=== PATIENT | female | born 1985 | race Hispanic/Latino ===

== ENCOUNTER 2019-08-01 06:14 | Emergency (ER) | payer OTHER ==
[2019-08-01] MEDS ORDERED: MORPHINE 4 MG/ML SYR ONE (07:14)
[2019-08-01] MEDS ORDERED: ONDANSETRON 4 MG/2 ML VIAL ONE (07:15)
[2019-08-01 07:17] LABS: Absolute Lymphocytes (CBC) 1.4 K/uL (0.7-4.9); Basophils % 0.2 % (0-1.3); Hematocrit 33.9 % (36.0-45.0); Lymphocytes % 10.1 % (15.3-44.8); MPV 9.1 fL (7.6-11.3); RBC Red Blood Cell Count 3.97 M/uL (3.86-4.86)
[2019-08-01 08:06] LABS: BUN Blood Urea Nitrogen 6 mg/dL (7-18); Bicarbonate 25 mmol/L (21-32); Glucose Level 94 mg/dL (74-106); HCG, Quantitative 934 mIU/mL (1-3); Potassium 3.7 mmol/L (3.5-5.1); Sodium Level 140 mmol/L (136-145)
--- NOTE | 2019-08-01 09:38 | RAD REPORT ---
EXAM DESCRIPTION: US - Transvaginal Study Probe - 08/01/2019 8:06 am CLINICAL HISTORY: retained POC. Given Cytotec 07/26. Worsening of pain bleed Pelvic pain. COMPARISON: No comparisons FINDINGS: The uterus appears enlarged measuring 9.3 x 4.8 x 7.0 cm. Dilatation of the endometrium is seen with echogenic material present measuring 4.5 x 2.8 cm. The ech ogenic material somewhat heterogenous and mild fluid is seen the adjacent within the endometrium. Both ovaries were obscured by bowel gas. No adnexal masses. No significant pelvic ascites. IMPRESSION: Large area of echogenic material (4.5 x 2.8 cm) within a dilated endometrium raises susp icion for retained products.
[2019-08-01] MEDS ORDERED: FENTANYL CITR 100 MCG/2 ML ONE (09:41)
--- NOTE | 2019-08-01 10:06 | ER ---
Nurse's Notes [facility] Name: Lubna Joe Age: 33 yrs Sex: Female : 1985 Arrival Date: 08/01/2019 Time: 06:18 Bed 6 Private MD: Diagnosis: Abnormal product of conception, unspecified-Retained product Presentation: 08/01 06:33 Presenting complaint: Patient states: miscarriage on 07/12/20. Misoprostol vaginally dm5 inserted on 07/26. passed a large clot on 07/30 and has had pain. woke up on 08/01/19 at 0400 with a lot of pain and a full pad. Pt has not had a full pad since but has been passing clots every time she uses the restroom. Pain rated at 10/10. Transition of care: patient was not received from another setting of care. Onset of symptoms was July 30, 2019. Risk Assessment: Do you want to hurt yourself or someone else? Patient reports no desire to harm self or others. Initial Sepsis Screen: Does the patient meet any 2 criteria? No. Patient's initial sepsis screen is negative. Does the patient have a suspected source of infection? No. Patient's initial sepsis screen is negative. Care prior to arrival: None. 06:33 Method Of Arrival: Ambulatory dm5 06:33 Acuity: LEONEL 3 dm5 Triage Assessment: 06:38 General: Appears in no apparent distress. uncomfortable. 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 - Social history:: Smoking status: Patient/guardian denies using tobacco. - Ebola Screening: : Patient negative for fever greater than or equal to 101.5 degrees Fahrenheit, and additional compatible Ebola Virus Disease symptoms Patient denies exposure to infectious person. Screenin:35 Abuse screen: Denies threats or abuse. Denies injuries from another. Nutritional wh screening: No deficits noted. Tuberculosis screening: No symptoms or risk factors identified. Fall Risk None identified. Assessment: 06:35 General: Appears in no apparent distress. Behavior is calm, cooperative, appropriate wh for age. Pain: Complains of pain in suprapubic area Pain radiates to back Pain currently is 9 out of 10 on a pain scale. Pain began 2-3 days ago. Neuro: Level of Consciousness is awake, alert, obeys commands, Oriented to person, place, time, situation, Appropriate for age. Cardiovascular: Heart tones S1 S2 Capillary refill < 3 seconds. Respiratory: Airway is patent Respiratory effort is even, unlabored, Respiratory pattern is regular, symmetrical, Breath sounds are clear bilaterally. GI: Abdomen is flat, non-distended, Abd is soft X 4 quads Abdomen is tender to palpation in suprapubic area. : Urine is Reports vaginal bleeding that is. EENT: No signs and/or symptoms were reported regarding the EENT system. Derm: Skin is intact, is healthy with good turgor, Skin is pink, warm \T\ dry. normal. Musculoskeletal: Circulation, motion, and sensation intact. 07:34 Reassessment: Patient appears in no apparent distress at this time. Patient and/or tw2 family updated on plan of care and expected duration. Pain level reassessed. Patient is alert, oriented x 3, equal unlabored respirations, skin warm/dry/pink. Patient states feeling better. 08:30 Reassessment: Patient appears in no apparent distress at this time. Patient and/or ph family updated on plan of care and expected duration. Pain level reassessed. Patient is alert, oriented x 3, equal unlabored respirations, skin warm/dry/pink. 09:22 Reassessment: Patient appears in no apparent distress at this time. Patient and/or ph family updated on plan of care and expected duration. Pain level reassessed. Patient is alert, oriented x 3, equal unlabored respirations, skin warm/dry/pink. Pt resting quietly, awaiting US results, family at bedside. 09:50 Reassessment: Patient appears in no apparent distress at this time. Patient and/or ph family updated on plan of care and expected duration. Pain level reassessed. Patient is alert, oriented x 3, equal unlabored respirations, skin warm/dry/pink. At bedside w/ ERP for pelvic exam, pt tolerated well. 10:19 Reassessment: Patient is alert, oriented x 3, equal unlabored respirations, skin ph warm/dry/pink. 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 Vital Signs: 06:38 BP 125 / 85; Pulse 93; Resp 18; Temp 98.8; Pulse Ox 99% on R/A; dm5 06:39 BP 122 / 85; Pulse 89; Resp 18; Temp 98.8; Pulse Ox 100% ; Weight 66.68 kg; Height 5 wh ft. 2 in. (157.48 cm); Pain 9/10; 07:34 BP 104 / 74; Pulse 86; Resp 17; Pulse Ox 97% on R/A; tw2 08:30 BP 108 / 70; Pulse 76; Resp 16; Pulse Ox 99% on R/A; ph 09:21 BP 102 / 69; Pulse 72; Resp 18; Pulse Ox 98% on R/A; ph 06:39 Body Mass Index 26.89 (66.68 kg, 157.48 cm) ED Course: 06:18 Patient arrived in ED. ds1 06:24 Kartik Carrillo PA is PHCP. jr8 06:24 Grayson Mercedes MD is Attending Physician. jr8 06:35 Joshua Walls is Primary Nurse. wh 06:36 Triage completed. dm5 06:38 Patient has correct armband on for positive identification. Bed in low position. Call light in reach. Side rails up X 1. Pulse ox on. NIBP on. 06:38 Arm band placed on right wrist. wh 06:55 Inserted saline lock: 20 gauge in right forearm, using aseptic technique. Blood oe collected. 08:06 Ultrasound completed. Patient tolerated well. sg3 08:07 US Transvaginal Study (Probe) In Process Unspecified. EDMS 09:50 Assist provider with pelvic exam: Set up pelvic tray. Performed by Kartik JAIN ph Patient tolerated well. 10:22 IV discontinued, intact, bleeding controlled, No redness/swelling at site. Pressure ph dressing applied. Administered Medications: 07:07 Drug: Zofran 4 mg Route: IVP; Site: right antecubital; ph 07:30 Follow up: Response: No adverse reaction ph 07:15 Drug: morphine 4 mg Route: IVP; Site: right antecubital; ph 07:30 Follow up: Response: No adverse reaction; Pain is decreased ph Outcome: 10:05 Discharge ordered by MD. calhoun 10:22 Discharged to home ambulatory, with family. ph 10:22 Condition: stable 10:22 Discharge instructions given to patient, Instructed on discharge instructions, follow up and referral plans. medication usage, Demonstrated understanding of instructions, follow-up care, medications, Prescriptions given X 2. 10:23 Patient left the ED. ph Signatures: Dispatcher [employer] EDVT Nhung Tee, RN RN dm5 Sangita Page ds1 Kartik Carrillo PA PA jr8 Nanci Bruno RN RN Krysta Rutledge RN RN tw2 Michael Wiley Winsy wh Godinez, Sarah 3
--- NOTE | 2019-08-01 10:07 | EDPHYS ---
Physician Documentation [facility] Name: Lubna Joe Age: 33 yrs Sex: Female : 1985 Arrival Date: 08/01/2019 Time: 06:18 Bed 6 Private MD: ED Physician Grayson Mercedes HPI: 08/01 07:36 This 33 yrs old Female presents to ER via Ambulatory with complaints of jr8 Vaginal Bleeding, Lower Abd Pain. 07:36 Onset: The symptoms/episode began/occurred gradually, 1 week(s) ago. Modifying factors: jr8 The symptoms are alleviated by nothing, the symptoms are aggravated by nothing. Associated signs and symptoms: Pertinent positives: cramping. Severity of symptoms: At their worst the symptoms were moderate, in the emergency department the symptoms are unchanged. The patient has not experienced similar symptoms in the past. The patient has been recently seen by a physician:. Patient stated that she had miscarriage at 13 weeks gestation. History of uterine fibroids as well. Undetermined cause of miscarry. Date of miscarry was June. Stated that she had retained POC. Was given Cytotec and then given another round of Cytotec after that. Having cramping and clots but noted that one large clot dislodged a lot of the Cytotec pills. Today having worsening of pain with large clots. 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 - Social history:: Smoking status: Patient/guardian denies using tobacco. - Ebola Screening: : Patient negative for fever greater than or equal to 101.5 degrees Fahrenheit, and additional compatible Ebola Virus Disease symptoms Patient denies exposure to infectious person. ROS: 07:36 Eyes: Negative for injury, pain, redness, and discharge, ENT: Negative for injury, jr8 pain, and discharge, Neck: Negative for injury, pain, and swelling, Cardiovascular: Negative for chest pain, palpitations, and edema, Respiratory: Negative for shortness of breath, cough, wheezing, and pleuritic chest pain, Back: Negative for injury and pain, MS/Extremity: Negative for injury and deformity, Skin: Negative for injury, rash, and discoloration, Neuro: Negative for headache, weakness, numbness, tingling, and seizure. 07:36 Abdomen/GI: Positive for abdominal cramps, Negative for nausea, vomiting, and diarrhea. 07:36 : Positive for vaginal bleeding. Exam: 07:36 Eyes: Pupils equal round and reactive to light, extra-ocular motions intact. Lids and jr8 lashes normal. Conjunctiva and sclera are non-icteric and not injected. Cornea within normal limits. Periorbital areas with no swelling, redness, or edema. ENT: Nares patent. No nasal discharge, no septal abnormalities noted. Tympanic membranes are normal and external auditory canals are clear. Oropharynx with no redness, swelling, or masses, exudates, or evidence of obstruction, uvula midline. Mucous membranes moist. Neck: Trachea midline, no thyromegaly or masses palpated, and no cervical lymphadenopathy. Supple, full range of motion without nuchal rigidity, or vertebral point tenderness. No Meningismus. Cardiovascular: Regular rate and rhythm with a normal S1 and S2. No gallops, murmurs, or rubs. Normal PMI, no JVD. No pulse deficits. Respiratory: Lungs have equal breath sounds bilaterally, clear to auscultation and percussion. No rales, rhonchi or wheezes noted. No increased work of breathing, no retractions or nasal flaring. Back: No spinal tenderness. No costovertebral tenderness. Full range of motion. Skin: Warm, dry with normal turgor. Normal color with no rashes, no lesions, and no evidence of cellulitis. MS/ Extremity: Pulses equal, no cyanosis. Neurovascular intact. Full, normal range of motion. Neuro: Awake and alert, GCS 15, oriented to person, place, time, and situation. Cranial nerves II-XII grossly intact. Motor strength 5/5 in all extremities. Sensory grossly intact. Cerebellar exam normal. Normal gait. 07:36 Abdomen/GI: Inspection: gravid appearance, is noted, Bowel sounds: active, all quadrants, Palpation: soft, in all quadrants, moderate abdominal tenderness, in the right lower quadrant and left lower quadrant, Indicators: McBurney's point is not tender, Fernandez's sign is negative, Rovsing's sign is negative, Obturator sign is negative, Liver: tenderness, is not appreciated. Vital Signs: 06:38 BP 125 / 85; Pulse 93; Resp 18; Temp 98.8; Pulse Ox 99% on R/A; dm5 06:39 BP 122 / 85; Pulse 89; Resp 18; Temp 98.8; Pulse Ox 100% ; Weight 66.68 kg; Height 5 wh ft. 2 in. (157.48 cm); Pain 9/10; 07:34 BP 104 / 74; Pulse 86; Resp 17; Pulse Ox 97% on R/A; tw2 08:30 BP 108 / 70; Pulse 76; Resp 16; Pulse Ox 99% on R/A; ph 09:21 BP 102 / 69; Pulse 72; Resp 18; Pulse Ox 98% on R/A; ph 06:39 Body Mass Index 26.89 (66.68 kg, 157.48 cm) wh MDM: 06:31 Patient medically screened. [facility] 10:01 Data reviewed: vital signs, nurses notes, lab test result(s), radiologic studies, jr8 ultrasound. Data interpreted: Pulse oximetry: on room air is 98 %. Interpretation: normal. Counseling: I had a detailed discussion with the patient and/or guardian regarding: the historical points, exam findings, and any diagnostic results supporting the discharge/admit diagnosis, lab results, radiology results, the need for outpatient follow up, an OB/Gyne specialist, to return to the emergency department if symptoms worsen or persist or if there are any questions or concerns that arise at home. ED course: Patient hemodynamically stable. Pelvic exam revealed small amount of maroon blood. No discharge present. Os still open. Patient without fever. Pain controlled. No s/s of endometritis and no mass hemorrhage present. Patient has f/u appointment with [facility] tomorrow. Explained to her that she still appears to have some retained POC but that she is very stable at this moment and without signs of infection. Recommended f/u tomorrow with OB. If at anytime she were to worsen, have hemorrhage, or to run fevers to immediately come back for emergent DNC. Otherwise acceptable to go home today since she has immediate f/u tomorrow with OB. Patient good with this plan . 08/01 06:36 Order name: CBC with Diff; Complete Time: 07:54 08/01 06:36 Order name: Basic Metabolic Panel; Complete Time: 08:07 08/01 06:36 Order name: Quantitative Hcg; Complete Time: 08:07 08/01 06:36 Order name: T\T\S; Complete Time: 08:07 08/01 06:36 Order name: US Transvaginal Study (Probe); Complete Time: 09:41 08/01 06:36 Order name: IV; Complete Time: 06:41 Administered Medications: 07:07 Drug: Zofran 4 mg Route: IVP; Site: right antecubital; ph 07:30 Follow up: Response: No adverse reaction ph 07:15 Drug: morphine 4 mg Route: IVP; Site: right antecubital; ph 07:30 Follow up: Response: No adverse reaction; Pain is decreased ph Disposition: 08/01/19 10:05 Discharged to Home. Impression: Abnormal product of conception, unspecified - Retained product. - Condition is Stable. - Discharge Instructions: Incomplete Miscarriage. - Prescriptions for Tylenol- Codeine #3 300-30 mg Oral Tablet - take 2 tablets by ORAL route every 6 hours As needed; 20 tablet. Doxycycline Monohydrate 100 mg Oral Tablet - take 1 tablet by ORAL route every 12 hours for 10 days; 20 tablet. - Medication Reconciliation Form, Thank You Letter, Antibiotic Education, Prescription Opioid Use form. - Follow up: Private Physician; When: Tomorrow; Reason: Recheck today's complaints, Continuance of care, Re-evaluation by your physician. - Problem is new. - Symptoms have improved. Signatures: Dispatcher [employer] EDMS Nhung Tee RN RN dm5 Kartik Carrillo PA PA jr8 Nanci Bruno RN RN ph Joshua Walls Corrections: (The following items were deleted from the chart) 10:14 10:01 ED course: Patient hemodynamically stable. Pelvic exam revieled small amount of lj mack blood. No discharge present. Os still open. Patient without fever or systemic WBC count. Pain controlled. No s/s of endometritis and no mass hemorrhage present. Patient has f/u appointment with [facility] tomorrow. Explained to her that she still appears to have some retained POC but that she is very stable at this moment and without signs of infection. Recommended f/u tomorrow with OB. If at anytime she were to worsen, have hemorrhage, or to run fevers to immediately come back for emergent DNC. Otherwise acceptable to go home today since she has immediate f/u tomorrow with OB. Patient good with this plan . jr8 10:23 10:05 08/01/2019 10:05 Discharged to Home. Impression: Abnormal product of conception, ph unspecified - Retained product. Condition is Stable. Forms are Medication Reconciliation Form, Thank You Letter, Antibiotic Education, Prescription Opioid Use. Follow up: Private Physician; When: Tomorrow; Reason: Recheck today's complaints, Continuance of care, Re-evaluation by your physician. Problem is new. Symptoms have improved. jr8
[2019-08-01 10:37] VITALS: TEMP 98.8
[2019-08-01 10:43] VITALS: BP 102/69; O2SAT 98
== END 2019-08-01 10:23 | disposition home or self-care (01) ==
LOC: ER 06:14
DX: O02.9 Abnormal product of conception, unspecified (principal)
CPT/HCPCS: 85025; 80048; 36415; 86900; 86850; 86901; 84702; 76830; 96375; 96374; 99284; J3010; J2405

== ENCOUNTER 2019-09-23 19:13 | Emergency (ER) | payer OTHER ==
--- OUTSIDE RECORDS SUMMARY | 2019-09-23 19:16 | XMS REPORT | Summary of Care ---
:1985 Author Organization [facility] - [facility] Address [address] [place] [address] Care Team Providers Name Role Phone Josh Smith MD Primary Care Provider Reason for Visit Reason Comments Follow-up Encounter Details Date Type Department Care Team Description 09/06/2019 Office Visit [facility], Nohelia Amato MD Retained products of conception after miscarriage (Primary Dx); Healthcare- [address] Encounter for BCP ( control pills) initial prescription; [address] [place], [place] [address]DR. Dysmenorrhea [address] [facility] [address] [place] [address] [phone] Allergies No Known Allergiesdocumented as of this encounter (statuses as of 09/06/2019) Medications Medication Sig Dispensed Refills Start End Date Status Date ibuprofen 600 mg Take 1 30 tablet 1 Active tabletIndications: tablet by 0 Retained products of mouth every conception after 6 (six) miscarriage, S/P D&C hours as (status post dilation needed for and curettage) Pain (scale 1-3) or Pain (scale 4-6). ferrous sulfate 325 Take 1 60 capsule 3 Active mg (65 mg iron) SR capsule by 0 capsuleIndications: mouth 2 Retained products of (two) times conception after daily. miscarriage, S/P D&C (status post dilation and curettage) Ascorbic Acid Take 1 30 tablet 3 Active (VITAMIN C) 500 mg TAB-CAP/M2 0 ChewIndications: by mouth Retained products of daily. conception after miscarriage, S/P D&C (status post dilation and curettage) foLIC acid 1 mg Take 1 30 tablet 3 Active tabletIndications: tablet by 0 Retained products of mouth daily. conception after miscarriage, S/P D&C (status post dilation and curettage) norgestimate-ethinyl Take 1 4 Package 3 Active estradiol 0.25-35 tablet by 0 mg-mcg per mouth daily. tabletIndications: Encounter for BCP ( control pills) initial prescription ibuprofen 600 mg Take 1 30 tablet 1 Active tabletIndications: tablet by 0 Dysmenorrhea mouth every 6 (six) hours as needed for Pain (scale 1-3) or Pain (scale 4-6). methylergonovine 0.2 Take 1 4 tablet 0 09/06/19 Discontinued mg tabletIndications: tablet by 0 20 (Therapy Retained products of mouth every completed) conception after 6 (six) miscarriage, S/P D&C hours. (status post dilation and curettage) HYDROcodone-acetamino Take 1 20 tablet 0 09/06/19 Discontinued phen 5-325 mg tablet by 0 20 (Therapy tabletIndications: mouth every completed) S/P D&C (status post 6 (six) dilation and hours as curettage) needed for Pain (scale 4-6) or Pain (scale 7-10). documented as of this encounter (statuses as of 09/06/2019) Active Problems Problem Noted Date Encounter for BCP ( control pills) initial prescription 09/06/2019 Dysmenorrhea 09/06/2019 Postoperative anemia due to acute blood loss 08/07/2019 Intramural leiomyoma of uterus 08/07/2019 Retained products of conception after miscarriage 07/26/2019 Chronic pain of multiple joints 04/20/2018 Seasonal allergies documented as of this encounter (statuses as of 09/06/2019) Resolved Problems Problem Noted Date Resolved Date Anemia 08/06/2019 08/07/2019 13 weeks gestation of 07/07/2019 07/26/2019 Abdominal cramping affecting 07/07/2019 07/07/2019 Threatened , antepartum 07/07/2019 07/26/2019 Abnormal maternal glucose tolerance, antepartum 07/07/2019 08/23/2019 Iron deficiency anemia 04/20/2018 07/07/2019 documented as of this encounter (statuses as of 09/06/2019) Immunizations Name Administration Dates Next Due Influenza Virus Vaccine Quad .5 mL IM 6+ MO 06/09/2019 documented as of this encounter Social History Tobacco Use Types Packs/Day Years Used Date Never Smoker Smokeless Tobacco: Never Used Alcohol Use Drinks/Week oz/Week Comments No Financial Resource Strain Answer Date Recorded How hard is it for you to pay for the very basics like Not hard at all 2019 food, housing, medical care, and heating? Food Insecurity Answer Date Recorded Within the past 12 months, you worried that your food would Never true 2019 run out before you got money to buy more. Within the past 12 months, the food you bought just didn't Never true 2019 last and you didn't have money to get more. Transportation Needs Answer Date Recorded In the past 12 months, has lack of transportation kept you from No 08/06/2019 medical appointments or from getting medications? In the past 12 months, has lack of transportation kept you from No 08/06/2019 meetings, work, or getting things needed for daily living? Sex Assigned at Date Recorded Not on file Job Start Date Occupation Industry Not on file Not on file Not on file Travel History Travel Start Travel End No recent travel history available. documented as of this encounter Last Filed Vital Signs Vital Sign Reading Time Taken Comments Blood Pressure 105/75 09/06/2019 10:05 AM GLASS GRINDER Pulse 87 09/06/2019 10:05 AM GLASS GRINDER Temperature 36.8 C (98.2 F) 09/06/2019 10:05 AM GLASS GRINDER Respiratory Rate 18 09/06/2019 10:05 AM GLASS GRINDER Oxygen Saturation - - Inhaled Oxygen Concentration - - Weight 64.9 kg (143 lb) 09/06/2019 10:05 AM GLASS GRINDER Height 157.5 cm (5' 2") 09/06/2019 10:05 AM GLASS GRINDER Body Mass Index 26.16 09/06/2019 10:05 AM GLASS GRINDER documented in this encounter Progress Notes Nohelia Guerra MD - 09/06/2019 9:45 AM CST Chief complaint: Chief Complaint Patient presents with Follow-up HPI Lubna Joe is a 33 year old female s/p D&C for retained POCs on 08/06/2019 presented for follow-up. States that she had spotting since last seen and then on 09/01/2019 had heavy vaginal bleeding with cramping. Cramping relieved with taking Ibuprofen 2x/day. Feels like her period but a little heavier. Denies chest pain, SOB, dizziness, palpitations, or fatigue. Histories OB History Para Term AB Living 1 0 0 0 1 0 SAB TAB Ectopic Multiple Live Births 1 0 0 0 0 # Outcome Date GA Lbr Rowdy/2nd Weight Sex Delivery Anes PTL Lv 1 SAB 07/12/19 13w5d Past Medical History: Diagnosis Date Abnormal maternal glucose tolerance, antepartum 07/07/2019 Abnormal uterine bleeding Chronic pain of multiple joints 04/20/2018 Intramural leiomyoma of uterus 08/07/2019 Iron deficiency anemia 04/20/2018 Seasonal allergies Family History Problem Relation Age of Onset Hypertension Mother Diabetes Mother Kidney disease Mother Hypertension Father Hypercholesterolemia Father Kidney disease Father Stomach Cancer Maternal Grandmother Arthritis NoFHx Asthma NoFHx defects NoFHx Breast Cancer NoFHx Colon Cancer NoFHx Ovarian Cancer NoFHx Uterine Cancer NoFHx Cancer NoFHx Depression NoFHx Genetic NoFHx Heart NoFHx High cholesterol NoFHx Mental retardation NoFHx Neurological NoFHx Osteoporosis NoFHx Psychiatry NoFHx Other - see comments NoFHx Family Status Relation Name Status Mo Alive Fa Alive MGMo (Not Specified) NoFHx (Not Specified) Past Surgical History: Procedure Laterality Date DILATION AND CURETTAGE (SHX) 08/06/2019 DILATION AND CURETTAGE (SHX) N/A 08/06/2019 Surgeon: Nohelia Guerra MD; [place] [facility] [place] History Socioeconomic History Marital status: Spouse name: Not on file Number of children: Not on file Years of education: 12 Highest education level: Not on file Occupational History Not on file Social Needs Financial resource strain: Not hard at all Food insecurity: Worry: Never true Inability: Never true Transportation needs: Medical: No Non-medical: No Tobacco Use Smoking status: Never Smoker Smokeless tobacco: Never Used Substance and Sexual Activity Alcohol use: No Drug use: No Sexual activity: Yes Partners: Male control/protection: None Lifestyle Physical activity: Days per week: Not on file Minutes per session: Not on file Stress: Not on file Relationships Social connections: Talks on phone: Not on file Gets together: Not on file Attends mu-ism service: Not on file Active member of club or organization: Not on file Attends meetings of clubs or organizations: Not on file Relationship status: Not on file Intimate partner violence: Fear of current or ex partner: Not on file Emotionally abused: Not on file Physically abused: Not on file Forced sexual activity: Not on file Other Topics Concern Not on file Social History Narrative Denies domestic or physical violence within the home. Evangelical Preference: Roman [employer] Social History Substance and Sexual Activity Sexual Activity Yes Partners: Male control/protection: None Labs Beta-HCG drawn this morning, pending Radiology No new radiology. Allergies Lubna has No Known Allergies. Medications Lubna has a current medication list which includes the following prescription (s): folic acid, ascorbic acid, ferrous sulfate, and ibuprofen. Review of Systems Genitourinary: Positive for vaginal bleeding. BP 105/75 (BP Location: Left arm, Patient Position: Sitting, BP CUFF SIZE: Adult Small) | Pulse 87| Temp 36.8 C (98.2 F) (Oral) | Resp 18 | Ht 5' 2 " (1.575 m) | Wt 143 lb (64.9 kg) | BMI 26.16 kg/m Pregravid BMI: Could not be calculated Physical Exam Vitals reviewed. Constitutional: She is oriented to person, place, and time. She appears well- developed and well-nourished. Cardiovascular: Regular rate and rhythm. Pulmonary/Chest: Normal inspiratory effort. Abdominal: Abdomen is soft. No tenderness present. No hernia palpated or inspected. Neuro/Psychiatric: She has a normal mood and affect. She is oriented to person, place, and time. Skin: Skin normal. No rash present. External genitalia: Normal external genitalia appropriate for age. Vagina: Minimal amount dark blood in the vaginal vault Assessment/Plan Retained products of conception after miscarriage (primary encounter diagnosis) Comment: Downtrending Beta-HCG; Beta-HCG result pending this am. Plan: POCT TEST; Repeat Beta-HCG weekly until negative. Continue pelvic rest until negative Encounter for BCP ( control pills) initial prescription Comment: Patient denies self or family history of thromboembolic disease or thrombophilia, migraine headache. I counseled patient regarding use of oral contraceptives. There are combined oral contraceptive, which has both estrogen and progestin, and there is progestin only oral contraceptive. With typical use , 9 out 100 women get in the first year and with perfect use 0.3 out of 100 womenget in the first year according to ACOG Practice Bulletin. Risks include but not limited to increase risk of thromboembolic disease, headache, weight gain, mood lability, and breast cancer. Decrease risks of ovarian cancer, colon cancer, and endometrial cancer. Oral contraceptive may decrease milk supply. Alternatives reviewed include patch, ring, Depo-Provera, Nexplanon, and IUD. Advise using condoms for STDs prevention. Plan: norgestimate-ethinyl estradiol 0.25-35 mg-mcg per tablet extended regimen (period every 3 months) Dysmenorrhea Plan: ibuprofen 600 mg tablet Return to clinic in 04/2020 for WWE or PRN when she is ready to proceed with myomectomy Discussed treatment options. Medications as ordered. Reviewed patient instructions and provided printed copy. This visit did not involve counseling and coordination that comprised more than 50% of the visit time. Nohelia Guerra MD 09/06/2019 11:55 AM documented in this encounter Plan of Treatment Date Type Specialty Care Team Description 05/08/2020 Office Visit Obstetrics & Gynecology Nohelia Guerra MD [address] [place] [address] [place] [address] [phone] Health Maintenance Due Date Last Done Comments VARICELLA VACCINES (1 of 2 - 1985 2-dose childhood series) DTaP,Tdap,and Td Vaccines ( - 11/28/1995 Tdap) PAP SMEAR 05/19/2022 05/19/2019 INFLUENZA VACCINE Completed 06/09/2019 PNEUMOCOCCAL 0-64 YEARS COMBINED Aged Out No longer eligible based on SERIES patient's age to complete this topic documented as of this encounter Procedures Procedure Name Priority Date/Time Associated Diagnosis Comments POCT TEST Routine 09/06/2019 Retained products of Results for this conception after procedure are in the miscarriage results section. documented in this encounter Results POCT TEST (09/06/2019) POCT PREG Positive On board controls acceptable Yes with C Line POCT PREG LOT # POCT PREG TEST DATE Specimen Urine - URINE, CLEAN CATCH documented in this encounter Visit Diagnoses Diagnosis Retained products of conception after miscarriage - Primary Encounter for BCP ( control pills) initial prescription General counseling for prescription of oral contraceptives Dysmenorrhea documented in this encounter documented as of this encounter
--- OUTSIDE RECORDS SUMMARY | 2019-09-23 19:16 | XMS REPORT ---
:1984 Author Organization [facility] Address [address] [place] [address] Dr. Harris [address] [place] [address] Care Team Providers Name Role Phone Unavailable Unavailable Unavailable Problems This patient has no known problems. Allergies, Adverse Reactions, Alerts This patient has no known allergies or adverse reactions. Medications This patient has no known medications.
--- OUTSIDE RECORDS SUMMARY | 2019-09-23 19:16 | XMS REPORT | Summary of Care ---
:1985 Author Organization [facility] - [facility] Address [address] [place] [address] Care Team Providers Name Role Phone Josh Smith MD Primary Care Provider Reason for Visit Reason Comments Follow-up Encounter Details Date Type Department Care Team Description 09/06/2019 Office Visit [facility] Guerra, Nohelia Amato MD Retained products of conception after miscarriage (Primary Dx); Healthcare- [address] Encounter for BCP ( control pills) initial prescription; [address] [place], [place] [address]DR. Dysmenorrhea [address] [facility] [address] [place] [address] [phone] Allergies No Known Allergiesdocumented as of this [...] Comments Blood Pressure 105/75 09/06/2019 10:05 AM HARDWARE SUPPLIES SALES REPRESENTATIVE Pulse 87 09/06/2019 10:05 AM HARDWARE SUPPLIES SALES REPRESENTATIVE Temperature 36.8 C (98.2 F) 09/06/2019 10:05 AM HARDWARE SUPPLIES SALES REPRESENTATIVE Respiratory Rate 18 09/06/2019 10:05 AM HARDWARE SUPPLIES SALES REPRESENTATIVE Oxygen Saturation - - Inhaled Oxygen Concentration - - Weight 64.9 kg (143 lb) 09/06/2019 10:05 AM HARDWARE SUPPLIES SALES REPRESENTATIVE Height 157.5 cm (5' 2") 09/06/2019 10:05 AM HARDWARE SUPPLIES SALES REPRESENTATIVE Body Mass Index 26.16 09/06/2019 10:05 AM HARDWARE SUPPLIES SALES REPRESENTATIVE documented in this encounter Progress Notes Nohelia [...] N/A 08/06/2019 Surgeon: Nohelia Guerra MD; Location: [facility] Social History Socioeconomic History Marital status: Spouse [...] file Gets together: Not on file Attends buddhist service: Not on file Active member of [...] physical violence within the home. Evangelical Preference: [employer] Social History Substance and Sexual Activity Sexual [...] Visit Obstetrics & Gynecology Nohelia Guerra MD [address] [place] [address] [place] [address] [phone] Health Maintenance Due Date Last Done Comments [...]
--- OUTSIDE RECORDS SUMMARY | 2019-09-23 19:17 | XMS REPORT | Summary of Care ---
:1985 Author Organization [facility] - Health Address [address] [place] [address] Care Team Providers Name Role Phone Josh Smith MD Primary Care Provider Encounter Details Date Type Department Care Team Description 08/18/2019 Orders Only [facility] Doctor Unassigned, No [address] [facility] [place] [address] [address] [place] [address] Allergies No Known Allergiesdocumented as of this encounter (statuses as of 08/18/2019) Medications Medication Sig Dispensed Refills Start Date End Date Status ibuprofen 600 mg Take 1 tablet 30 tablet 1 08/06/2019 Active tabletIndications: by mouth every Retained products of 6 (six) hours conception after as needed for miscarriage, S/P D&C Pain (scale (status post dilation 1-3) or Pain and curettage) (scale 4-6). methylergonovine 0.2 mg Take 1 tablet 4 tablet 0 08/06/2019 Active tabletIndications: by mouth every Retained products of 6 (six) hours. conception after miscarriage, S/P D&C (status post dilation and curettage) ferrous sulfate 325 mg Take 1 capsule 60 capsule 3 08/06/2019 Active (65 mg iron) SR by mouth 2 capsuleIndications: (two) times Retained products of daily. conception after miscarriage, S/P D&C (status post dilation and curettage) Ascorbic Acid (VITAMIN Take 1 30 tablet 3 08/06/2019 Active C) 500 mg TAB-CAP/M2 by ChewIndications: mouth daily. Retained products of conception after miscarriage, S/P D&C (status post dilation and curettage) foLIC acid 1 mg Take 1 tablet 30 tablet 3 08/06/2019 Active tabletIndications: by mouth daily. Retained products of conception after miscarriage, S/P D&C (status post dilation and curettage) doxycycline 100 mg EC Take 100 mg by 0 Active tablet mouth 2 (two) times daily. HYDROcodone-acetaminophe Take 1 tablet 20 tablet 0 08/07/2019 Active n 5-325 mg by mouth every tabletIndications: S/P 6 (six) hours D&C (status post as needed for dilation and curettage) Pain (scale 4-6) or Pain (scale 7-10). documented as of this encounter (statuses as of 08/18/2019) Active Problems Problem Noted Date Postoperative anemia due to acute blood loss 08/07/2019 Intramural leiomyoma of uterus 08/07/2019 Retained products of conception after miscarriage 07/26/2019 Abnormal maternal glucose tolerance, antepartum 07/07/2019 Chronic pain of multiple joints 04/20/2018 Seasonal allergies documented as of this encounter (statuses as of 08/18/2019) Resolved Problems Problem Noted Date Resolved Date Anemia 08/06/2019 08/07/2019 13 weeks gestation of 07/07/2019 07/26/2019 Abdominal cramping affecting 07/07/2019 07/07/2019 Threatened , antepartum 07/07/2019 07/26/2019 Iron deficiency anemia 04/20/2018 07/07/2019 documented as of this encounter (statuses as of 08/18/2019) Immunizations Name Administration Dates Next Due Influenza [...] of this encounter Last Filed Vital Signs Not on filedocumented in this encounter Plan of Treatment Date Type Specialty Care Team Description 08/23/2019 Office Visit Obstetrics & Gynecology Nohelia Guerra MD [address] [place] [address] [place] [address] Health Maintenance Due Date Last Done Comments VARICELLA VACCINES (1 of 2 - 1985 2-dose childhood series) DTaP,Tdap,and Td Vaccines (1 - 11/28/1995 Tdap) PAP SMEAR 05/19/2022 05/19/2019 INFLUENZA VACCINE Completed 06/09/2019 PNEUMOCOCCAL 0-64 YEARS COMBINED Aged Out No longer eligible based on SERIES patient's age to complete this topic documented as of this encounter Procedures Procedure Name Priority Date/Time Associated Diagnosis Comments EXTERNAL PROVIDER Routine 08/18/2019 12:01 AM REAL TIME OPERATOR RECORDS documented in this encounter Results Not on filedocumented in this encounter Insurance Payer Benefit Plan / Group Subscriber ID Effective Dates Phone Address Type CORINE POOL II [id number] 2019-Present HMO/PPO/POS documented as of this encounter
--- OUTSIDE RECORDS SUMMARY | 2019-09-23 19:17 | XMS REPORT | Summary of Care ---
:1985 Author Organization [facility] Address [address] [place] [address] Care Team Providers Name Role Phone Josh Smith MD Primary Care Provider Reason for Visit Reason Comments LAB Encounter Details Date Type Department Care Team Description 08/23/2019 Enrichment Director Visit [facility] Nohelia Guerra MD [address] [place] [address] [address] [place] [address] Post-operative Professional Office Pob, Ad[facility] Phlebotomy Lab Professional Office [address] , [address] [place] [address] Allergies No Known Allergiesdocumented as of this encounter (statuses as of 08/23/2019) Medications Medication Sig Dispensed Refills Start Date [...] S/P D&C (status post dilation and curettage) HYDROcodone-acetaminophe Take 1 tablet 20 tablet 0 08/07/2019 Active n 5-325 mg by mouth every tabletIndications: S/P 6 (six) hours D&C (status post as needed for dilation and curettage) Pain (scale 4-6) or Pain (scale 7-10). documented as of this encounter (statuses as of 08/23/2019) Active Problems Problem Noted Date Postoperative anemia due to acute blood loss 08/07/2019 Intramural leiomyoma of uterus 08/07/2019 Retained products of conception after miscarriage 07/26/2019 Chronic pain of multiple joints 04/20/2018 Seasonal allergies documented as of this encounter (statuses as of 08/23/2019) Resolved Problems Problem Noted Date Resolved Date Anemia 08/06/2019 08/07/2019 13 weeks gestation of 07/07/2019 07/26/2019 Abdominal cramping affecting 07/07/2019 07/07/2019 Threatened , antepartum 07/07/2019 07/26/2019 Abnormal maternal glucose tolerance, antepartum 07/07/2019 08/23/2019 Iron deficiency anemia 04/20/2018 07/07/2019 documented as of this encounter (statuses as of 08/23/2019) Immunizations Name Administration Dates Next Due Influenza [...] Treatment Date Type Specialty Care Team Description 09/06/2019 Routine Obstetrics & Guerra, Nohelia Amato MD Visit Gynecology [address] [place] [address] [place] [address] [phone] Name Type Priority Associated Diagnoses Order Schedule CBC WITH DIFFERENTIAL LAB Routine Post-operative state Ordered: 08/23/2019 Health Maintenance Due Date Last Done Comments VARICELLA VACCINES (1 of 2 - 1985 2-dose childhood series) DTaP,Tdap,and Td Vaccines ( - 11/28/1995 Tdap) PAP SMEAR 05/19/2022 05/19/2019 INFLUENZA VACCINE Completed 06/09/2019 PNEUMOCOCCAL 0-64 YEARS COMBINED Aged Out No longer eligible based on SERIES patient's age to complete this topic documented as of this encounter Results Not on filedocumented in this encounter Visit Diagnoses Diagnosis Post-operative state Other postprocedural status documented in this encounter documented as of this encounter
--- OUTSIDE RECORDS SUMMARY | 2019-09-23 19:17 | XMS REPORT | Summary of Care ---
:1985 Author Organization [facility] Address [address] [place] [address] Care Team Providers Name Role Phone Josh Smith MD Primary Care Provider Reason for Visit Reason Comments POST-OP Follow-up Encounter Details Date Type Department Care Team Description 08/23/2019 Office Visit [facility] Women's GuerraNohelia MD Post-operative [address] (Primary Dx) [address] [place] [address] [address] [phone] Allergies No Known Allergiesdocumented as of this encounter (statuses as of 08/23/2019) Medications Medication Sig Dispensed Refills Start End Date Status Date ibuprofen 600 mg Take 1 30 tablet 1 Active tabletIndications: tablet by 0 Retained products of mouth every conception after 6 (six) miscarriage, S/P D&C hours as (status post dilation needed for and curettage) Pain (scale 1-3) or Pain (scale 4-6). methylergonovine 0.2 Take 1 4 tablet 0 Active mg tabletIndications: tablet by 0 Retained products of mouth every conception after 6 (six) miscarriage, S/P D&C hours. (status post dilation and curettage) ferrous sulfate 325 Take 1 60 capsule [...] S/P D&C (status post dilation and curettage) HYDROcodone-acetamino Take 1 20 tablet 0 Active phen 5-325 mg tablet by 0 tabletIndications: mouth every S/P D&C (status post 6 (six) dilation and hours as curettage) needed for Pain (scale 4-6) or Pain (scale 7-10). doxycycline 100 mg EC Take 100 mg 0 08/23/19 Discontinued tablet by mouth 2 20 (Therapy (two) times completed) daily. documented as of this encounter (statuses as [...] Sign Reading Time Taken Comments Blood Pressure 101/68 08/23/2019 10:11 AM LEAD DIE MOLDER Pulse 85 08/23/2019 10:11 AM LEAD DIE MOLDER Temperature 36.6 C (97.8 F) 08/23/2019 10:11 AM LEAD DIE MOLDER Respiratory Rate 18 08/23/2019 10:11 AM LEAD DIE MOLDER Oxygen Saturation - - Inhaled Oxygen Concentration - - Weight 65.8 kg (145 lb) 08/23/2019 10:11 AM LEAD DIE MOLDER Height 157.5 cm (5' 2") 08/23/2019 10:11 AM LEAD DIE MOLDER Body Mass Index 26.52 08/23/2019 10:11 AM LEAD DIE MOLDER documented in this encounter Progress Notes Nohelia Guerra MD - 08/23/2019 9:45 AM CST Chief Complaint Patient presents with POST-OP Follow-up Lub[place] Joe is a 33 year old female s/p D&C for retained POCs on 08/06/2019 presented for post-op check. Surgery was complicated with bleeding and patient had symptomatic anemia post op and received blood transfusion. + cramping abdominal pain (3/10 in severity), - fever, - chills, - nausea, - vomiting, - chest pain, - SOB, - constipation, or - diarrhea. States that she had light vaginal bleeding post surgery and about 2-3 days ago, bleeding became heavier with passage of small clots. She changed pad q 3 hours with 50% of the pad soaked. Denies palpitations, dizziness, fatigue. Past Medical History: Diagnosis Date Abnormal maternal glucose tolerance, antepartum 07/07/2019 Abnormal uterine bleeding Chronic pain of multiple joints 04/20/2018 Intramural leiomyoma of uterus 08/07/2019 Iron deficiency anemia 04/20/2018 Seasonal allergies Past Surgical History: Procedure Laterality Date DILATION AND CURETTAGE (SHX) 08/06/2019 DILATION AND CURETTAGE (SHX) N/A 08/06/2019 Surgeon: Nohelia Guerra MD; [place] [facility] [place] Allergies Current Outpatient Medications on File Prior to Visit Medication Sig Dispense Refill ferrous sulfate 325 mg (65 mg iron) SR capsule Take 1 capsule by mouth 2 ( two) times daily. 60 capsule 3 ibuprofen 600 mg tablet Take 1 tablet by mouth every 6 (six) hours as needed for Pain (scale 1-3) or Pain (scale 4-6). 30 tablet 1 methylergonovine 0.2 mg tablet Take 1 tablet by mouth every 6 (six) hours. 4 tablet 0 HYDROcodone-acetaminophen 5-325 mg tablet Take 1 tablet by mouth every 6 ( six) hours as needed for Pain (scale 4-6) or Pain (scale 7-10). 20 tablet 0 Ascorbic Acid (VITAMIN C) 500 mg Chew Take 1 TAB-CAP/M2 by mouth daily. 30 tablet 3 foLIC acid 1 mg tablet Take 1 tablet by mouth daily. 30 tablet 3 No current facility-administered medications on file prior to visit. Family History Problem Relation Age of Onset [...] Psychiatry NoFHx Other - see comments NoFHx Social History Socioeconomic History Marital status: Spouse [...] file Gets together: Not on file Attends christianity service: Not on file Active member of [...] domestic or physical violence within the home. Bahai Preference: Church BP: (101)/(68) Temp: [36.6 C (97.8 F)] Temp source: Oral (08/23 1011) Pulse: [85] Resp: [18] SpO2: -- Height: [5' 2" (157.5 cm)] Weight: [145 lb (65.8 kg)] BMI (calculated): [26.52] Physical Exam Vitals reviewed. Constitutional: She is oriented to person, place, and time. She appears well- developed, well-nourished and well-groomed. Cardiovascular: Regular rate and rhythm. Pulmonary/Chest: Normal inspiratory effort. Abdominal: Abdomen is soft. No tenderness present. No hernia palpated or inspected. Neuro/Psychiatric: She has a normal mood and affect. : No active bleeding noted. Cervix closed. Small amount of pink tinge mucousy discharge noted.No fundal tenderness appreciated. Uterus palpated at the umbilicus (known large fibroid) UTERINE CONTENTS, EVACUATION: - CHORIONIC VILLI AND DECIDUA CONSISTENT WITH PRODUCTS OF CONCEPTION A/P: Post-operative state (primary encounter diagnosis) Comment: UPT slightly positive today. Exam non-significant Plan: POCT TEST, HCG, QUANTITATIVE, , CBC WITH DIFF Pathology reviewed RTC in 2 wks for follow-up Recommend myomectomy prior to trying for Nohelia Guerra MD #[id number] 08/23/2019 10:33 AM documented in this encounter Plan of Treatment Date Type Specialty Care Team Description 08/23/2019 Photographic Process Worker Visit Phlebotomy Nohelia Guerra MD [address] [facility] [address] [place], [place] [address] Post-operative Pob, Adc Lab Main state 09/06/2019 Routine Obstetrics & Nohelia Guerra MD Visit Gynecology [address] [facility] [address] [place], [place] [address] Name Type Priority Associated Diagnoses Order Schedule HCG, QUANTITATIVE, LAB Routine Post-operative state 3 Occurrences starting 08/23/2019 until 09/23/2019 CBC WITH DIFF LAB Routine Post-operative state Expected: 08/23/2019, Expires: 08/23/2020 Health Maintenance Due Date Last Done Comments VARICELLA VACCINES ( of 2 - 1985 2-dose childhood series) DTaP,Tdap,and Td Vaccines ( - 11/28/1995 Tdap) PAP SMEAR 05/19/2022 05/19/2019 INFLUENZA VACCINE Completed 06/09/2019 PNEUMOCOCCAL 0-64 YEARS COMBINED Aged Out No longer eligible based on SERIES patient's age to complete this topic documented as of this encounter Procedures Procedure Name Priority Date/Time Associated Diagnosis Comments POCT TEST Routine 08/23/2019 Post-operative state documented in this encounter Results POCT TEST (08/23/2019) POCT PREG Positive On board controls acceptable Yes with C Line POCT PREG LOT # POCT PREG TEST DATE Specimen Urine - URINE, CLEAN CATCH documented in this encounter Visit Diagnoses Diagnosis Post-operative state - Primary Other postprocedural status documented in this encounter documented as of this encounter
--- OUTSIDE RECORDS SUMMARY | 2019-09-23 19:17 | XMS REPORT | Summary of Care ---
:1985 Author Organization [facility] Address [address] [place] [address] Care Team Providers Name Role Phone Josh Smith MD Primary Care Provider Reason for Visit Reason Comments Abnormal Lab Encounter Details Date Type Department Care Team Description 09/06/[address] [facility] Women's Misty Mcnulty PA-C Abnormal Lab Healthcare- [address] [facility], [facility] [address] [place] [address] [phone] Allergies No Known Allergiesdocumented as of this encounter (statuses as of 09/06/2019) Medications Medication Sig Dispensed Refills Start Date End Date Status ibuprofen 600 mg Take 1 tablet by 30 tablet 1 08/06/2019 Active tabletIndications: mouth every 6 Retained products of (six) hours as conception after needed for Pain miscarriage, S/P D&C (scale 1-3) or (status post dilation Pain (scale 4-6). and curettage) ferrous sulfate 325 mg Take 1 capsule by 60 capsule 3 08/06/2019 Active (65 mg iron) SR mouth 2 (two) capsuleIndications: times daily. Retained products of conception after miscarriage, S/P D&C (status post dilation and curettage) Ascorbic Acid (VITAMIN Take 1 TAB-CAP/M2 30 tablet 3 08/06/2019 Active C) 500 mg by mouth daily. ChewIndications: Retained products of conception after miscarriage, S/P D&C (status post dilation and curettage) foLIC acid 1 mg Take 1 tablet by 30 tablet 3 08/06/2019 Active tabletIndications: mouth daily. Retained products of conception after miscarriage, S/P D&C (status post dilation and curettage) norgestimate-ethinyl Take 1 tablet by 4 Package 3 09/06/2019 Active estradiol 0.25-35 mouth daily. mg-mcg per tabletIndications: Encounter for BCP ( control pills) initial prescription ibuprofen 600 mg Take 1 tablet by 30 tablet 1 09/06/2019 Active tabletIndications: mouth every 6 Dysmenorrhea (six) hours as needed for Pain (scale 1-3) or Pain (scale 4-6). documented as of this encounter (statuses as [...] Visit Obstetrics & Gynecology Nohelia Guerra MD [address] [place] [address] [place] [address] [phone] Name Type Priority Associated Diagnoses Order Schedule TOTAL BETA HCG ASSAY LAB Routine Retained products of Expected: 09/13/2019, conception after Expires: 09/06/2020 miscarriage Health Maintenance Due Date Last Done Comments [...] filedocumented in this encounter Visit Diagnoses Diagnosis Retained products of conception after miscarriage - Primary documented in this encounter Insurance Payer Benefit Plan / Group Subscriber ID Effective Dates Phone Address Type CORINE POOL II [id number] 2019-Present HMO/PPO/POS documented as of this encounter
--- OUTSIDE RECORDS SUMMARY | 2019-09-23 19:17 | XMS REPORT | Summary of Care ---
:1985 Author Organization [facility] Address [address] [place] [address] Care Team Providers Name Role Phone Josh Smith MD Primary Care Provider Encounter Details Date Type Department Care Team Description 09/06/2019 Orders Only [facility] Doctor Unassigned, No [address] [facility] [place] [address] [address] [place] [address] Allergies No Known Allergiesdocumented as of this encounter (statuses as of 09/09/2019) Medications Medication Sig Dispensed Refills Start Date [...] as of this encounter (statuses as of 09/09/2019) Active Problems Problem Noted Date Encounter for BCP ( control pills) initial prescription 09/06/2019 Dysmenorrhea 09/06/2019 Postoperative anemia due to acute blood loss 08/07/2019 Intramural leiomyoma of uterus 08/07/2019 Retained products of conception after miscarriage 07/26/2019 Chronic pain of multiple joints 04/20/2018 Seasonal allergies documented as of this encounter (statuses as of 09/09/2019) Resolved Problems Problem Noted Date Resolved Date Anemia 08/06/2019 08/07/2019 13 weeks gestation of 07/07/2019 07/26/2019 Abdominal cramping affecting 07/07/2019 07/07/2019 Threatened , antepartum 07/07/2019 07/26/2019 Abnormal maternal glucose tolerance, antepartum 07/07/2019 08/23/2019 Iron deficiency anemia 04/20/2018 07/07/2019 documented as of this encounter (statuses as of 09/09/2019) Immunizations Name Administration Dates Next Due Influenza [...] Visit Obstetrics & Gynecology Nohelia Guerra MD [address] [place] [address] [address] [place], [place] [id number] Health Maintenance Due Date Last Done Comments VARICELLA VACCINES ( of - 1985 2-dose childhood series) DTaP,Tdap,and Td Vaccines ( - 11/28/1995 Tdap) PAP SMEAR 05/19/2022 05/19/2019 INFLUENZA VACCINE Completed 06/09/2019 PNEUMOCOCCAL 0-64 YEARS COMBINED Aged Out No longer eligible based on SERIES patient's age to complete this topic documented as of this encounter Procedures Procedure Name Priority Date/Time Associated Diagnosis Comments AGREEMENTS AUTHORIZATIONS Routine 09/06/2019 12:01 AM AND IRREVOCABLE ABA TUTOR ASSIGNMENTS (FORM 2000) documented in this encounter Results Not on filedocumented in this encounter Insurance Payer Benefit Plan / Group Subscriber ID Effective Dates Phone Address Type CORINE POOL II [id number] 2019-Present HMO/PPO/POS documented as of this encounter
--- OUTSIDE RECORDS SUMMARY | 2019-09-23 19:17 | XMS REPORT | Summary of Care ---
:1984 Author Organization [facility] Address [address] [place] [address] Care Team Providers Name Role Phone Josh Smith MD Primary Care Provider Reason for Visit Reason Comments POST-OP Follow-up Encounter Details Date Type Department Care Team Description 08/23/2019 Office Visit [facility] Women's GuerraNohelia MD Post-operative [address] (Primary Dx) [address] [place] [address] [address] [phone] Allergies No Known Allergiesdocumented as of this [...] Comments Blood Pressure 101/68 08/23/2019 10:11 AM KNOTTER HAND Pulse 85 08/23/2019 10:11 AM KNOTTER HAND Temperature 36.6 C (97.8 F) 08/23/2019 10:11 AM KNOTTER HAND Respiratory Rate 18 08/23/2019 10:11 AM KNOTTER HAND Oxygen Saturation - - Inhaled Oxygen Concentration - - Weight 65.8 kg (145 lb) 08/23/2019 10:11 AM KNOTTER HAND Height 157.5 cm (5' 2") 08/23/2019 10:11 AM KNOTTER HAND Body Mass Index 26.52 08/23/2019 10:11 AM KNOTTER HAND documented in this encounter Progress Notes Nohelia [...] N/A 08/06/2019 Surgeon: Nohelia Guerra MD; [place] [facility] [place] No Known Allergies Current Outpatient Medications on [...] file Gets together: Not on file Attends jainism service: Not on file Active member of [...] domestic or physical violence within the home. Confucianism Preference: Bahai BP: (101)/(68) Temp: [36.6 C (97.8 F)] [...] prior to trying for Nohelia Guerra MD #[id number] 08/23/2019 10:33 AM documented in this encounter Plan of Treatment Date Type Specialty Care Team Description 08/23/2019 Cold Storage Worker Visit Phlebotomy Nohelia Guerra MD [address] [facility] [address] [place], [place] [address] Post-operative Pob, Adc Lab Main state 09/06/2019 Routine Obstetrics & Nohelia Guerra MD Visit Gynecology [address] [facility] [address] [place], [place] [address] Name Type Priority Associated Diagnoses Order Schedule [...]
--- OUTSIDE RECORDS SUMMARY | 2019-09-23 19:18 | XMS REPORT | Summary of Care ---
:1985 Author Organization [facility] Address [address] [place] [address] Care Team Providers Name Role Phone Josh Smith MD Primary Care Provider Reason for Visit Reason Comments LAB WORK Auth/Cert Status Reason Specialty Diagnoses / Procedures Referred By Contact Referred To Contact Phlebotomy Diagnoses Retained products of conception after miscarriage Adc Pob Lab Draw Procedures hcg Professional Office Building [address] [place] [address] , [address] [place] [address] Encounter Details Date Type Department Care Team Description 08/30/2019 Medical Office Technology Instructor Visit [facility] Nohelia Guerra MD [address] [place] [address] [address] [place] [address] Retained products Professional Office Pob, Adc Lab Main of conception after Building Phlebotomy miscarriage Lab [facility] Building [address] [place] [address] , [address] [place] [address] Allergies No Known Allergiesdocumented as of this encounter (statuses as of 08/30/2019) Medications Medication Sig Dispensed Refills Start Date [...] as of this encounter (statuses as of 08/30/2019) Active Problems Problem Noted Date Postoperative anemia due to acute blood loss 08/07/2019 Intramural leiomyoma of uterus 08/07/2019 Retained products of conception after miscarriage 07/26/2019 Chronic pain of multiple joints 04/20/2018 Seasonal allergies documented as of this encounter (statuses as of 08/30/2019) Resolved Problems Problem Noted Date Resolved Date Anemia 08/06/2019 08/07/2019 13 weeks gestation of 07/07/2019 07/26/2019 Abdominal cramping affecting 07/07/2019 07/07/2019 Threatened , antepartum 07/07/2019 07/26/2019 Abnormal maternal glucose tolerance, antepartum 07/07/2019 08/23/2019 Iron deficiency anemia 04/20/2018 07/07/2019 documented as of this encounter (statuses as of 08/30/2019) Immunizations Name Administration Dates Next Due Influenza [...] & Guerra, Nohelia Amato MD Visit Gynecology [address] [place] [address] 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
--- OUTSIDE RECORDS SUMMARY | 2019-09-23 19:18 | XMS REPORT | Summary of Care ---
:1984 Author Organization [facility] Address [address] [place] [address] Care Team Providers Name Role Phone Josh Smith MD Primary Care Provider Reason for Visit Reason Comments Abnormal Lab Encounter Details Date Type Department Care Team Description 08/30/2019 Case Management [facility] Women's Misty Mcnulty PA-C Abnormal Lab Healthcare- [address] 146 [facility], [facility] [address] [place] [address] [phone] Allergies No Known Allergiesdocumented as of this [...] & Guerra, Nohelia Amato MD Visit Gynecology [address] [place] [address] [place] [address] [phone] Name Type Priority Associated Diagnoses Order Schedule TOTAL BETA HCG ASSAY LAB Routine Retained products of Expected: 08/30/2019, conception after Expires: 08/30/2020 miscarriage Health Maintenance Due Date Last Done [...] Dates Phone Address Type CORINE POOL II [id number] 2019-Present HMO/PPO/POS documented as of this encounter
--- OUTSIDE RECORDS SUMMARY | 2019-09-23 19:18 | XMS REPORT | Summary of Care ---
:[address] [facility] Address [address] [place] [address] Care Team Providers Name Role Phone Josh Smith MD Primary Care Provider Reason for Visit Reason Comments LAB Encounter Details Date Type Department Care Team Description 09/14/2019 Sack Sorter Visit [facility] Nohelia Guerra MD [address] [facility] [address] [place] [address] Retained products Professional Office 2, Adc Lab of conception after Building Phlebotomy miscarriage Lab Professional [facility] Building [address] [place] [address] , [address] [place] [address] Allergies No Known Allergiesdocumented as of this encounter (statuses as of 09/14/2019) Medications Medication Sig Dispensed Refills Start Date [...] as of this encounter (statuses as of 09/14/2019) Active Problems Problem Noted Date Encounter for BCP ( control pills) initial prescription 09/06/2019 Dysmenorrhea 09/06/2019 Postoperative anemia due to acute blood loss 08/07/2019 Intramural leiomyoma of uterus 08/07/2019 Retained products of conception after miscarriage 07/26/2019 Chronic pain of multiple joints 04/20/2018 Seasonal allergies documented as of this encounter (statuses as of 09/14/2019) Resolved Problems Problem Noted Date Resolved Date Anemia 08/06/2019 08/07/2019 13 weeks gestation of 07/07/2019 07/26/2019 Abdominal cramping affecting 07/07/2019 07/07/2019 Threatened , antepartum 07/07/2019 07/26/2019 Abnormal maternal glucose tolerance, antepartum 07/07/2019 08/23/2019 Iron deficiency anemia 04/20/2018 07/07/2019 documented as of this encounter (statuses as of 09/14/2019) Immunizations Name Administration Dates Next Due Influenza [...] Description 05/08/2020 Office Visit Obstetrics & Gynecology GuerraNohelia MD [address] [place] [address] [address] [place], [place] [phone] Health Maintenance Due Date Last Done Comments [...]
--- OUTSIDE RECORDS SUMMARY | 2019-09-23 19:18 | XMS REPORT | Summary of Care ---
:1984 Author Organization [facility] Address [address] [place] [address] Care Team Providers Name Role Phone Josh Smith MD Primary Care Provider Reason for Visit Reason Comments LAB Encounter Details Date Type Department Care Team Description 09/06/2019 Power Plant Superintendent Visit [facility] Nohelia Guerra MD 146 [facility] [address] [place] [address] Retained products Professional Office 2, Adc Lab of conception after Building Phlebotomy miscarriage Lab Professional [facility] Building [address] [place] [address] , [address] [place] [address] Allergies No Known Allergiesdocumented as [...] of 09/06/2019) Active Problems Problem Noted Date Postoperative anemia [...] filedocumented in this encounter Plan of Treatment Health Maintenance Due Date Last Done Comments [...]
--- OUTSIDE RECORDS SUMMARY | 2019-09-23 19:18 | XMS REPORT | Summary of Care ---
:1985 Author Organization [facility] Address [address] [place] [address] Care Team Providers Name Role Phone Josh Smith MD Primary Care Provider Reason for Visit Reason Comments LAB Encounter Details Date Type Department Care Team Description 08/23/2019 Case Management [facility] Women's Misty Mcnulty PA-C [facility] Healthcare- [address] 146 [facility], [facility] [address] [place] [address] [phone] Allergies No Known Allergiesdocumented as of this [...] & Guerra, Nohelia Amato MD Visit Gynecology [address] [place] [address] [place] [address] [phone] Name Type Priority Associated Diagnoses Order Schedule TOTAL BETA HCG ASSAY LAB Routine Retained products of Expected: 08/30/2019, conception after Expires: 08/23/2020 miscarriage Health Maintenance Due Date Last Done [...] Dates Phone Address Type CORINE POOL II [id number] 2019-Present HMO/PPO/POS documented as of this encounter
--- OUTSIDE RECORDS SUMMARY | 2019-09-23 19:19 | XMS REPORT | Summary of Care ---
:1985 Author Organization [facility] Address [address] [place] [address] Care Team Providers Name Role Phone Josh Smith MD Primary Care Provider Reason for Visit Reason Comments LAB Encounter Details Date Type Department Care Team Description 09/21/2019 Field Hockey Coach Visit [facility] Nohelia Guerra MD [address] [facility] [address] [place] [address] Post-operative Professional Office 2, [facility] Lab state [facility] Phlebotomy Lab Professional Office Building [address] [facility] , [address] [place] [address] Allergies No Known Allergiesdocumented as of this encounter (statuses as of 09/21/2019) Medications Medication Sig Dispensed Refills Start Date [...] as of this encounter (statuses as of 09/21/2019) Active Problems Problem Noted Date Encounter for BCP ( control pills) initial prescription 09/06/2019 Dysmenorrhea 09/06/2019 Postoperative anemia due to acute blood loss 08/07/2019 Intramural leiomyoma of uterus 08/07/2019 Retained products of conception after miscarriage 07/26/2019 Chronic pain of multiple joints 04/20/2018 Seasonal allergies documented as of this encounter (statuses as of 09/21/2019) Resolved Problems Problem Noted Date Resolved Date Anemia 08/06/2019 08/07/2019 13 weeks gestation of 07/07/2019 07/26/2019 Abdominal cramping affecting 07/07/2019 07/07/2019 Threatened , antepartum 07/07/2019 07/26/2019 Abnormal maternal glucose tolerance, antepartum 07/07/2019 08/23/2019 Iron deficiency anemia 04/20/2018 07/07/2019 documented as of this encounter (statuses as of 09/21/2019) Immunizations Name Administration Dates Next Due Influenza [...] Office Visit Obstetrics & Gynecology GuerraNohelia MD [address] [place] [address] [place] [address] [phone] Health Maintenance Due Date Last Done Comments [...]
--- OUTSIDE RECORDS SUMMARY | 2019-09-23 19:19 | XMS REPORT | Summary of Care ---
:1985 Author Organization [facility] - Health Address [address] [place] [address] Care Team Providers Name Role Phone Josh Smith MD Primary Care Provider Encounter Details Date Type Department Care Team Description 09/14/2019 Orders Only [facility] Doctor Unassigned, No [address] [facility] [place] [address] [address] [place] [address] Allergies No Known Allergiesdocumented as of this encounter (statuses as of 09/16/2019) Medications Medication Sig Dispensed Refills Start Date [...] as of this encounter (statuses as of 09/16/2019) Active Problems Problem Noted Date Encounter for BCP ( control pills) initial prescription 09/06/2019 Dysmenorrhea 09/06/2019 Postoperative anemia due to acute blood loss 08/07/2019 Intramural leiomyoma of uterus 08/07/2019 Retained products of conception after miscarriage 07/26/2019 Chronic pain of multiple joints 04/20/2018 Seasonal allergies documented as of this encounter (statuses as of 09/16/2019) Resolved Problems Problem Noted Date Resolved Date Anemia 08/06/2019 08/07/2019 13 weeks gestation of 07/07/2019 07/26/2019 Abdominal cramping affecting 07/07/2019 07/07/2019 Threatened , antepartum 07/07/2019 07/26/2019 Abnormal maternal glucose tolerance, antepartum 07/07/2019 08/23/2019 Iron deficiency anemia 04/20/2018 07/07/2019 documented as of this encounter (statuses as of 09/16/2019) Immunizations Name Administration Dates Next Due Influenza [...] Visit Obstetrics & Gynecology Nohelia Guerra MD [address] [place] [address] [address] [place], [place] [id number] Health Maintenance Due Date Last Done Comments [...] Date/Time Associated Diagnosis Comments AGREEMENTS AUTHORIZATIONS Routine 09/14/2019 12:01 AM AND IRREVOCABLE FICTION AND NONFICTION AUTHOR ASSIGNMENTS (FORM 2000) documented in this encounter Results Not on filedocumented in this encounter Insurance Payer Benefit Plan / Group Subscriber ID Effective Dates Phone Address Type CORINE POOL II [id number] 2019-Present HMO/PPO/POS documented as of this encounter
--- OUTSIDE RECORDS SUMMARY | 2019-09-23 19:19 | XMS REPORT | Summary of Care ---
:1985 Author Organization [facility] - [facility] Address [address] [place] [address] Care Team Providers Name Role Phone Josh Smith MD Primary Care Provider Reason for Visit Reason Comments LAB Encounter Details Date Type Department Care Team Description 09/21/2019 Case Management [facility] Women's Misty Mcnulty PA-C [facility] Healthcare- [address] [facility], [facility] [address] [place] [id number] [phone] Allergies No Known Allergiesdocumented as of this [...] Visit Obstetrics & Gynecology Nohelia Guerra MD [address] [place] [address] [place] [address] [phone] Name Type Priority Associated Diagnoses Order Schedule HCG, QUANTITATIVE, LAB Routine Retained products of Expected: 09/28/2019, conception after Expires: 09/21/2020 miscarriage Health Maintenance Due Date Last Done [...] Dates Phone Address Type CORINE POOL II [id number] 2019-Present HMO/PPO/POS documented as of this encounter
--- OUTSIDE RECORDS SUMMARY | 2019-09-23 19:19 | XMS REPORT | Summary of Care ---
:1985 Author Organization [facility] - [facility] Address [address] [place] [address] Care Team Providers Name Role Phone Josh Smith MD Primary Care Provider Reason for Visit Reason Comments LAB Encounter Details Date Type Department Care Team Description 09/14/2019 Case Management [facility] Women's Misty Mcnulty PA-C [facility] Healthcare- [address] [facility], [facility] [address] [place] [address] [phone] Allergies No Known Allergiesdocumented as of this [...] Visit Obstetrics & Gynecology Nohelia Guerra MD [address] [place] [address] [place] [address] [phone] Name Type Priority Associated Diagnoses Order Schedule HCG, QUANTITATIVE, LAB Routine Retained products of Expected: 09/21/2019, conception after Expires: 09/14/2020 miscarriage Health Maintenance Due Date Last Done [...] Subscriber ID Effective Dates Phone Address Type CORIEN POOL II [id number] 2019-Present HMO/PPO/POS documented as of this encounter
[2019-09-23 20:10] LABS: Absolute Lymphocytes (CBC) 1.6 K/uL (0.7-4.9); Basophils % 0.5 % (0-1.3); Hematocrit 19.6 % (36.0-45.0); Lymphocytes % 18.8 % (15.3-44.8); MPV 8.1 fL (7.6-11.3); RBC Red Blood Cell Count 2.54 M/uL (3.86-4.86)
[2019-09-23 20:24] LABS: Potassium 3.6 mmol/L (3.5-5.1)
[2019-09-23] MEDS ORDERED: DIPHENHYDRAMINE 50 MG/ML VIAL ONE (21:26)
[2019-09-23] MEDS ORDERED: ACETAMINOPHEN 325 MG TABLET ONE (21:26)
--- NOTE | 2019-09-23 21:52 | ER ---
Nurse's Notes [facility] Name: Lubna Joe Age: 33 yrs Sex: Female : 1985 Arrival Date: 09/23/2019 Time: 19:16 Bed 13 Private MD: Diagnosis: Iron deficiency anemia secondary to blood loss (chronic) Presentation: 09/23 19:21 Chief complaint: Patient states: I had a DNC for a miscarriage, havent been feeling sg great just very short of breath and fatigued. pt states she had labs drawn and a low hgb of 6.something was resulted my doctor told me to come to the ER for a possible transfusion, reports having had a transfusion in the past for a similar event. Coronavirus screen: The patient has NOT traveled to [place] in the past 14 days. The patient has NOT had contact with known and/or suspected case of Coronavirus. Ebola Screen: Patient negative for fever greater than or equal to 101.5 degrees Fahrenheit, and additional compatible Ebola Virus Disease symptoms Patient denies exposure to infectious person. Patient denies travel to an Ebola-affected area in the 21 days before illness onset. No symptoms or risks identified at this time. Risk Assessment: Do you want to hurt yourself or someone else? Patient reports no desire to harm self or others. 19:21 Method Of Arrival: Ambulatory sg 19:21 Acuity: LEONEL 3 sg 20:20 Initial Sepsis Screen: Does the patient meet any 2 criteria? RR > 20 per min. Does the ao patient have a suspected source of infection? No. Patient's initial sepsis screen is negative. 20:23 Onset of symptoms is unknown. ao Triage Assessment: 20:21 Headache History: Denies prior headaches. General: Appears in no apparent distress. ao comfortable. Pain: Pain currently is 0 out of 10 on a pain scale. Pain began 2-3 days ago. Also complains of no other associated symptoms. 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 - Social history:: Smoking status: Patient denies any tobacco usage or history of. Screenin:19 Abuse screen: Denies threats or abuse. Denies injuries from another. Nutritional ao screening: No deficits noted. Tuberculosis screening: No symptoms or risk factors identified. Fall Risk None identified. Assessment: 19:51 General: Appears in no apparent distress. comfortable, Behavior is calm, cooperative, ao appropriate for age. Pain: Denies pain. Neuro: Level of Consciousness is awake, alert, obeys commands, Oriented to person, place, time, situation, Appropriate for age Moves all extremities. Full function. Cardiovascular: No deficits noted. Respiratory: No deficits noted. Airway is patent. GI: No signs and/or symptoms were reported involving the gastrointestinal system. : No signs and/or symptoms were reported regarding the genitourinary system. EENT: No signs and/or symptoms were reported regarding the EENT system. Derm: Skin is intact, Skin is pink, warm \T\ dry. Musculoskeletal: Circulation, motion, and sensation intact. Range of motion: intact in all extremities, Weakness. 20:18 Reassessment: Critical lab given to Kartik H\T\H 6.1 -19.6. ao 20:58 Reassessment: Patient appears in no apparent distress at this time. Patient and/or ao family updated on plan of care and expected duration. Pain level reassessed. 22:20 Reassessment: Patient appears in no apparent distress at this time. Holding discharge ao until patient get two units. Currently started the first. CRISTOBAL Verdugo aware and okay to hold discharge. 23:45 Reassessment: Unit complete. Patient to get another unit. Hold DC until blood is ao complete. 09/24 00:00 Reassessment: Started the second unit. ao 01:43 Reassessment: Transfusion completed. Patient to be discharge as ordered by Kartik Carrillo. ao By Kartik Carrillo patient don't need a H\T\H recheck. Patient is to follow up with PCP. 01:52 Reassessment: Dc instructions given to patient. Patient agree with POC and to follow up ao with PCP. Vital Signs: 09/23 20:20 BP 101 / 65; Pulse 100; Resp 16; Temp 98.6(O); Pulse Ox 100% on R/A; Weight 61.23 kg ao (R); Height 5 ft. 4 in. (162.56 cm); Pain 0/10; 20:59 BP 120 / 73; Pulse 92; Resp 18; Pulse Ox 100% ; ao 22:00 BP 97 / 60; Pulse 89; Resp 18; Temp 99.4; Pulse Ox 100% ; Pain 0/10; ao 23:00 BP 97 / 72; Pulse 86; Resp 18; Temp 98.9(TE); Pulse Ox 100% ; Pain 0/10; ao 09/24 00:00 BP 106 / 70; Pulse 82; Resp 18; Temp 98.0(TE); Pulse Ox 100% ; Pain 0/10; ao 01:00 BP 96 / 64; Pulse 80; Resp 18; Temp 99.0; Pulse Ox 100% ; Pain 0/10; ao 01:37 BP 99 / 70; Pulse 73; Resp 18; Temp 98.9; Pulse Ox 100% ; Pain 0/10; ao 09/23 20:20 Body Mass Index 23.17 (61.23 kg, 162.56 cm) ao ED Course: 09/23 19:16 Patient arrived in ED. ds1 19:22 Triage completed. sg 19:22 Arm band placed on. sg 19:34 Kartik Carrillo PA is PHCP. jr8 19:34 Nuno Guerra MD is Attending Physician. jr8 19:36 Manuel Yeboah, JAZMINE is Primary Nurse. ao 19:51 Inserted saline lock: 20 gauge in right antecubital area, using aseptic technique. ao Blood collected. 20:22 Patient has correct armband on for positive identification. Pulse ox on. NIBP on. ao 09/24 01:50 No provider procedures requiring assistance completed. IV discontinued, intact, ao bleeding controlled, No redness/swelling at site. Pressure dressing applied. Administered Medications: 09/23 21:43 Drug: Benadryl 12.5 mg Route: IVP; Site: right antecubital; ao 09/24 01:52 Follow up: Response: No adverse reaction ao 09/23 21:44 Drug: Tylenol 650 mg Route: PO; ao 09/24 01:52 Follow up: Response: No adverse reaction ao Outcome: 09/23 21:51 Discharge ordered by . jr8 09/24 01:51 Discharged to home ambulatory. ao Condition: stable Discharge instructions given to patient, Instructed on discharge instructions, follow up and referral plans. Demonstrated understanding of instructions, follow-up care, medications, Prescriptions given X 1. 01:53 Patient left the ED. ao Signatures: Emery Graham, RN RN Sangita Segundo ds1 Kartik Carrillo PA PA jr8 Manuel Yeboah RN RN ao Corrections: (The following items were deleted from the chart) 02:03 00:00 BP 96 / 64; Pulse 80bpm; Resp 18bpm; Pulse Ox 100%; Temp 99.0F; Pain 0/10; ao ao
--- NOTE | 2019-09-23 21:52 | EDPHYS ---
Physician Documentation [facility] Name: Lubna Joe Age: 33 yrs Sex: Female : 1985 Arrival Date: 09/23/2019 Time: 19:16 Bed 13 Private MD: ED Physician Nuno Guerra HPI: 09/23 20:00 This 33 yrs old Female presents to ER via Ambulatory with complaints of jr8 irregular labs, Headache, Ear Pain. 20:00 Patient stated that she has had ringing in one ear along with headaches, dizziness, jr8 fatigue, and shortness of breath for past few days. History of recent D\T\C about a month ago and has uterine fibroid that causes her to have heavy menstrual cycles. Stated that she saw PCP for this and had labs completed. Was called today with results showing Hemoglobin of 6.0. Told to go to ED for recheck and if needed a transfusion . Severity of symptoms: At their worst the symptoms were moderate in the emergency department the symptoms are unchanged. The patient has experienced a previous episode. The patient has been recently seen by a physician: the patient's primary care provider. SVP OPERATIONS: 09/24 01:51 LMP N/A - ao Historical: - Allergies: 09/23 19:23 No Known Allergies; sg - PMHx: 19:23 Miscarriage on 07/12; uterine fibroids; sg - PSHx: 19:23 None; sg - Immunization history:: Adult Immunizations up to date. - Social history:: Smoking status: Patient denies any tobacco usage or history of. ROS: 20:00 Eyes: Negative for injury, pain, redness, and discharge, Neck: Negative for injury, jr8 pain, and swelling, Cardiovascular: Negative for chest pain, palpitations, and edema, Abdomen/GI: Negative for abdominal pain, nausea, vomiting, diarrhea, and constipation, Back: Negative for injury and pain, MS/Extremity: Negative for injury and deformity, Skin: Negative for injury, rash, and discoloration, Neuro: Negative for headache, weakness, numbness, tingling, and seizure. 20:00 ENT: Negative for injury, pain, and discharge. 20:00 Constitutional: Positive for fatigue, malaise. 20:00 Respiratory: Positive for dyspnea on exertion, shortness of breath. Exam: 20:00 Eyes: Pupils equal round and reactive to light, extra-ocular motions intact. Lids and jr8 lashes normal. Conjunctiva and sclera are non-icteric and not injected. Cornea within normal limits. Periorbital areas with no swelling, redness, or edema. ENT: Nares patent. No nasal discharge, no septal abnormalities noted. Tympanic membranes are normal and external auditory canals are clear. Oropharynx with no redness, swelling, or masses, exudates, or evidence of obstruction, uvula midline. Mucous membranes moist. Neck: Trachea midline, no thyromegaly or masses palpated, and no cervical lymphadenopathy. Supple, full range of motion without nuchal rigidity, or vertebral point tenderness. No Meningismus. Cardiovascular: Regular rate and rhythm with a normal S1 and S2. No gallops, murmurs, or rubs. Normal PMI, no JVD. No pulse deficits. Respiratory: Lungs have equal breath sounds bilaterally, clear to auscultation and percussion. No rales, rhonchi or wheezes noted. No increased work of breathing, no retractions or nasal flaring. Abdomen/GI: Soft, non-tender, with normal bowel sounds. No guarding or rebound. No evidence of tenderness throughout. Mild gravid abdomen with enlarged palpated uterus present Back: No spinal tenderness. No costovertebral tenderness. Full range of motion. Skin: Warm, dry with normal turgor. Mild pallor present with no rashes, no lesions, and no evidence of cellulitis. MS/ Extremity: Pulses equal, no cyanosis. Neurovascular intact. Full, normal range of motion. Neuro: Awake and alert, GCS 15, oriented to person, place, time, and situation. Cranial nerves II-XII grossly intact. Motor strength 5/5 in all extremities. Sensory grossly intact. Cerebellar exam normal. Normal gait. Vital Signs: 20:20 BP 101 / 65; Pulse 100; Resp 16; Temp 98.6(O); Pulse Ox 100% on R/A; Weight 61.23 kg ao (R); Height 5 ft. 4 in. (162.56 cm); Pain 0/10; 20:59 BP 120 / 73; Pulse 92; Resp 18; Pulse Ox 100% ; ao 22:00 BP 97 / 60; Pulse 89; Resp 18; Temp 99.4; Pulse Ox 100% ; Pain 0/10; ao 23:00 BP 97 / 72; Pulse 86; Resp 18; Temp 98.9(TE); Pulse Ox 100% ; Pain 0/10; ao 09/24 00:00 BP 106 / 70; Pulse 82; Resp 18; Temp 98.0(TE); Pulse Ox 100% ; Pain 0/10; ao 01:00 BP 96 / 64; Pulse 80; Resp 18; Temp 99.0; Pulse Ox 100% ; Pain 0/10; ao 01:37 BP 99 / 70; Pulse 73; Resp 18; Temp 98.9; Pulse Ox 100% ; Pain 0/10; ao 09/23 20:20 Body Mass Index 23.17 (61.23 kg, 162.56 cm) ao MDM: 09/23 19:34 Patient medically screened. jr8 20:51 Data reviewed: vital signs, nurses notes, lab test result(s). Data interpreted: Pulse jr8 oximetry: on room air is 100 %. Interpretation: normal. Counseling: I had a detailed discussion with the patient and/or guardian regarding: the historical points, exam findings, and any diagnostic results supporting the discharge/admit diagnosis, lab results, the need for outpatient follow up, an OB/Gyne specialist, to return to the emergency department if symptoms worsen or persist or if there are any questions or concerns that arise at home. ED course: Patients H/H continue to be low. Will transfuse two units and then can go home to f/u with OB. 09/23 19:34 Order name: CBC with Diff; Complete Time: 20:20 jr8 09/23 19:34 Order name: Basic Metabolic Panel; Complete Time: 20:35 jr8 09/23 19:34 Order name: T\T\S jr8 09/23 20:34 Order name: Packed RBC Leukored EDMS 09/23 19:34 Order name: IV; Complete Time: 19:51 jr8 Administered Medications: 21:43 Drug: Benadryl 12.5 mg Route: IVP; Site: right antecubital; ao 09/24 01:52 Follow up: Response: No adverse reaction ao 09/23 21:44 Drug: Tylenol 650 mg Route: PO; ao 09/24 01:52 Follow up: Response: No adverse reaction ao Disposition: 01:56 Co-signature as Attending Physician, Nuno Guerra MD. pkl Disposition: 09/23/19 21:51 Discharged to Home. Impression: Iron deficiency anemia secondary to blood loss (chronic). - Condition is Stable. - Discharge Instructions: Iron Deficiency Anemia, Adult. - Prescriptions for Ferrous Sulfate 325 mg (65 mg Iron) Oral Tablet - take 1 tablet by ORAL route every 8 hours; 90 tablet. - Medication Reconciliation Form, Thank You Letter, Antibiotic Education, Prescription Opioid Use form. - Follow up: Private Physician; When: 2 - 3 days; Reason: Recheck today's complaints, Continuance of care, Re-evaluation by your physician. - Problem is new. - Symptoms have improved. Signatures: Dispatcher [employer] EDMS Emery Graham RN RN Nuno Toro MD MD pkKartik Villeda PA PA jr8 Manuel Yeboah RN RN ao Corrections: (The following items were deleted from the chart) 09/23 20:02 20:00 The patient has not recently seen a physician, lj jr8 09/24 01:53 09/23 21:51 09/23/2019 21:51 Discharged to Home. Impression: Iron deficiency anemia ao secondary to blood loss (chronic). Condition is Stable. Discharge Instructions: Iron Deficiency Anemia, Adult. Prescriptions for Ferrous Sulfate 325 mg (65 mg Iron) Oral Tablet - take 1 tablet by ORAL route every 8 hours; 90 tablet. and Forms are Medication Reconciliation Form, Thank You Letter, Antibiotic Education, Prescription Opioid Use. Follow up: Private Physician; When: 2 - 3 days; Reason: Recheck today's complaints, Continuance of care, Re-evaluation by your physician. Problem is new. Symptoms have improved. jr8
[2019-09-24] MEDS ORDERED: NA CHLORIDE 0.9% 0 ML IV ONE
[2019-09-24 02:30] VITALS: TEMP 98.6; O2SAT 100
[2019-09-24 02:31] VITALS: BP 120/73
== END 2019-09-24 01:53 | disposition home or self-care (01) ==
LOC: ER 19:13
PROC: 30233N1 Transfusion of Nonautologous Red Blood Cells into Peripheral Vein, Percutaneous Approach (ICD-10-PCS; principal; 2019-09-23)
DX: D50.0 Iron deficiency anemia secondary to blood loss (chronic) (principal)
CPT/HCPCS: 85025; 80048; 36415; 86900; 86850; 86901; 96374; 99284; 36430; J1200; P9016 ×2; P9021

== ENCOUNTER 2019-11-30 09:02 | Emergency (ER) | payer OTHER ==
--- OUTSIDE RECORDS SUMMARY | 2019-11-30 09:04 | XMS REPORT ---
:1985 Author Organization [facility] t Address [address] [place] [address] Dr. Harris [address] [place] [address] Care Team Providers Name Role Phone Unavailable Unavailable Unavailable Problems This patient has no known problems. Allergies, Adverse Reactions, Alerts This patient has no known allergies or adverse reactions. Medications This patient has no known medications.
--- OUTSIDE RECORDS SUMMARY | 2019-11-30 09:10 | XMS REPORT | Summary of Care ---
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 0.3 % [facility] LABOR[facility] GRAN MAT 7.12 (H) 1.88 - 7.09 [facility] x10^3(ANC) 10*3/uL [facility] LABORATORY IMM GRAN x10^3 0.05 0.00 - 0.06 [facility] 10*3/uL [facility] LABORATORY LYMPH x10^3 2.08 1.32 - 3.29 [facility] 10*3/uL [facility] LABORATORY MONO x10^3 0.80 0.33 - 0.92 [facility] 10*3/uL [facility] LAB[facility] EOS x10^3 0.04 0.03 - 0.39 [facility] 10*3/uL [facility] LAB[facility] BASO x10^3 0.03 0.01 - 0.07 [facility] 10*3/uL [facility] PLT ESTIMATE Increased (A) Normal [facility] LABOR[facility]ORY Specimen Blood - ARM, LEFT Performing Organization Address [facility] Phone Number [facility] CLIA: [id number], [address] [place] [address] FREE T4 (09/23/2019 2:55 PM AUTOMATIC BUFFER) Pathologist Sig nature FREE T4 1.21 0.78 - 2.20 ng/dL [facility] LABORATORY Specimen Blood - ARM, LEFT Performing Organization Address [facility] Centercode Phone Number [facility] CLIA: [id number], [address] THYROID STIMULATING HORMONE (09/23/2019 2:55 PM AUTOMATIC BUFFER) Pathologist Sig nature TSH 1.78 0.45 - 4.70 mIU/L [facility] LABORATORY Specimen Blood - ARM, LEFT Performing Organization Address City/[facility]/Zipcode Phone Number [facility] CLIA: [id number], [address] [place], [place] [address] ANTI-NUCLEAR ANTIBODY SCREEN (09/23/2019 2:55 PM AUTOMATIC BUFFER) Pathologist Sig nature ASIM Negative Negative [facility] Specimen Blood - ARM, LEFT Narrative Performed At Negative - No Anti-Nuclear Antibodies de tected by IFA. [facility] Positive - ASIM IFA screen performed with a 1:80 diluti on in adults and a 1:40 dilution in pediatrics. Any ASIM "Pos itive" will have titer performed and reported s eparately. Negative - No Anti-Nuclear Antibodies de tected by IFA. Positive - ASIM IFA screen performed with a 1:80 diluti on in adults and a 1:40 dilution in pediatrics. Any ASIM "Pos itive" will have titer performed and reported separately. Performing Organization Address City/[facility] Centercode Phone Number [facility] CLIA: [id number], [address] [place], [place] [address] [facility] RETICULOCYTES AUTOMATED (09/23/2019 2:55 PM AUTOMATIC BUFFER) Pathologist Sig formerly [facility] RETIC Count 2.56 (H) 0.51 - 1.90 % [facility] LABORATORY RETIC Absolute Count 0.0666 0.0230 - 0.0950 [facility] 10*6/L HOSPITAL LABORATORY IRF % 10.40 2.10 - 12.60 % [facility] LAB[facility] RETIC-HE 16.1 (L) 28.1 - 35.8 pg [facility] LAB[facility] Specimen Blood - ARM, LEFT Performing Organization Address City/[facility]/Zipcode Phone Number [facility] CLIA: [id number], [address] [place], [place] [address] FERRITIN SERUM (09/23/2019 2:55 PM AUTOMATIC BUFFER) Pathologist Sig [facility] FERRITIN 5.6 (L) 6.0 - 137.0 ng/mL [facility] LABORATORY Specimen Blood - ARM, LEFT Narrative Performed At Biotin has been reported to cause a negative [facility] LAB[facility] bias, interpret results relative to patient's use of biotin. Performing Organization Address City/[facility] Cent[facility]ode Phone Number [facility] CLIA: [id number], [address] [place], [place] [address] IRON PANEL (09/23/2019 2:55 PM AUTOMATIC BUFFER) Pathologist Sig nature IRON 16 (L) 50 - 160 ug/dL [facility] TIBC 379 250 - 410 ug/dL [facility] % FE SAT 4 (L) 20 - 50 % [facility] Specimen Blood - ARM, LEFT Performing Organization Address [facility] Centercony Phone Number [facility] CLIA: [id number], [address] [place], [place] [address] FOLATE (09/23/2019 2:55 PM AUTOMATIC BUFFER) Pathologist [facility] [place] [place] [facility] [employer] FOLATE SER >20.0 (H) 3.0 - 20.0 ng/mL [facility] Specimen Blood - ARM, LEFT Performing Organization Address [facility] Phone Number [facility] CLIA: [id number], [address] [place] [address] [address] [facility] VITAMIN B12, LEVEL (09/23/2019 2:55 PM AUTOMATIC BUFFER) Pathologist [facility] [place] [place] [facility] [employer] VIT B12 841 240 - 930 pg/mL [facility] Specimen Blood - ARM, LEFT Narrative Performed At Biotin has been reported to cause a positive bias, int erpret [facility] results relative to patient's use of biotin. Performing Organization Address [facility] Phone Number [facility] CLIA: [id number], [address] [place] [address] [address] [facility] COMP. METABOLIC PANEL ([id number]) (09/23/2019 2:55 PM AUTOMATIC BUFFER) Pathologist Sig [facility] [employer] NA 139 135 - 145 [facility] mmol/L [facility] K 4.3 3.5 - 5.0 [facility] mmol/L [facility] CL 101 98 - 108 mmol/L [facility] CO2 TOTAL 27 23 - 31 mmol/L [facility] AGAP 11 2 - 16 [facility] BUN 8 7 - 23 mg/dL [facility] GLUCOSE 102 70 - 110 mg/dL [facility] CREATININE 0.54 0.50 - 1.04 [facility] mg/dL [facility] TOTAL BILI 0.2 0.1 - 1.1 mg/dL [facility] CALCIUM 9.2 8.6 - 10.6 [facility] mg/dL [facility] T PROTEIN 7.4 6.3 - 8.2 g/dL [facility] ALBUMIN 4.4 3.5 - 5.0 g/dL [facility] ALK PHOS 108 34 - 122 U/L [facility] ALTv 47 (H) 5 - 35 U/L [facility] AST(SGOT) 27 13 - 40 U/L [facility] eGFR Calculation 129.2 mL/min/1.73m2 [facility] (Non-) [facility] LABORATOR Y eGFR Calculation 156.6 mL/min/1.73m2 [facility] () [facility] Specimen Blood - ARM, LEFT Narrative Performed At [facility] of Glomerular Filtration Rate (GFR) [facility] LAB[facility] and Staging of Kidney Disease* + + +- + | GFR (mL/min/1.73 m2) | With Kidney Damage | Without Kidney Damage + + +- + | >90 | Stage one | Normal + + +- + | 60-89 | Stage two | Decreased GFR + + +- + | 30-59 | Stage three | Stage three + + +- + | 15-29 | Stage four | Stage four + + +- + | <15 (or dialysis) | Stage five | Stage five + + +- + *Each stage assumes the associated GFR level has been in effect for at least three months. Stages 1 to 5, with or without kidney disease, indicate chronic kidney disease. Notes: Determination of stages one and two (with eGFR >59mL/min/1.73 m2) requires estimation of kidney damage for at least three months as defined by structural or functional abnormalities of the kidney, manifested by either: Pathological abnormalities or Markers of kidney damage (including abnormalities in the composition of the blood or urine or abnormalities in imaging tests). Performing Organization Address City/State/Zipcode Phone Number [facility] CLIA: [id number], [address] documented in this encounter Visit Diagnoses Diagnosis New onset of headaches - Primary Headache Other fatigue Right-sided tinnitus Unspecified tinnitus Pressure in head Headache Miscarriage Unspecified spontaneous without mention of complication Uterine leiomyoma, unspecified location documented in this encounter documented as of this encounter
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
--- OUTSIDE RECORDS SUMMARY | 2019-11-30 09:12 | XMS REPORT | Summary of Care ---
:1985 Author Organization [facility] Address [address] [place] [address] Care Team Providers Name Role Phone Josh Smith MD Primary Care Provider Reason for Visit Reason Comments LAB Encounter Details Date Type Department Care Team Description 09/28/2019 Case Management [facility] Hannah Mcnulty PA-C [facility]- [address] [facility], [facility] [address] [place] [address] [phone] Allergies No Known Allergiesdocumented as of this encounter (statuses as of 09/28/2019) Medications Medication Sig Dispensed Refills Start Date End Date Status ferrous sulfate 325 mg Take 1 capsule 60 capsule 3 08/06/2019 Active (65 mg iron) SR by mouth 2 (two) capsuleIndications: times daily. Retained [...] Active tablet montelukast 10 mg TAKE 1 TABLET BY 0 07/30/2019 Active tablet MOUTH ONCE DAILY IN THE EVENING documented as of this encounter (statuses as of 09/28/2019) Active Problems Problem Noted Date New onset of headaches 09/26/2019 Encounter for BCP ( control pills) initial prescr iption 09/06/2019 Dysmenorrhea 09/06/2019 Postoperative anemia due to acute blood loss 0 Intramural leiomyoma of uterus 08/07/2019 Retained products of conception after miscarriage 06/29 Chronic pain of multiple joints 04/20/2018 Seasonal allergies History of blood transfusion Overview: 09/23/2019 documented as of this encounter (statuses as of 09/28/2019) Resolved Problems Problem Noted Date Resolved Date Anemia 08/06/2019 08/07/2019 13 weeks gestation of 07/07/2019 07/26/20 19 Abdominal cramping affecting 07/07/2019 1 09/07/2018 Threatened , antepartum 07/07/2019 07/26/20 19 Abnormal maternal glucose tolerance, antepartum 07/07/2019 08/23/2019 Iron deficiency anemia 04/20/2018 07/07/2019 documented as of this encounter (statuses as of 09/28/2019) Immunizations Name Administration Dates Next Due Influenza [...] Treatment Date Type Specialty Care Team Description 09/28/2019 Office Visit Family Medicine Estela Smith MD [address] [phone] 05/08/2020 Office Visit Obstetrics & Gynecology Caren Guerra MD [address] [place] [address] [place] [phone] Name Type Priority Associated Diagnoses Order S chedule HCG, QUANTITATIVE, LAB Routine Retained products of E xpected: 10/05/2019, conception after Expires: miscarriage Health Maintenance Due Date Last Done [...] Diagnoses Diagnosis Retained products of conception after mi scarriage - Primary documented in this encounter Insurance Payer Benefit Plan / Group Subscriber ID Effective Dates Phone Address Type CORINE POOL II [id number] 2019-Present H [place]/PPO/POS documented as of this encounter
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
--- OUTSIDE RECORDS SUMMARY | 2019-11-30 09:12 | XMS REPORT | Summary of Care ---
:1985 Author Organization [facility] Address [address] [place] [address] Care Team Providers Name Role Phone Josh Smith MD Primary Care Provider Reason for Visit Reason Comments LAB Encounter Details Date Type Department Care Team Description 09/28/2019 Railroad Dining Car Stewardess Visit [facility] Nohelia Guerra MD [address] [place] [address] [address] [place] [address] Retained products Professional Office 2, Adc Lab of conception after Building Phlebotomy miscarri age Lab Professional Office Building [address] [facility] , [address] [place] [address] Allergies No Known Allergiesdocumented as [...] Office Visit Family Medicine Estela Smith MD [address] [place] [phone] 05/08/2020 Office Visit Obstetrics & Gynecology Caren Guerra MD [address] [place] [address] [address] Health Maintenance Due Date Last Done Comments [...] Retained products of conception after mi scarriage documented in this encounter documented as of this encounter
--- OUTSIDE RECORDS SUMMARY | 2019-11-30 09:13 | XMS REPORT | Summary of Care ---
:1985 Author Organization [facility] - [facility] Address [address] [place] [address] Care Team Providers Name Role Phone Josh Smith MD Primary Care Provider Encounter Details Date Type Department Care Team Description 09/28/2019 Orders Only [facility] Doctor Unassigned, No [facility] [place] [phone] [place] [address] Allergies No Known Allergiesdocumented as of this encounter (statuses as of 10/05/2019) Medications Medication Sig Dispensed Refills Start Date End Date Status Ascorbic Acid (VITAMIN Take 1 30 tablet [...] tablet MOUTH ONCE DAILY IN THE EVENING ferrous sulfate 325 mg Take 1 capsule 60 capsule 3 09/28/2019 Active (65 mg iron) SR capsule by mouth 3 (three) times daily. documented as of this encounter (statuses as of 10/05/2019) Active Problems Problem Noted Date New onset [...] as of this encounter (statuses as of 10/05/2019) Resolved Problems Problem Noted Date Resolved Date Anemia 08/06/2019 08/07/2019 13 weeks gestation of 07/07/2019 07/26/20 19 Abdominal cramping affecting 07/07/2019 1 09/07/2018 Threatened , antepartum 07/07/2019 07/26/20 19 Abnormal maternal glucose tolerance, antepartum 07/07/2019 08/23/2019 Iron deficiency anemia 04/20/2018 07/07/2019 documented as of this encounter (statuses as of 10/05/2019) Immunizations Name Administration Dates Next Due Influenza [...] Visit Obstetrics & Gynecology Caren Guerra MD [address] [place] [address] [place] [id number] 15 [phone] Health Maintenance Due Date Last Done Comments VARICELLA VACCINES ( of - 1986 2-dose childhood series) DTaP,Tdap,and Td Vaccines ( - 11/28/1995 Tdap) PAP SMEAR 05/19/2022 05/19/2019 INFLUENZA VACCINE Completed 06/09/2019 PNEUMOCOCCAL 0-64 YEARS COMBINED Aged Out No longer eligible based on SERIES patient's age to complete this topic documented as of this encounter Procedures Procedure Name Priority Date/Time Associated Diagnosis Comme nts AGREEMENTS AUTHORIZATIONS Routine 09/28/2019 12:01 AM AND IRREVOCABLE HAM STRIPPER ASSIGNMENTS (FORM 2001) documented in this encounter Results Not on filedocumented in this encounter Insurance Payer Benefit Plan / Group Subscriber ID Effective Dates Phone Address Type CORINE POOL II [id number] 2019-Present H MO/PPO/POS documented as of this encounter
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
--- OUTSIDE RECORDS SUMMARY | 2019-11-30 09:13 | XMS REPORT | Summary of Care ---
:1984 Author Organization [facility] Address [address] [place] [address] Care Team Providers Name Role Phone Josh Smith MD Primary Care Provider Reason for Visit Reason Comments LAB Encounter Details Date Type Department Care Team Description 10/05/2019 Vulcan Crewmember Visit [facility] Nohelia Guerra MD [address] [place] [address] [address] [place] [address] Retained products Professional Office 2, Adc Lab of conception after Building Phlebotomy miscarri age Lab Professional Office Building [address] [facility] , [address] [place] [address] Allergies No Known Allergiesdocumented as [...] Visit Obstetrics & Gynecology Caren Guerra MD [address] [place] [address] DR. Baum [address] [place] [place] [address] Health Maintenance Due Date Last [...]
--- OUTSIDE RECORDS SUMMARY | 2019-11-30 09:14 | XMS REPORT | Summary of Care ---
:1985 Author Organization [facility] Address [address] [place] [address] Care Team Providers Name Role Phone Josh Smith MD Primary Care Provider Reason for Visit Reason Comments LAB Encounter Details Date Type Department Care Team Description 10/12/2019 Cupola Repairer Visit [facility] Nohelia Guerra MD [address] [place] [address] [address] [place] [address] Retained products Professional Office 2, Adc Lab of conception after Building Phlebotomy miscarri age Lab Professional Office Building [address] [facility] , [address] [place] [address] Allergies No Known Allergiesdocumented as of this encounter (statuses as of 10/12/2019) Medications Medication Sig Dispensed Refills Start Date [...] as of this encounter (statuses as of 10/12/2019) Active Problems Problem Noted Date New onset [...] as of this encounter (statuses as of 10/12/2019) Resolved Problems Problem Noted Date Resolved Date Anemia 08/06/2019 08/07/2019 13 weeks gestation of 07/07/2019 07/26/20 19 Abdominal cramping affecting 07/07/2019 1 09/07/2018 Threatened , antepartum 07/07/2019 07/26/20 19 Abnormal maternal glucose tolerance, antepartum 07/07/2019 08/23/2019 Iron deficiency anemia 04/20/2018 07/07/2019 documented as of this encounter (statuses as of 10/12/2019) Immunizations Name Administration Dates Next Due Influenza [...] Visit Obstetrics & Gynecology Caren Guerra MD [address] [place] [address] DR. Baum [address] [place] [address] Health Maintenance Due Date Last [...]
--- OUTSIDE RECORDS SUMMARY | 2019-11-30 09:14 | XMS REPORT | Summary of Care ---
:1984 Author Organization [facility] Address [address] [place] [address] Care Team Providers Name Role Phone Josh Smith MD Primary Care Provider Reason for Visit Reason Comments LAB Encounter Details Date Type Department Care Team Description 10/05/2019 Case Management [facility] Women's Hannah Mcnulty PA-C [facility] Healthcare- [address] [facility], [facility] [address] [place] [address] [phone] Allergies No Known Allergiesdocumented as of this [...] Visit Obstetrics & Gynecology Caren Guerra MD [address] [place] [address] DR. Baum [address] [place] [address] [phone] Name Type Priority Associated Diagnoses Order S chedule TOTAL BETA HCG ASSAY LAB Routine Retained products of Expected: 10/12/2019, conception after Expires: miscarriage Health Maintenance Due [...] Dates Phone Address Type CORINE POOL II [id number] 2019-Present H MO/PPO/POS documented as of this encounter
--- OUTSIDE RECORDS SUMMARY | 2019-11-30 09:15 | XMS REPORT | Summary of Care ---
:1984 Author Organization [facility] Address [address] [place] [address] Care Team Providers Name Role Phone Josh Smith MD Primary Care Provider Reason for Visit Reason Comments Refill Request Encounter Details Date Type Department Care Team Description 10/28/2019 Refill [facility] Women's GuerraNohelia MD Refill Request Healthcare- [address], Suite [facility] 20 8 208 [place] [address] [place] [address] [phone] Allergies No Known Allergiesdocumented as of this encounter (statuses as of 10/28/2019) Medications Medication Sig Dispensed Refills Start Date [...] as of this encounter (statuses as of 10/28/2019) Active Problems Problem Noted Date New onset [...] as of this encounter (statuses as of 10/28/2019) Resolved Problems Problem Noted Date Resolved Date Anemia 08/06/2019 08/07/2019 13 weeks gestation of 07/07/2019 07/26/20 19 Abdominal cramping affecting 07/07/2019 1 09/07/2018 Threatened , antepartum 07/07/2019 07/26/20 19 Abnormal maternal glucose tolerance, antepartum 07/07/2019 08/23/2019 Iron deficiency anemia 04/20/2018 07/07/2019 documented as of this encounter (statuses as of 10/28/2019) Immunizations Name Administration Dates Next Due Influenza [...] Visit Obstetrics & Gynecology Caren Guerra MD [address] [place] [address] [place] [address] 15 [phone] Health Maintenance Due Date Last Done Comments [...] filedocumented in this encounter Visit Diagnoses Diagnosis Dysmenorrhea documented in this encounter Insurance Payer Benefit Plan / Group Subscriber ID Effective Dates Phone Address Type CORINE POOL II [id number] 2019-Present H MO/PPO/POS documented as of this encounter
--- OUTSIDE RECORDS SUMMARY | 2019-11-30 09:15 | XMS REPORT | Summary of Care ---
:1984 Author Organization [facility] Address [address] [place] [address] Care Team Providers Name Role Phone Josh Smith MD Primary Care Provider Encounter Details Date Type Department Care Team Description 10/28/2019 Patient Secure [facility] Family Estela Smith, Dysmenorrhea Medicine - [address] [phone] Allergies No Known Allergiesdocumented as of this [...] for BCP ( control pills) initial prescription levocetirizine 5 mg 0 Active tablet montelukast 10 mg TAKE 1 0 07/30/2019 A ctive tablet TABLET BY MOUTH ONCE DAILY IN THE EVENING ferrous sulfate 325 Take 1 60 capsule 3 09/28/2019 Active mg (65 mg iron) SR capsule by capsule mouth 3 (three) times daily. ibuprofen 600 mg Take 1 30 tablet 1 10/28/2019 Ac tive tabletIndications: tablet by Dysmenorrhea mouth every 6 (six) hours as needed for Pain (scale 1-3) or Pain (scale 4-6). ibuprofen 600 mg Take 1 30 tablet 1 09/06/2019 Di scontinued tabletIndications: tablet by 0 ( Reorder) Dysmenorrhea mouth every 6 (six) hours as [...] Visit Obstetrics & Gynecology Caren Guerra MD [address] [place] [address] [place] [address] [phone] Health Maintenance Due Date Last Done Comments [...] Dates Phone Address Type CORINE POOL II [id number] 2019-Present H MO/PPO/POS documented as of this encounter
--- OUTSIDE RECORDS SUMMARY | 2019-11-30 09:15 | XMS REPORT | Summary of Care ---
:1984 Author Organization [facility] Address [address] [place] [address] Care Team Providers Name Role Phone Josh Smith MD Primary Care Provider Reason for Visit Reason Comments Refill Request Encounter Details Date Type Department Care Team Description 10/13/2019 Refill [facility] Women's GuerraNohelia MD Refill Request Healthcare- [address], [address] 8 [address] [place] [address] [place] [address] [phone] Allergies No Known Allergiesdocumented as of this encounter (statuses as of 10/14/2019) Medications Medication Sig Dispensed Refills Start Date [...] as of this encounter (statuses as of 10/14/2019) Active Problems Problem Noted Date New onset [...] as of this encounter (statuses as of 10/14/2019) Resolved Problems Problem Noted Date Resolved Date Anemia 08/06/2019 08/07/2019 13 weeks gestation of 07/07/2019 07/26/20 19 Abdominal cramping affecting 07/07/2019 1 09/07/2018 Threatened , antepartum 07/07/2019 07/26/20 19 Abnormal maternal glucose tolerance, antepartum 07/07/2019 08/23/2019 Iron deficiency anemia 04/20/2018 07/07/2019 documented as of this encounter (statuses as of 10/14/2019) Immunizations Name Administration Dates Next Due Influenza [...] Visit Obstetrics & Gynecology Caren Guerra MD [address] [place] [address] [place] [address] 15 [phone] Health Maintenance Due Date Last Done Comments [...] Dates Phone Address Type CORINE POOL II [id number] 2019-Present H MO/PPO/POS documented as of this encounter
--- OUTSIDE RECORDS SUMMARY | 2019-11-30 09:15 | XMS REPORT | Summary of Care ---
:1984 Author Organization [facility] - Health Address [address] [place] [address] Care Team Providers Name Role Phone Josh Smith MD Primary Care Provider Encounter Details Date Type Department Care Team Description 10/12/2019 Orders Only [facility] Doctor Unassigned, No [facility] [place] [phone] [place] [address] Allergies No Known Allergiesdocumented as of this encounter (statuses as of 10/19/2019) Medications Medication Sig Dispensed Refills Start Date [...] as of this encounter (statuses as of 10/19/2019) Active Problems Problem Noted Date New onset [...] as of this encounter (statuses as of 10/19/2019) Resolved Problems Problem Noted Date Resolved Date Anemia 08/06/2019 08/07/2019 13 weeks gestation of 07/07/2019 07/26/20 19 Abdominal cramping affecting 07/07/2019 1 09/07/2018 Threatened , antepartum 07/07/2019 07/26/20 19 Abnormal maternal glucose tolerance, antepartum 07/07/2019 08/23/2019 Iron deficiency anemia 04/20/2018 07/07/2019 documented as of this encounter (statuses as of 10/19/2019) Immunizations Name Administration Dates Next Due Influenza [...] Visit Obstetrics & Gynecology Caren Guerra MD [address] [place] [address] DR. Baum [address] [place] [address] 15 [phone] Health Maintenance Due Date Last Done Comments [...] Associated Diagnosis Comme nts AGREEMENTS AUTHORIZATIONS Routine 10/12/2019 12:01 AM AND IRREVOCABLE CDT ASSIGNMENTS (FORM 2001) documented in this encounter Results Not on filedocumented in this encounter Insurance Payer Benefit Plan / Group Subscriber ID Effective Dates Phone Address Type CORINE POOL II [id number] 2019-Present H MO/PPO/POS documented as of this encounter
--- OUTSIDE RECORDS SUMMARY | 2019-11-30 09:15 | XMS REPORT | Summary of Care ---
:1984 Author Organization [facility] Address [address] [place] [address] Care Team Providers Name Role Phone Josh Smith MD Primary Care Provider Reason for Visit Reason Comments Refill Request Encounter Details Date Type Department Care Team Description 10/14/2019 Refill [facility] Women's GuerraNohelia MD Refill Request Healthcare- [address], Suite [facility] 20 8 [address] [place] [address] [place] [address] [phone] Allergies No Known Allergiesdocumented as of this [...] Visit Obstetrics & Gynecology Caren Guerra MD [address] [place] [address] [place] [address] 15 [phone] Health Maintenance Due Date Last Done Comments [...] Dates Phone Address Type CORINE POOL II [id number] 2019-Present H MO/PPO/POS documented as of this encounter
--- OUTSIDE RECORDS SUMMARY | 2019-11-30 09:16 | XMS REPORT | Summary of Care ---
:1984 Author Organization [facility] Address [address] [place] [address] Care Team Providers Name Role Phone Josh Smith MD Primary Care Provider Reason for Visit Reason Comments Assessment Encounter Details Date Type Department Care Team Description 11/15/2019 Telephone [facility] Women's Nohelia Guerra MD Assessment Healthcare- [address], Suite [facility] 20 8 208 [place] [address] [place] [address] [phone] Allergies No Known Allergiesdocumented as of this encounter (statuses as of 11/15/2019) Medications Medication Sig Dispensed Refills Start Date [...] capsule by mouth 3 (three) times daily. ibuprofen 600 mg Take 1 tablet by 30 tablet 1 10/28/2019 Active tabletIndications: mouth every 6 Dysmenorrhea (six) hours as needed for Pain (scale 1-3) or Pain (scale 4-6). documented as of this encounter (statuses as of 11/15/2019) Active Problems Problem Noted Date New onset [...] as of this encounter (statuses as of 11/15/2019) Resolved Problems Problem Noted Date Resolved Date Anemia 08/06/2019 08/07/2019 13 weeks gestation of 07/07/2019 07/26/20 19 Abdominal cramping affecting 07/07/2019 1 09/07/2018 Threatened , antepartum 07/07/2019 07/26/20 19 Abnormal maternal glucose tolerance, antepartum 07/07/2019 08/23/2019 Iron deficiency anemia 04/20/2018 07/07/2019 documented as of this encounter (statuses as of 11/15/2019) Immunizations Name Administration Dates Next Due Influenza [...] Treatment Date Type Specialty Care Team Description 11/16/2019 Office Visit Obstetrics & Gynecology Caern Guerra MD [address] [facility] [address] [place] [address] 15 05/08/2020 Office Visit Obstetrics & Gynecology Caren Guerra MD [address] [facility] [address] [place] [address] 15 Health Maintenance Due Date Last Done [...] Dates Phone Address Type CORINE POOL II [id number] 2019-Present H MO/PPO/POS documented as of this encounter
--- OUTSIDE RECORDS SUMMARY | 2019-11-30 09:16 | XMS REPORT | Summary of Care ---
:1984 Author Organization [facility] Address [address] [place] [address] Care Team Providers Name Role Phone Josh Smith MD Primary Care Provider Reason for Visit Reason Comments Assessment abnormal bleeding Rx Concern/Question control Notification Closing encounter Encounter Details Date Type Department Care Team Description 11/14/2019 Telephone [facility] Women's GuerraNohelia MD Assessment (abnormal Healthcare- [address] bleeding); Rx [address] [place], [place] [address]DR. Concern/Question ( [address] control); Notification [place], [place] [address] (Closing encounter) [phone] Allergies No Known Allergiesdocumented as of this encounter (statuses as of 11/14/2019) Medications Medication Sig Dispensed Refills Start Date [...] as of this encounter (statuses as of 11/14/2019) Active Problems Problem Noted Date New onset [...] as of this encounter (statuses as of 11/14/2019) Resolved Problems Problem Noted Date Resolved Date Anemia 08/06/2019 08/07/2019 13 weeks gestation of 07/07/2019 07/26/20 19 Abdominal cramping affecting 07/07/2019 1 09/07/2018 Threatened , antepartum 07/07/2019 07/26/20 19 Abnormal maternal glucose tolerance, antepartum 07/07/2019 08/23/2019 Iron deficiency anemia 04/20/2018 07/07/2019 documented as of this encounter (statuses as of 11/14/2019) Immunizations Name Administration Dates Next Due Influenza [...] Visit Obstetrics & Gynecology Caren Guerra MD [address] [place] [address] [address] [place] [address] 15 [phone] Health Maintenance Due Date Last Done Comments [...] Dates Phone Address Type CORINE POOL II [id number] 2019-Present H MO/PPO/POS documented as of this encounter
--- OUTSIDE RECORDS SUMMARY | 2019-11-30 09:16 | XMS REPORT | Summary of Care ---
:1985 Author Organization [facility] Address [address] [place] [address] Care Team Providers Name Role Phone Josh Smith MD Primary Care Provider Reason for Visit Reason Comments Assessment abnormal bleeding Rx Concern/Question control Notification Closing encounter Encounter Details Date Type Department Care Team Description 11/14/[address] [facility] Women's GuerraNohelia MD Assessment (abnormal Healthcare- [address] bleeding); Rx [address] [place], [place] [address]DR. Concern/Question ( [address] control); [place], [place] [address] (Closing encounter) [phone] Allergies [...] Visit Obstetrics & Gynecology Caren Guerra MD [address] [place] [address] DR. Baum [address] [place] [address] [phone] Health Maintenance Due Date Last Done Comments [...] Dates Phone Address Type CORINE POOL II [id number] 2019-Present H MO/PPO/POS documented as of this encounter
--- OUTSIDE RECORDS SUMMARY | 2019-11-30 09:16 | XMS REPORT | Summary of Care ---
:1985 Author Organization [address] [address] Care Team Providers Name Role Phone Josh Smith MD Primary Care Provider Reason for Visit Reason Comments Vaginal Bleeding bleeding since miscarriage, has fibroids Encounter Details Date Type Department Care Team Description 11/14/2019 Nurse Triage [facility] Randi Whitney RN Vaginal Bleeding [address] [place] [address] (bleeding s [address] miscarriage, [place] [address] fibroid s) [id number] Allergies No Known Allergiesdocumented as of this [...] Visit Obstetrics & Gynecology Caren Guerra MD [address] [place] [address] [place] [address] Health Maintenance Due Date Last Done [...] Dates Phone Address Type CORINE POOL II [id number] 2019-Present H MO/PPO/POS documented as of this encounter
--- OUTSIDE RECORDS SUMMARY | 2019-11-30 09:16 | XMS REPORT | Summary of Care ---
:1985 Author Organization [facility] Address [address] [place] [address] Care Team Providers Name Role Phone Josh Smith MD Primary Care Provider Reason for Visit Reason Comments Assessment Encounter Details Date Type Department Care Team Description 11/10/2019 Telephone [facility] Pediatric and Josh Bautista MD Assessment Adult Primary Care- [address] [place] [address] [place] [address] , [address] [place] [address] Allergies No Known Allergiesdocumented as of this encounter (statuses as of 11/10/2019) Medications Medication Sig Dispensed Refills Start Date [...] as of this encounter (statuses as of 11/10/2019) Active Problems Problem Noted Date New onset [...] as of this encounter (statuses as of 11/10/2019) Resolved Problems Problem Noted Date Resolved Date Anemia 08/06/2019 08/07/2019 13 weeks gestation of 07/07/2019 07/26/20 19 Abdominal cramping affecting 07/07/2019 1 09/07/2018 Threatened , antepartum 07/07/2019 07/26/20 19 Abnormal maternal glucose tolerance, antepartum 07/07/2019 08/23/2019 Iron deficiency anemia 04/20/2018 07/07/2019 documented as of this encounter (statuses as of 11/10/2019) Immunizations Name Administration Dates Next Due Influenza [...] Obstetrics & Gynecology Caren Guerra MD [address] [place] [address] DR[address] Baum [address] [place] [address] [phone] Health Maintenance Due Date Last Done Comments [...] Dates Phone Address Type CORINE POOL II [id number] 2019-Present H MO/PPO/POS documented as of this encounter
--- OUTSIDE RECORDS SUMMARY | 2019-11-30 09:17 | XMS REPORT | Summary of Care ---
:1985 Author Organization [facility] Address [address] [place] [address] Care Team Providers Name Role Phone Josh Smith MD Primary Care Provider Reason for Visit Reason Comments Vaginal Bleeding Encounter Details Date Type Department Care Team Description 11/16/2019 Telemedicine Visit [facility] Women's Guerra, Nohelia Amato MD Abnormal uterine bleeding (Primary Dx); [facility]- [address] [place] [address] Iron defic iency anemia due to chronic blood loss; [place] Intramural leiomyoma of uterus [address] [place] [address] [address] [place] [phone] Allergies No Known Allergiesdocumented as of this encounter (statuses as of 11/16/2019) Medications Medication Sig Dispensed Refills Start Date [...] Pain (scale 1-3) or Pain (scale 4-6). ascorbic acid, vitamin Take 1 tablet by 30 tablet 3 11/16/2019 Active C, 500 mg mouth daily. tabletIndications: Iron deficiency anemia due to chronic blood loss norgestimate-ethinyl Take 2 tablets 2 Package 0 11/16/2019 Active estradiol 0.25-35 by mouth daily. mg-mcg per tabletIndications: Iron deficiency anemia due to chronic blood loss, Abnormal uterine bleeding proMETHazine 12.5 mg Take 2 tablets 30 tablet 1 11/16/2019 Active tabletIndications: by mouth every 6 Abnormal uterine (six) hours as bleeding needed for Nausea and Vomiting (N/V). documented as of this encounter (statuses as of 11/16/2019) Active Problems Problem Noted Date New onset [...] as of this encounter (statuses as of 11/16/2019) Resolved Problems Problem Noted Date Resolved Date Anemia 08/06/2019 08/07/2019 13 weeks gestation of 07/07/2019 07/26/20 19 Abdominal cramping affecting 07/07/2019 1 09/07/2018 Threatened , antepartum 07/07/2019 07/26/20 19 Abnormal maternal glucose tolerance, antepartum 07/07/2019 08/23/2019 Iron deficiency anemia 04/20/2018 07/07/2019 documented as of this encounter (statuses as of 11/16/2019) Immunizations Name Administration Dates Next Due Influenza [...] Signs Not on filedocumented in this encounter Progress Notes Nohelia Guerra MD - 11/16/2019 9:30 AM CDT TELEHEALTH NOTE Verbal consent obtained from Patient: Lubna Joe for telehealth services provided below due to COVID-19 crises. Communication with patient was conducted via Telephone due to patient unable to obtain video call option. Location of Patient: Home Location of Provider: Office Date of Service: 11/16/2019 Chief Complaint: Vaginal bleeding HPI: Lubna Joe is a 33 year old female with Heavy vaginal bleeding on September 29, lasted for 1-2 wks. Currently, still has daily bleeding, changing pad every 3 hours and pad is about 60% soaked. Denies blood clots. Feels like she is bleeding more at night when laying down. Started taking OCPs in mid-Aug, self discontinued around 09/23/2019 as was having headaches and dizziness and thought it was from OCPs. Admitted at [facility] and had blood transfusion (2 units on 09/23/2019). Restarted OCPs 10/23/2019 and currently on her 3rd day ofplacebo pills. Patient was not aware that she is supposed to skip the placebo pills. + fatigue andintermittent GARRIDO but denies chest pain, SOB, or dizziness. Past Medical History: Diagnosis Date Abnormal maternal glucose tolerance, antepartum 07/07/2019 Abnormal uterine bleeding Chronic pain of multiple joints 04/20/2018 Dysmenorrhea 09/06/2019 History of blood transfusion 09/23/2019 History of blood transfusion Intramural leiomyoma of uterus 08/07/2019 Iron deficiency anemia 04/20/2018 Seasonal allergies MEDICATIONS: No outpatient medications have been marked as taking for the 11/16/19 encounter (Telemedicine Visit) with Nohelia Guerra MD. ROS As above TELEHEALTH EXAM Alert and oriented. Able to speak in complete sentences. ASSESSMENT/ PLAN Lubna Joe is a 33 year old female with PMH as above presenting with: Abnormal uterine bleeding (primary encounter diagnosis) Comment: beta-HCG negative on 10/12/2019. Abnormal uterine bleeding likely secondary to fibroids. Will have patient take 2 tabs of Sprintec daily until vaginal bleeding stops and then take 1 pill daily. (patient has been instructed to do extended regimen and aimed to have a period every 3 months) Plan: CBC WITH DIFF, HCG, QUANTITATIVE, , norgestimate-ethinyl estradiol 0.25-35 mg-mcg per tablet Iron deficiency anemia due to chronic blood loss Plan: ascorbic acid, vitamin C, 500 mg tablet, CBC WITH DIFF, HCG, QUANTITATIVE, , norgestimate-ethinyl estradiol 0.25-35 mg-mcg per tablet, continue iron supplements Intramural leiomyoma of uterus Comment: as above Plan: advise removing the fibroid prior to trying for Follow-up in 4 wks via tele-health or sooner PRN Discussed about COVID-19/flu precautions. Social distancing, frequent hand washings, and to follow CDC recommendations discussed. After visit summary (AVS ) documentation will be available through [employer] for this encounter. Nohelia Guerra MD documented in this encounter Plan of Treatment Date Type Specialty Care Team Description 05/08/2020 Office Visit Obstetrics & Gynecology Caren Guerra MD [address] [place] [address] DR. Bautista [address] [place] [address] [phone] Name Type Priority Associated Diagnoses Order S chedule CBC WITH DIFF LAB Routine Iron deficiency anemia Expe cted: 11/16/2019, due to chronic b lood loss Expires: 11/15/2020 Abnormal uterine bleeding HCG, QUANTITATIVE, LAB Routine Iron deficiency anemia Expected: 11/16/2019, due to chronic b lood loss Expires: 11/15/2020 Abnormal uterine bleeding Health Maintenance Due Date Last Done Comments VARICELLA VACCINES ( - 1985 2-dose childhood series) DTaP,Tdap,and Td Vaccines ( - 11/28/1995 Tdap) PAP SMEAR 05/19/2022 05/19/2019 INFLUENZA VACCINE Completed 06/09/2019 PNEUMOCOCCAL 0-64 YEARS COMBINED Aged Out No longer eligible based on SERIES patient's age to complete this topic documented as of this encounter Results Not on filedocumented in this encounter Visit Diagnoses Diagnosis Abnormal uterine bleeding - Primary Unspecified disorder of menstruation and other abnormal bleeding from female genital tract Iron deficiency anemia due to chronic bl ood loss Iron deficiency anemia secondary to bloo d loss (chronic) Intramural leiomyoma of uterus documented in this encounter Guarantor Name Account Type Relation to Date of Phone Bill ing Patient Address HeathMarciLubna Personal/Family Self 1985 [address] (Home) [place] [address] documented as of this encounter
--- OUTSIDE RECORDS SUMMARY | 2019-11-30 09:17 | XMS REPORT | Summary of Care ---
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 Baum [address] [place] [address] [phone] Name Type Priority Associated Diagnoses Order S chedule CBC WITH DIFFERENTIAL LAB Routine Iron deficiency ane kathleen due to Ordered: 11/16/2019 chronic blood lo ss Abnormal uterine bleeding Health Maintenance Due Date [...] filedocumented in this encounter Visit Diagnoses Diagnosis Iron deficiency anemia due to chronic bl ood loss Iron deficiency anemia secondary to bloo d loss (chronic) Abnormal uterine bleeding Unspecified disorder of menstruation and other abnormal bleeding from female genital tract documented in this encounter Guarantor Name Account Type Relation to Date of Phone Bill ing Patient Address HeathMarciLubna Personal/Family Self 1985 [address] (Home) [place] [address] documented as of this encounter
--- OUTSIDE RECORDS SUMMARY | 2019-11-30 09:18 | XMS REPORT | Summary of Care ---
:1985 Author Organization [facility] Address [address] [place] [address] Care Team Providers Name Role Phone Josh Smith MD Primary Care Provider Reason for Visit Reason Comments Appointment Encounter Details Date Type Department Care Team Description 11/24/2019 Telephone [facility] Women's GuerraNohelia MD Appointment Healthcare- [address], Suite [facility] 20 8 [address] [place] [address] [place] [address] [phone] Allergies No Known Allergiesdocumented as of this encounter (statuses as of 11/24/2019) Medications Medication Sig Dispensed Refills Start Date [...] bleeding needed for Nausea and Vomiting (N/V). foLIC acid 1 mg Take 1 tablet by 30 tablet 3 11/16/2019 Active tabletIndications: mouth daily. Retained products of conception after miscarriage, S/P D&C (status post dilation and curettage) documented as of this encounter (statuses as of 11/24/2019) Active Problems Problem Noted Date New onset [...] as of this encounter (statuses as of 11/24/2019) Resolved Problems Problem Noted Date Resolved Date Anemia 08/06/2019 08/07/2019 13 weeks gestation of 07/07/2019 07/26/20 19 Abdominal cramping affecting 07/07/2019 1 09/07/2018 Threatened , antepartum 07/07/2019 07/26/20 19 Abnormal maternal glucose tolerance, antepartum 07/07/2019 08/23/2019 Iron deficiency anemia 04/20/2018 07/07/2019 documented as of this encounter (statuses as of 11/24/2019) Immunizations Name Administration Dates Next Due Influenza [...] Travel End No recent travel history available. COVID-19 Exposure Response Date Recorded In the last month, have you been in contact with No / Unsure 11/16/2019 10:07 AM CDT someone who was confirmed or suspected to have Coronavirus / COVID-19? documented as of this encounter Last Filed Vital Signs Not on filedocumented in this encounter Plan of Treatment Date Type Specialty Care Team Description 12/15/2019 Telemedicine Visit Obstetrics & Gynecology Nohelia Guerra MD [address] [place] [address] DR. Olivares [place] [address] [phone] 05/08/2020 Office Visit Obstetrics & Gynecology Caren Guerra MD [address] [place] [address] DR. Olivares [place], [place] [address] [phone] Health Maintenance Due Date Last Done Comments [...] Dates Phone Address Type CORINE POOL II [id number] 2019-Present H MO/PPO/POS documented as of this encounter
--- OUTSIDE RECORDS SUMMARY | 2019-11-30 09:18 | XMS REPORT | Summary of Care ---
:1985 Author Organization [facility] - Health Address [address] [place] [address] Care Team Providers Name Role Phone Josh Smith MD Primary Care Provider Encounter Details Date Type Department Care Team Description 11/16/2019 Orders Only [facility] Doctor Unassigned, No [address] [facility] [place] [address] 301 [place] [address] Allergies No Known Allergiesdocumented as of this encounter (statuses as of 11/17/2019) Medications Medication Sig Dispensed Refills Start Date [...] as of this encounter (statuses as of 11/17/2019) Active Problems Problem Noted Date New onset [...] as of this encounter (statuses as of 11/17/2019) Resolved Problems Problem Noted Date Resolved Date Anemia 08/06/2019 08/07/2019 13 weeks gestation of 07/07/2019 07/26/20 19 Abdominal cramping affecting 07/07/2019 1 09/07/2018 Threatened , antepartum 07/07/2019 07/26/20 19 Abnormal maternal glucose tolerance, antepartum 07/07/2019 08/23/2019 Iron deficiency anemia 04/20/2018 07/07/2019 documented as of this encounter (statuses as of 11/17/2019) Immunizations Name Administration Dates Next Due Influenza [...] Treatment Date Type Specialty Care Team Description 11/24/2019 Telemedicine Visit Obstetrics & Gynecology Nohelia Guerra MD [address] [place] [address] DR. [address]um [address] [place] [address] [phone] 12/15/2019 Telemedicine Visit Obstetrics & Gynecology Nohelia Guerra MD [address] [place] [address] DR. Baum [address] [place] [address] [phone] 05/08/2020 Office Visit Obstetrics & Gynecology Caren Guerra MD [address] [place] [address] [address]. Baum [address] [place] [address] [phone] Health Maintenance Due Date Last Done Comments [...] Associated Diagnosis Comme nts AGREEMENTS AUTHORIZATIONS Routine 11/16/2019 12:01 AM AND IRREVOCABLE CDT ASSIGNMENTS (FORM 2001) documented in this encounter Results Not on filedocumented in this encounter Insurance Payer Benefit Plan / Group Subscriber ID Effective Dates Phone Address Type CORINE POOL II [id number] 2019-Present H MO/PPO/POS documented as of this encounter
--- OUTSIDE RECORDS SUMMARY | 2019-11-30 09:18 | XMS REPORT | Summary of Care ---
:1985 Author Organization [facility] Address [address] [place] [address] Care Team Providers Name Role Phone Josh Smith MD Primary Care Provider Reason for Visit Reason Comments Refill Request Encounter Details Date Type Department Care Team Description 11/16/2019 Telephone [facility] Women's GuerraNohelia MD Refill Request [facility]- [address] [place] [address], Suite [facility] 20 8 208 [place] [address] [place] [address] [phone] Allergies No Known Allergiesdocumented as of this encounter (statuses as of 11/16/2019) Medications Medication Sig Dispensed Refills Start Date End Date Status Ascorbic Acid Take 1 30 tablet 3 08/06/2019 Activ e (VITAMIN C) 500 mg TAB-CAP/M2 by ChewIndications: mouth daily. Retained products of conception after miscarriage, S/P D&C (status post dilation and curettage) norgestimate-ethiny Take 1 tablet 4 Package 3 09/06/2019 Active l estradiol 0.25-35 by mouth mg-mcg per daily. tabletIndications: Encounter for BCP ( control pills) initial prescription levocetirizine 5 mg 0 Active tablet montelukast 10 mg TAKE 1 TABLET 0 07/30/2019 Active tablet BY MOUTH ONCE DAILY IN THE EVENING ferrous sulfate 325 Take 1 60 capsule 3 09/28/2019 Active mg (65 mg iron) SR capsule by capsule mouth 3 (three) times daily. ibuprofen 600 mg Take 1 tablet 30 tablet 1 10/28/2019 Active tabletIndications: by mouth Dysmenorrhea every 6 (six) hours as needed for Pain (scale 1-3) or Pain (scale 4-6). ascorbic acid, Take 1 tablet 30 tablet 3 11/16/2019 Active vitamin C, 500 mg by mouth tabletIndications: daily. Iron deficiency anemia due to chronic blood loss norgestimate-ethiny Take 2 2 Package 0 11/16/2019 Active l estradiol 0.25-35 tablets by mg-mcg per mouth daily. tabletIndications: Iron deficiency anemia due to chronic blood loss, Abnormal uterine bleeding proMETHazine 12.5 Take 2 30 tablet 1 11/16/2019 A ctive mg tablets by tabletIndications: mouth every 6 Abnormal uterine (six) hours bleeding as needed for Nausea and Vomiting (N/V). foLIC acid 1 mg Take 1 tablet 30 tablet 3 11/16/2019 Active tabletIndications: by mouth Retained products daily. of conception after miscarriage, S/P D&C (status post dilation and curettage) foLIC acid 1 mg Take 1 tablet 30 tablet 3 08/06/2019 11/16/19 Discontinued tabletIndications: by mouth 20 ( Reorder) Retained products daily. of conception after miscarriage, [...] Visit Obstetrics & Gynecology Nohelia Guerra MD [address] [place] [address] [address]. [address]um [address] [place], [place] [address] [phone] 12/15/2019 Telemedicine Visit Obstetrics & Gynecology Nohelia Guerra MD [address] [place] [address] DR. Olivares [place], [place] [address] [phone] 05/08/2020 Office Visit Obstetrics & Gynecology Caren Guerra MD [address] [place] [address] DR. Olivares [place], [place] [address] [phone] Health Maintenance Due Date Last Done Comments [...] Retained products of conception after mi scarriage S/P D&C (status post dilation and curett age) Other postprocedural status documented in this encounter Insurance Payer Benefit Plan / Group Subscriber ID Effective Dates Phone Address Type CORINE POOL II [id number] 2019-Present H MO/PPO/POS documented as of this encounter
--- OUTSIDE RECORDS SUMMARY | 2019-11-30 09:18 | XMS REPORT | Summary of Care ---
:1985 Author Organization [facility] - Health Address [address] [place] [address] Care Team Providers Name Role Phone Josh Smith MD Primary Care Provider Encounter Details Date Type Department Care Team Description 11/08/2019 Orders Only [facility] Doctor Unassigned, No [address] [facility] [place] [address] 301 [place] [address] Allergies No Known Allergiesdocumented as of this [...] Visit Obstetrics & Gynecology Nohelia Guerra MD [address] [place] [address] [address]. [address]um [address] [place] [address] 05/08/2020 Office Visit Obstetrics & Gynecology Caren Guerra MD [address] [place] [address] DR. Baum [address] [place] [address] Health Maintenance Due Date Last Done [...] Name Priority Date/Time Associated Diagnosis Comme nts INSURANCE CORRESPONDENCE Routine 11/08/2019 12:01 AM CDT documented in this encounter Results Not on filedocumented in this encounter Insurance Payer Benefit Plan / Group Subscriber ID Effective Dates Phone Address Type CORINE POOL II [id number] 2019-Present H MO/PPO/POS documented as of this encounter
--- OUTSIDE RECORDS SUMMARY | 2019-11-30 09:19 | XMS REPORT | Summary of Care ---
:1985 Author Organization [facility] Address [address] [place] [address] Care Team Providers Name Role Phone Josh Smith MD Primary Care Provider Encounter Details Date Type Department Care Team Description 11/29/2019 Patient Secure Msg [facility] Women's GuerraNohelia MD [facility]- [address] 208 [facility] 208 [place] [address] [place] [address] [phone] Allergies No Known Allergiesdocumented as of this encounter (statuses as of 11/29/2019) Medications Medication Sig Dispensed Refills Start Date [...] as of this encounter (statuses as of 11/29/2019) Active Problems Problem Noted Date New onset [...] as of this encounter (statuses as of 11/29/2019) Resolved Problems Problem Noted Date Resolved Date Anemia 08/06/2019 08/07/2019 13 weeks gestation of 07/07/2019 07/26/20 19 Abdominal cramping affecting 07/07/2019 1 09/07/2018 Threatened , antepartum 07/07/2019 07/26/20 19 Abnormal maternal glucose tolerance, antepartum 07/07/2019 08/23/2019 Iron deficiency anemia 04/20/2018 07/07/2019 documented as of this encounter (statuses as of 11/29/2019) Immunizations Name Administration Dates Next Due Influenza [...] Visit Obstetrics & Gynecology Nohelia Guerra MD [address] [place] [address] [address]. [address]um [address] [place], [place] [address] [phone] 05/08/2020 Office Visit Obstetrics & Gynecology Caren Guerra MD [address] [place] [address] DR. Olivares [place], [place] [address] Health Maintenance Due Date Last [...] Subscriber ID Effective Dates Phone Address Type [employer]IG[employer] CIGNA II [id number] 2019-Present H MO/PPO/POS documented as of this encounter
--- OUTSIDE RECORDS SUMMARY | 2019-11-30 09:19 | XMS REPORT | Summary of Care ---
:1985 Author Organization [facility] Address [address] [place] [id number] Care Team Providers Name Role Phone Josh Smith MD Primary Care Provider Reason for Visit Reason Comments F/U Encounter Details Date Type Department Care Team Description 11/25/2019 Telemedicine Visit [facility] Women's GuerraNohelia Cam, Abnormal uterine bleeding (Primary Dx); Healthcare- MD Iron deficiency anemia due to chronic bl ood loss; [address] Dysmenorrhea [address] [place] [address] [address] [place] [address] [phone] Allergies No Known Allergiesdocumented as of this encounter (statuses as of 11/26/2019) Medications Medication Sig Dispensed Refills Start Date [...] as of this encounter (statuses as of 11/26/2019) Active Problems Problem Noted Date New onset [...] as of this encounter (statuses as of 11/26/2019) Resolved Problems Problem Noted Date Resolved Date Anemia 08/06/2019 08/07/2019 13 weeks gestation of 07/07/2019 07/26/20 19 Abdominal cramping affecting 07/07/2019 1 09/07/2018 Threatened , antepartum 07/07/2019 07/26/20 19 Abnormal maternal glucose tolerance, antepartum 07/07/2019 08/23/2019 Iron deficiency anemia 04/20/2018 07/07/2019 documented as of this encounter (statuses as of 11/26/2019) Immunizations Name Administration Dates Next Due Influenza [...] encounter Progress Notes Nohelia Guerra MD - 11/25/2019 9:30 AM CDT TELEHEALTH NOTE Verbal consent obtained from Patient: Lubna Joe due to the COVID-19 pandemic for telehealth services provided below. Communication with patient was conducted via Video Call. Location of Patient: Home Location of Provider: Office Date of Service: 11/25/2019 Chief Complaint: follow-up on AUB HPI: Lubna Joe is a 33 year old female with known uterine fibroids and AUB and dysmenorrhea here for follow-up. Patient was seen on 11/16/2019 and was instructed to take 2 tabs of Sprintec a day until bleeding resolved. Has been taking 2 tabs of Sprintec as instructed. Has been having only spotting for the past 5 days, panty liner changed every 5 hours. + cramping, but has improved, in the lower abdomen, where the fibroid is and is taking Ibuprofen 2x a day. Feels her mood is depressed but denies SI/HI since starting 2 tabs of OCPs. Is still taking iron supplement for anemia. Past Medical History: Diagnosis Date Abnormal maternal glucose tolerance, antepartum 07/07/2019 Abnormal uterine bleeding Chronic pain of multiple joints 04/20/2018 Dysmenorrhea 09/06/2019 History of blood transfusion 09/23/2019 History of blood transfusion Intramural leiomyoma of uterus 08/07/2019 Iron deficiency anemia 04/20/2018 Seasonal allergies Past Surgical History: Procedure Laterality Date DILATION AND CURETTAGE (SHX) N/A 08/06/2019 Surgeon: Nohelia Guerra MD; Location: [facility] OR Location No Known Allergies MEDICATIONS: Outpatient Medications Marked as Taking for the 11/25/19 encounter (Telemedicine Visit) with Nohelia Guerra MD Medication Sig Dispense Refill foLIC acid 1 mg tablet Take 1 tablet by mouth daily. 30 tablet 3 ferrous sulfate 325 mg (65 mg iron) SR capsule Take 1 capsule by mouth 3 (three) times daily. 60capsule 3 ROS See HPI TELEHEALTH EXAM NAD, appropriate reaction and response Breathing unlabored ASSESSMENT/ PLAN Lubna Joe is a 33 year old female with PMH as above presenting with: 1. Iron deficiency anemia due to chronic blood loss - Continue iron supplement 2. Abnormal uterine bleeding - Controlled with 2 tabs of OCPs daily. Instructed patient to decrease to 1 tab of OCPs a day. Continue to skip placebo pills. 3. Dysmenorrhea - likely due to fibroid. Discussed to continue NSAIDs and OCPs at this time. Surgical interventionto remove fibroid is recommended when patient is ready. After visit summary (AVS ) documentation will be available through [employer] for this encounter. A total of 17 minutes was spent on the video call and chart review. Nohelia Guerra MD documented in this encounter Plan of Treatment Date Type Specialty Care Team Description 12/15/2019 Telemedicine Visit Obstetrics & Gynecology Nohelia Guerra MD [address] [place] [address] DR. Olivares [place] [address] [phone] 05/08/2020 Office Visit Obstetrics & Gynecology Caren Guerra MD [address] [place] [address] DR. Olivares [place], [place] [address] [phone] Health Maintenance Due Date Last Done Comments [...] anemia secondary to bloo d loss (chronic) Dysmenorrhea documented in this encounter Guarantor Name Account Type Relation to Date of Phone Bill ing Patient Address Heath[place]na Personal/Family Self 1985 .[address] (Home) [place] [address] documented as of this encounter
--- OUTSIDE RECORDS SUMMARY | 2019-11-30 09:19 | XMS REPORT | Summary of Care ---
:1985 Author Organization [facility] Address [address] [place] [address] Care Team Providers Name Role Phone Josh Smith MD Primary Care Provider Reason for Visit Reason Comments Appointment Encounter Details Date Type Department Care Team Description 11/24/2019 Telephone [facility] Women's GuerraNohelia MD Appointment Healthcare- [address], Suite [facility] 20 8 [address] [place] [address] [place] [address] [phone] Allergies No Known Allergiesdocumented as of this [...] Treatment Date Type Specialty Care Team Description 11/25/2019 Telemedicine Visit Obstetrics & Gynecology Nohelia Guerra MD [address] [place] [address] DR. Baum [address] [place] [address] [phone] 12/15/2019 Telemedicine Visit Obstetrics & Gynecology Nohelia Guerra MD [address] [place] [address] DR. Olivares [place] [address] 15 [phone] 05/08/2020 Office Visit Obstetrics & Gynecology Caren Guerra MD [address] [place] [address] DR. Olivares [place] [address] 15 [phone] Health Maintenance Due Date Last Done Comments [...] Subscriber ID Effective Dates Phone Address Type MARY ANNBORIS CORINE II [id number] 2019-Present H MO/PPO/POS documented as of this encounter
[2019-11-30 11:36] LABS: Absolute Lymphocytes (CBC) 1.7 K/uL (0.7-4.9); Basophils % 0.9 % (0-1.3); Hematocrit 29.1 % (36.0-45.0); Lymphocytes % 16.1 % (15.3-44.8); MPV 8.8 fL (7.6-11.3); RBC Red Blood Cell Count 3.89 M/uL (3.86-4.86)
[2019-11-30 11:49] LABS: BUN Blood Urea Nitrogen 8 mg/dL (7-18); Bicarbonate 26 mmol/L (21-32); Glucose Level 109 mg/dL (74-106); Sodium Level 138 mmol/L (136-145)
--- NOTE | 2019-11-30 11:55 | EDPHYS ---
Physician Documentation [facility] Name: Lubna Joe Age: 34 yrs Sex: Female : 1985 Arrival Date: 11/30/2019 Time: 09:07 Bed 19 Private MD: GREGORY LEMOS ED Physician Grayson Mercedes HPI: 11/29 11:03 This 34 yrs old Female presents to ER via Ambulatory with complaints of Anemia.kb 11:15 The patient presents with vaginal bleeding that is moderate. Onset: The kb symptoms/episode began/occurred 4 month(s) ago. Modifying factors: The symptoms are alleviated by nothing, the symptoms are aggravated by nothing. Associated signs and symptoms: Pertinent positives: vaginal bleeding. Severity of symptoms: At their worst the symptoms were moderate, in the emergency department the symptoms are unchanged. The patient has experienced similar episodes in the past. The patient has been recently seen by a physician:. Pt reports she has a fibroid and has had vaginal bleeding since July. States she was scheduled to have surgery, but it got cancelled due to coronavirus. Had an appt with OB last week and had labs done, then has follow up tomorrow to reschedule surgery. States her OB called today and told her her hemoglobin was 7.8 and she wanted it higher before she went to surgery so she needed to come to the ER for a blood transfusion. Pt reports vaginal bleeding and pelvic pain that has been ongoing. Denies shortness of breath, fatigue, dyspnea on exertion. . Historical: - Allergies: 09:33 No Known Allergies; hb - Home Meds: 09:33 ferrous sulfate 324 mg (65 mg iron) Oral chew [Active]; Sprintec (28) 0.25-35 mg-mcg hb oral tab 1 tab once daily [Active]; levocetirizine 5 mg Oral tab 1 tab once daily [Active]; montelukast Oral [Active]; Vitamin Oral tab 1 tab once daily [Active]; - PMHx: 09:33 Miscarriage on 07/12; uterine fibroids; hb - PSHx: 09:33 D \T\ C; hb - Immunization history:: Adult Immunizations up to date. - Social history:: Smoking status: Patient denies any tobacco usage or history of. ROS: 11:11 Constitutional: Negative for fever, chills, and weight loss, Neck: Negative for injury, kb pain, and swelling, Cardiovascular: Negative for chest pain, palpitations, and edema, Respiratory: Negative for shortness of breath, cough, wheezing, and pleuritic chest pain, Abdomen/GI: Negative for abdominal pain, nausea, vomiting, diarrhea, and constipation, Back: Negative for injury and pain, MS/Extremity: Negative for injury and deformity, Skin: Negative for injury, rash, and discoloration, Neuro: Negative for headache, weakness, numbness, tingling, and seizure. 11:11 : Positive for pelvic pain, vaginal bleeding. Exam: 11:14 Constitutional: This is a well developed, well nourished patient who is awake, alert, kb and in no acute distress. Head/Face: Normocephalic, atraumatic. Chest/axilla: Normal chest wall appearance and motion. Nontender with no deformity. No lesions are appreciated. Cardiovascular: Regular rate and rhythm with a normal S1 and S2. No gallops, murmurs, or rubs. Normal PMI, no JVD. No pulse deficits. Respiratory: Lungs have equal breath sounds bilaterally, clear to auscultation and percussion. No rales, rhonchi or wheezes noted. No increased work of breathing, no retractions or nasal flaring. Back: No spinal tenderness. No costovertebral tenderness. Full range of motion. Skin: Warm, dry with normal turgor. Normal color with no rashes, no lesions, and no evidence of cellulitis. MS/ Extremity: Pulses equal, no cyanosis. Neurovascular intact. Full, normal range of motion. Neuro: Awake and alert, GCS 15, oriented to person, place, time, and situation. Cranial nerves II-XII grossly intact. Motor strength 5/5 in all extremities. Sensory grossly intact. Cerebellar exam normal. Normal gait. 11:14 Abdomen/GI: Inspection: abdomen appears normal, Bowel sounds: normal, in all quadrants, Palpation: nontender, in all quadrants, mass, of the suprapubic area. Vital Signs: 09:29 BP 126 / 80; Pulse 97; Resp 16; Temp 97.2; Pulse Ox 100% on R/A; Weight 63.5 kg; Height hb 5 ft. 2 in. (157.48 cm); Pain 0/10; 11:39 BP 122 / 76; Pulse 91; Resp 18; Pulse Ox 100% on R/A; ph 09:29 Body Mass Index 25.61 (63.50 kg, 157.48 cm) hb MDM: 10:17 Patient medically screened. kb 11:03 Data reviewed: vital signs, nurses notes. Data interpreted: Pulse oximetry: on room air kb is 100 %. Interpretation: normal. 11:54 Counseling: I had a detailed discussion with the patient and/or guardian regarding: the kb historical points, exam findings, and any diagnostic results supporting the discharge/admit diagnosis, lab results, the need for outpatient follow up, an OB/Gyne specialist, to return to the emergency department if symptoms worsen or persist or if there are any questions or concerns that arise at home. 11/29 09:37 Order name: CBC with Diff kb 11/29 09:37 Order name: Basic Metabolic Panel; Complete Time: 11:54 kb 11/29 09:37 Order name: IV Start; Complete Time: 11:44 kb 11/29 09:37 Order name: Type And Screen kb Administered Medications: No medications were administered Disposition: 19:07 Co-signature as Attending Physician, Grayson Mercedes MD Available for consultation in ps1 the ED. . Disposition: 11/30/19 11:54 Discharged to Home. Impression: Anemia, unspecified. - Condition is Stable. - Discharge Instructions: Anemia, Nonspecific. - Medication Reconciliation Form, Thank You Letter, Antibiotic Education, Prescription Opioid Use form. - Follow up: Emergency Department; When: As needed; Reason: Worsening of condition. Follow up: Private Physician; When: 2 - 3 days; Reason: Recheck today's complaints, Continuance of care, Re-evaluation by your physician. Signatures: Dispatcher [employer] EDOK Chelsea Barry, OXYGEN PLANT OPERATORYvesC OXYGEN PLANT OPERATOR-Nanci Nichols RN RN Flaca Chu, Grayson Carmichael RN, MD MD ps1 Corrections: (The following items were deleted from the chart) 12:12 11:54 11/30/2019 11:54 Discharged to Home. Impression: Anemia, unspecified. Condition ph is Stable. Forms are Medication Reconciliation Form, Thank You Letter, Antibiotic Education, Prescription Opioid Use. Follow up: Emergency Department; When: As needed; Reason: Worsening of condition. Follow up: Private Physician; When: 2 - 3 days; Reason: Recheck today's complaints, Continuance of care, Re-evaluation by your physician. kb
--- NOTE | 2019-11-30 11:55 | ER ---
Nurse's Notes [facility] Name: Lubna Joe Age: 34 yrs Sex: Female : 1985 Arrival Date: 11/30/2019 Time: 09:07 Bed 19 Private MD: GREGORY LEMOS Diagnosis: Anemia, unspecified Presentation: 11/29 09:29 Chief complaint: Seen on 11/23 by her OBGYN in [place] for heavy vaginal bleeding r/t hb uterine fibroids x 4 months, instructed to come to ED today for blood transfusion. Coronavirus screen: Proceed with normal triage. Ebola Screen: No symptoms or risks identified at this time. Initial Sepsis Screen: Does the patient meet any 2 criteria? No. Patient's initial sepsis screen is negative. Does the patient have a suspected source of infection? No. Patient's initial sepsis screen is negative. Risk Assessment: Do you want to hurt yourself or someone else? Patient reports no desire to harm self or others. Onset of symptoms was November 30, 2019. 09:29 Method Of Arrival: Ambulatory hb 09:29 Acuity: LEONEL 3 hb Historical: - Allergies: 09:33 No Known Allergies; hb - Home Meds: 09:33 ferrous sulfate 324 mg (65 mg iron) Oral chew [Active]; Sprintec (28) 0.25-35 mg-mcg hb oral tab 1 tab once daily [Active]; levocetirizine 5 mg Oral tab 1 tab once daily [Active]; montelukast Oral [Active]; Vitamin Oral tab 1 tab once daily [Active]; - PMHx: 09:33 Miscarriage on 07/12; uterine fibroids; hb - PSHx: 09:33 D \T\ C; hb - Immunization history:: Adult Immunizations up to date. - Social history:: Smoking status: Patient denies any tobacco usage or history of. Screenin:38 Abuse screen: Denies threats or abuse. Denies injuries from another. Nutritional ph screening: No deficits noted. Tuberculosis screening: No symptoms or risk factors identified. Fall Risk None identified. Assessment: 11:36 General: Appears in no apparent distress. comfortable, well groomed, Behavior is calm, ph cooperative, appropriate for age, Denies fever, feeling ill. Pain: Denies pain. Neuro: Level of Consciousness is awake, alert, obeys commands, Oriented to person, place, time, situation, Reports dizziness. Cardiovascular: Reports fatigue, lightheadedness, shortness of breath, Denies chest pain, nausea, vomiting, Capillary refill < 3 seconds in bilateral fingers Patient's skin is warm and dry. Respiratory: Reports shortness of breath on exertion Airway is patent Respiratory effort is even, unlabored, Respiratory pattern is regular, symmetrical. GI: No signs and/or symptoms were reported involving the gastrointestinal system. : Reports vaginal bleeding that is moderate flow. Derm: Skin is intact, is healthy with good turgor, Skin is pink, warm \T\ dry. 12:11 Reassessment: Patient appears in no apparent distress at this time. Patient and/or ph family updated on plan of care and expected duration. Pain level reassessed. Patient is alert, oriented x 3, equal unlabored respirations, skin warm/dry/pink. Pt d/c home. Vital Signs: 09:29 BP 126 / 80; Pulse 97; Resp 16; Temp 97.2; Pulse Ox 100% on R/A; Weight 63.5 kg; Height hb 5 ft. 2 in. (157.48 cm); Pain 0/10; 11:39 BP 122 / 76; Pulse 91; Resp 18; Pulse Ox 100% on R/A; ph 09:29 Body Mass Index 25.61 (63.50 kg, 157.48 cm) hb ED Course: 09:07 Patient arrived in ED. am2 09:07 GREGORY LEMOS is Private Physician. am2 09:10 Chelsea Barry [facility]C [facility] kb 09:10 Grayson Mercedes MD is Attending Physician. kb 09:32 Triage completed. hb 09:33 Arm band placed on. hb 11:15 Inserted saline lock: 22 gauge in right antecubital area, using aseptic technique. ph Blood collected. 11:35 Nanci Bruno RN is Primary Nurse. ph 11:38 Patient has correct armband on for positive identification. Bed in low position. Call ph light in reach. Side rails up X 1. Pulse ox on. NIBP on. Door closed. Noise minimized. Warm blanket given. 12:11 No provider procedures requiring assistance completed. IV discontinued, intact, ph bleeding controlled, No redness/swelling at site. Pressure dressing applied. Administered Medications: No medications were administered Outcome: 11:54 Discharge ordered by . elizabeth 12:11 Discharged to home ambulatory. ph 12:11 Condition: good 12:11 Discharge instructions given to patient, Instructed on discharge instructions, follow up and referral plans. Demonstrated understanding of instructions, follow-up care. 12:12 Patient left the ED. ph Signatures: Chelsea Barry, JHON-C JHON-Nanci Nichols RN RN Flaca Friedman RN RN Gretchen Haque am
[2019-11-30 12:59] LABS: Anisocytosis 1+; Blood Morphology Comment NOTED (NOT SEEN); Hypochromasia 1+; Platelet Estimate ADEQ
[2019-11-30 13:10] VITALS: TEMP 97.2; O2SAT 100
[2019-11-30 13:11] VITALS: BP 122/76
== END 2019-11-30 12:12 | disposition home or self-care (01) ==
LOC: ER 09:02
DX: D64.9 Anemia, unspecified (principal)
CPT/HCPCS: 36415; 80048; 85025; 86850; 86900; 86901; 99283

== ENCOUNTER 2020-03-22 18:11 | Emergency (ER) | payer OTHER ==
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
--- OUTSIDE RECORDS SUMMARY | 2020-03-22 18:13 | XMS REPORT | Continuity of Care Document ---
:1985 Author Organization [facility] Care Team Providers Name Role Phone [facility] Unavailable Un available Problems Problem Status Onset Classification Date Comments Sourc e Date Reported Menorrhagia Active Problem 12/18/2019 Alexand ra with regular Pellice na cycle Fibroid Active Problem 12/18/2019 Felipa Pellicena Iron deficiency Active Problem 12/18/2019 Amelia kathleen anemia due to Pellic karlos chronic blood loss Medications Medication Details Route Status Patient Ordering Order Source Instructions Provider Date Folic Acid not NA Active Pellicena Felipa defined Pellicena Montelukast not NA Active Pellicena Felipa Sodium defined Pellicena Sprintec 28 not NA Active Pell[place]ena Felipa defined Pellicena Ferrous not NA Active Pellicena Felipa Sulfate defined Pellicena Ibuprofen not NA Active [place]ell[place]ena Felipa defined Pellicena Levocetirizine not NA Active Pellicena Alexand ra -Loratadine defined Pellicena Ascorbic Acid not NA Active Pellicena Yousuf a defined Pellicena Allergies, Adverse Reactions, Alerts Substance Category Reaction Severity Reaction Status Date Comments S ource type Reported N.K.D.A. Adverse Info Not Adverse Manuel jam Reaction Available Reaction 0 Britni icena Immunizations No Data Provided for This Section Results No Data Provided for This Section Pathology Reports No Data Provided for This Section Diagnostic Reports No Data Provided for This Section Consultation Notes No Data Provided for This Section Discharge Summaries No Data Provided for This Section History and Physicals No Data Provided for This Section Vital Signs Vital Sign Value Date Comments Source Weight 142 11/24/2019 Felipa Pellicena Height 60.5 11/24/2019 Felipa Pellicena Temperature Oral (F) 97.1 F 11/24/2019 Alexand ra [place] Diastolic (mm Hg) 62 11/24/2019 Felipa Pellicena Systolic (mm Hg) 108 11/24/2019 Felipa Pellicena Encounters No Data Provided for This Section Procedures No Data Provided for This Section Assessment and Plan No Data Provided for This Section Plan of Care No Data Provided for This Section Social History No Data Provided for This Section Family History No Data Provided for This Section Advance Directives No Data Provided for This Section Functional Status No Data Provided for This Section
--- OUTSIDE RECORDS SUMMARY | 2020-03-22 18:13 | XMS REPORT | Continuity of Care Document ---
:1985 Author Organization [facility] t Address [address] [place] [address] Care Team Providers Name Role Phone Nohelia Guerra MD Attending Clinician Christos Smith MD Attending Clinician Problems Condition Condition Condition Status Onset Resolution Last Treating Co mments Source Name Details Category Date Date Treatment Clinician Date Menorrhagi Problem Active 2019-12-18 M emoria a with 04:10:31 l regular [place] cycle Menorrhagi a with regular cycle Active Problem 12/18/2019 Felipa Pellicena Fibroid Problem Active 2019-12-18 Damian osman 04:10:31 l Fibroid [place] Active Problem 12/18/2019 Felipa Pellicena Iron Problem Active 2019-12-18 Memor ia deficiency 04:10:31 l anemia due Iron Shimon n to chronic deficiency blood loss anemia due to chronic blood loss Active Problem 12/18/2019 Felipa Pellicena Allergies, Adverse Reactions, Alerts Allergy Allergy Status Severity Reaction(s) Onset Inactive Treating Comm ents Source Name Type Date Date Clinician N.K.D.A. N.K.D.A. Active Info Not Damian osman Available 4-29 l 00:00: [place] 00 Medications Ordered Filled Start Stop Current Ordering Indication Dosage Frequency Signature Comments Components Source Medication Medication Date Date Medication? Clinician (SIG) Name Name Folic Acid Yes Felipa not Me moria 12-17 Pellicena defined l 04:10: [place] 31 Montelukast Yes Felipa not M emoria Sodium 12-17 Pellicena defined l 04:10: [place] 31 Sprintec 28 Yes Felipa not M emoria - Pell[place]ena defined l 04:10: [place] 31 Ferrous 2019- Yes Felipa not Memor ia Sulfate 12-17 Pellicena defined l 04:10: [place] 31 Ibuprofen Yes Felipa not Mem oria 12-17 Pellicena defined l 04:10: [place] 31 Levocetiriz Yes Felipa not M emoria ine-Loratad 12-17 [place]ena defined l ine 04:10: [place] 31 Ascorbic Yes Felipa not Damian osman Acid 12-17 Pellicena defined l 04:10: [place] 31 Vital Signs Vital Name Observation Time Observation Value Comments Source Weight 2019-11-24 16:00:00 [facility] [place] Height 2019-11-24 16:00:00 [facility] [place] Temperature Oral (F) 2019-11-24 16:00:00 97.1 F [facility] [place] Diastolic (mm Hg) 2019-11-24 16:00:00 Mem orial El Systolic (mm Hg) 2019-11-24 16:00:00 Damian rial El Procedures This patient has no known procedures. Encounters Start End Encounter Admission Attending Care Care Encounter Source Date/Time Date/Time Type Type Clinicians Facility Department ID 2020-02-07 2020-02-07 Office Nohelia Guerra [facility] [id number] 09:11:07 10:16:11 Visit Cam Rector [id number] [place] [id number] Professio [phone] [address] [place] [address] 2020-01-18 2020-01-18 Patient Nohelia Guerra [facility] [id number] 00:00:00 00:00:00 Secure Msg Cam Rector [id number] [place] [id number] Professio [phone] [address] [place] [address] 2020-01-18 2020-01-18 Patient Nohelia Guerra [facility] [id number] 00:00:00 00:00:00 Secure Msg Cam Rector [id number] [place] [id number] Professio [phone] nal 134 Building 2020-01-16 2020-01-16 Patient JOSE ALBERTO Smith [id number] 00:00:00 00:00:00 Secure Msg Briandiful A [facility] [id number] [place] [id number] Professio [phone] nal 044 Office Building One 2019-12-01 2019-12-01 Outpatient [facility] [id number] eClinic 16:51:00 16:51:00 chrsitos Scott M.D., M.D., PA PA 2019-12-01 2019-12-01 Outpatient [facility] [id number] eClinic 09:54:00 09:54:00 christos Scott M.D., M.D., PA PA 2019-12-01 2019-12-01 Outpatient [facility] [id number] eClinic 09:54:00 09:54:00 christos Scott M.D., M.D., PA PA 2019-11-30 2019-11-30 Outpatient [facility] [id number] eClinic 16:27:00 16:27:00 christos Scott M.D., M.D., PA PA 2019-11-30 2019-11-30 Outpatient [facility] [id number] eClinic 12:22:00 12:22:00 christos Scott M.D., M.D., PA PA 2019-11-24 2019-11-24 Outpatient [facility] [id number] eClinic 11:00:00 11:00:00 christos Scott M.D., M.D., PA PA Results This patient has no known results.
--- OUTSIDE RECORDS SUMMARY | 2020-03-22 18:13 | XMS REPORT | Summary of Care ---
:1985 Author Organization [facility] Address [address] [place] [address] Care Team Providers Name Role Phone Josh Smith MD Primary Care Provider Reason for Visit Reason Comments Appointment pre-op for myomectomy Encounter Details Date Type Department Care Team Description 01/03/2020 Telephone [facility] Women's GuerraNohelia MD Appointment (pre-op Healthcare- [address] for myomectomy) [address] [place] [address] DR[address] Oquendo, [address] [place], [place] [phone] Allergies No Known Allergiesdocumented as of this encounter (statuses as of 01/03/2020) Medications Medication Sig Dispensed Refills Start Date [...] as of this encounter (statuses as of 01/03/2020) Active Problems Problem Noted Date New onset [...] as of this encounter (statuses as of 01/03/2020) Resolved Problems Problem Noted Date Resolved Date Anemia 08/06/2019 08/07/2019 13 weeks gestation of 07/07/2019 07/26/20 19 Abdominal cramping affecting 07/07/2019 1 09/07/2018 Threatened , antepartum 07/07/2019 07/26/20 19 Abnormal maternal glucose tolerance, antepartum 07/07/2019 08/23/2019 Iron deficiency anemia 04/20/2018 07/07/2019 documented as of this encounter (statuses as of 01/03/2020) Immunizations Name Administration Dates Next Due Influenza [...] Treatment Date Type Specialty Care Team Description 01/17/2020 Office Visit Obstetrics & Gynecology Caren Guerra MD [address] [place] [address] DR[address] Baum [address] [place] [address] 15 [phone] 05/08/2020 Office Visit Obstetrics & Gynecology Caren Guerra MD [address] [facility] [address] Baum [address] [place] [address] 15 Health Maintenance Due Date Last Done Comments VARICELLA VACCINES (1 of 2 - 1985 2-dose childhood series) DTaP,Tdap,and Td Vaccines (1 - 11/28/1995 Tdap) Depression Screening 08/06/2020 08/06/2019 PAP SMEAR 05/19/2022 05/19/2019 INFLUENZA VACCINE Completed 06/09/2019 PNEUMOCOCCAL 0-64 YEARS COMBINED Aged Out No longer eligible based on SERIES patient's age to complete this topic documented as of this encounter Results Not on filedocumented in this encounter Insurance Payer Benefit Plan / Group Subscriber ID Effective Dates Phone Address Type CORINE POOL II [id number] 2019-Present H MO/PPO/POS documented as of this encounter
--- OUTSIDE RECORDS SUMMARY | 2020-03-22 18:14 | XMS REPORT | Summary of Care ---
:1985 Author Organization [facility] - [facility] Address [address] [place] [address] Care Team Providers Name Role Phone Josh Smith MD Primary Care Provider Reason for Visit Reason Comments Results Encounter Details Date Type Department Care Team Description 01/11/2020 Telephone ACCESS CENTER Fátima Beckett, RN Results [address] [address] [place] [phone] Allergies No Known Allergiesdocumented as of this encounter (statuses as of 01/11/2020) Medications Medication Sig Dispensed Refills Start Date End Date Status Ascorbic Acid Take 1 30 tablet 3 08/06/2019 Suspe nded (VITAMIN C) 500 mg TAB-CAP/M2 by ChewIndications: mouth daily. Retained products of conception after miscarriage, S/P D&C (status post dilation and curettage) Additional information norgestimate-ethinyl estradiol Take 1 tablet by 4 Package 3 Suspended 0.25-35 mg-mcg per mouth daily. tabletIndications: Encounter for BCP ( control pills) initial prescription Additional information ibuprofen 600 mg Take 1 tablet by 30 tablet 1 10/28/2019 Suspended tabletIndications: Dysmenorrhea mouth every 6 (six) hours as needed for Pain (scale 1-3) or Pain (scale 4-6). Additional information norgestimate-ethinyl estradiol Take 2 tablets by 2 Package 0 0 11/16/2019 Suspended 0.25-35 mg-mcg per mouth daily. tabletIndications: Iron deficiency anemia due to chronic blood loss, Abnormal uterine bleeding Additional information proMETHazine 12.5 mg Take 2 tablets by 30 tablet 1 11/16/2019 Suspended tabletIndications: Abnormal mouth every 6 (six) uterine bleeding hours as needed for Nausea and Vomiting (N/V). Additional information foLIC acid 1 mg Take 1 tablet by 30 tablet 3 11/16/2019 Suspended tabletIndications: Retained mouth daily. products of conception after miscarriage, S/P D&C (status post dilation and curettage) Additional information ergocalciferol, vitamin D2, Take by mouth. 0 Suspended (VITAMIN D ORAL) LEVOCETIRIZINE 5 mg TAKE 1 TABLET BY 30 tablet 5 01/10/2020 Suspended tabletIndications: Acute MOUTH ONCE DAILY IN allergic rhinitis THE EVENING Additional information MONTELUKAST 10 mg TAKE 1 TABLET BY 30 tablet 5 01/10/2020 Suspended tabletIndications: Acute MOUTH ONCE DAILY IN allergic rhinitis THE EVENING Additional information documented as of this encounter (statuses as of 01/11/2020) Active Problems Problem Noted Date Abnormal uterine bleeding 01/05/2020 Overview: Added automatically from request for jeannette leticia [id number] New onset of headaches 09/26/2019 Encounter for BCP ( control pills) initial prescr iption 09/06/2019 Dysmenorrhea 09/06/2019 Intramural leiomyoma of uterus 08/07/2019 Chronic pain of multiple joints 04/20/2018 Seasonal allergies History of blood transfusion Overview: 09/23/2019 documented as of this encounter (statuses as of 01/11/2020) Resolved Problems Problem Noted Date Resolved Date [...] as of this encounter (statuses as of 01/11/2020) Immunizations Name Administration Dates Next Due Influenza [...] been in contact with No / Unsure 01/11/2020 8:04 AM CDT someone who was confirmed or suspected to have Coronavirus / COVID-19? documented as of this encounter Last Filed Vital Signs Not on filedocumented in this encounter Plan of Treatment Date Type Specialty Care Team Description 01/21/2020 Nurse Visit Obstetrics & Gynecology Nurse, [facility] Women' s Health 02/07/2020 Office Visit Obstetrics & Gynecology Caren Guerra MD [address] [address] [place] [address] [phone] 05/08/2020 Office Visit Obstetrics & Gynecology Caren Guerra MD [address] [address] [place] [address] 15 [phone] Health Maintenance Due Date Last Done Comments VARICELLA VACCINES (1 of 2 - 1985 2-dose childhood series) DTaP,Tdap,and Td Vaccines (1 - 11/28/1995 Tdap) Depression Screening 01/10/2021 01/11/2020 PAP SMEAR 05/19/2022 05/19/2019 INFLUENZA VACCINE Completed 06/09/2019 PNEUMOCOCCAL 0-64 YEARS COMBINED Aged Out No longer eligible based on SERIES patient's age to complete this topic documented as of this encounter Results Not on filedocumented in this encounter Insurance Payer Benefit Plan / Group Subscriber ID Effective Dates Phone Address Type CORINE POOL II [id number] 2019-Present H MO/PPO/POS documented as of this encounter
--- OUTSIDE RECORDS SUMMARY | 2020-03-22 18:14 | XMS REPORT | Summary of Care ---
:1985 Author Organization [facility] Address [address] [place] [address] Care Team Providers Name Role Phone Josh Smith MD Primary Care Provider Reason for Visit Reason Comments Refill Request Encounter Details Date Type Department Care Team Description 01/10/2020 Refill [facility] Family Medicine Josh Cota MD Refill Request - [address] [place] [address] [place] [address] [phone] Allergies No Known Allergiesdocumented as of this encounter (statuses as of 01/10/2020) Medications Medication Sig Dispensed Refills Start Date End Date Status Ascorbic Acid Take 1 30 tablet 3 08/06/2019 Activ e (VITAMIN C) 500 mg TAB-CAP/M2 by ChewIndications: mouth daily. Retained products of conception after miscarriage, S/P D&C (status post dilation and curettage) norgestimate-ethinyl Take 1 tablet 4 Package 3 09/06/2019 Active estradiol 0.25-35 by mouth mg-mcg per daily. tabletIndications: Encounter for BCP ( control pills) initial prescription ibuprofen 600 mg Take 1 tablet 30 tablet 1 10/28/2019 Active tabletIndications: by mouth every Dysmenorrhea 6 (six) hours as needed for Pain (scale 1-3) or Pain (scale 4-6). norgestimate-ethinyl Take 2 tablets 2 Package 0 11/16/2019 Active estradiol 0.25-35 by mouth mg-mcg per daily. tabletIndications: Iron deficiency anemia due to chronic blood loss, Abnormal uterine bleeding proMETHazine 12.5 mg Take 2 tablets 30 tablet 1 11/16/2019 Active tabletIndications: by mouth every Abnormal uterine 6 (six) hours bleeding as needed for Nausea and Vomiting (N/V). foLIC acid 1 mg Take 1 tablet 30 tablet 3 11/16/2019 Active tabletIndications: by mouth Retained products of daily. conception after miscarriage, S/P D&C (status post dilation and curettage) ergocalciferol, Take by 0 Acti ve vitamin D2, (VITAMIN mouth. D ORAL) LEVOCETIRIZINE 5 mg TAKE 1 TABLET 30 tablet 5 01/10/2020 Active tabletIndications: BY MOUTH ONCE Acute allergic DAILY IN THE rhinitis EVENING MONTELUKAST 10 mg TAKE 1 TABLET 30 tablet 5 01/10/2020 Active tabletIndications: BY MOUTH ONCE Acute allergic DAILY IN THE rhinitis EVENING levocetirizine 5 mg 0 Discontinued tablet 0 documented as of this encounter (statuses as of 01/10/2020) Active Problems Problem Noted Date Abnormal uterine bleeding 01/05/2020 Overview: Added automatically from request for jeannette kelly [id number] New onset of headaches 09/26/2019 Encounter for BCP ( control pills) initial prescr iption 09/06/2019 Dysmenorrhea 09/06/2019 Intramural leiomyoma of uterus 08/07/2019 Chronic pain of multiple joints 04/20/2018 Seasonal allergies History of blood transfusion Overview: 09/23/2019 documented as of this encounter (statuses as of 01/10/2020) Resolved Problems Problem Noted Date Resolved Date [...] as of this encounter (statuses as of 01/10/2020) Immunizations Name Administration Dates Next Due Influenza [...] been in contact with No / Unsure 01/07/2020 3:55 PM CDT someone who was confirmed or suspected to have Coronavirus / COVID-19? documented as of this encounter Last Filed Vital Signs Not on filedocumented in this encounter Plan of Treatment Date Type Specialty Care Team Description 01/11/2020 Hospital Encounter Surgery Nohelia Guerra MD Intramural [address] [place] [address] Oliv[address] [place], [place] [address] [phone] 01/11/2020 Anesthesia Event Surgery Jn Linares, [address] [phone] 01/11/2020 Surgery Surgery Nohelia Guerra M D EXPLORATORY [address] [place] [address] Olivares [place] [address] 15 [phone] 01/21/2020 Nurse Visit Obstetrics & Nurse, [facility] Women's Gynecology Health 02/07/2020 Office Visit Obstetrics & Nohelia Guerra M D Gynecology [address] [place] [address] [address] [place], [place] [address] [phone] 05/08/2020 Office Visit Nohelia Lopez M D Gynecology [address] [place] [address] [address] [place], [place] [address] [phone] Health Maintenance Due Date Last Done Comments [...] filedocumented in this encounter Visit Diagnoses Diagnosis Acute allergic rhinitis documented in this encounter Insurance Payer Benefit Plan / Group Subscriber ID Effective Dates Phone Address Type CORINE POOL II [id number] 2019-Present H MO/PPO/POS documented as of this encounter
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
--- OUTSIDE RECORDS SUMMARY | 2020-03-22 18:14 | XMS REPORT | Summary of Care ---
:1985 Author Organization [facility] - [facility] Address [address] [place] [address] Care Team Providers Name Role Phone Josh Smith MD Primary Care Provider Encounter Details Date Type Department Care Team Description 12/08/2019 Patient Secure Msg [facility] Women's GuerraNohelia MD [facility]- [address]quendo, [address] [place] [address] [place] [address] [phone] Allergies No Known Allergiesdocumented as of this encounter (statuses as of 01/08/2020) Medications Medication Sig Dispensed Refills Start Date [...] prescription levocetirizine 5 mg 0 Active tablet ibuprofen 600 mg Take 1 tablet 30 [...] S/P D&C (status post dilation and curettage) montelukast 10 mg TAKE 1 TABLET 0 07/30/2019 0 Discontinued tablet BY MOUTH ONCE 20 DAILY IN THE EVENING ferrous sulfate 325 Take 1 60 capsule 3 09/28/2019 01/07/20 Discontinued mg (65 mg iron) SR capsule by 20 capsule mouth 3 (three) times daily. ascorbic acid, Take 1 tablet 30 tablet 3 11/16/2019 01/04/20 Discontinued vitamin C, 500 mg by mouth 20 (D uplicate) tabletIndications: daily. Iron deficiency anemia due to chronic blood loss documented as of this encounter (statuses as of 01/08/2020) Active Problems Problem Noted Date Abnormal uterine bleeding 01/05/2020 Overview: Added automatically from request for jeannette leticia [id number] New onset of headaches 09/26/2019 Encounter for BCP ( control pills) initial prescr iption 09/06/2019 Dysmenorrhea 09/06/2019 Intramural leiomyoma of uterus 08/07/2019 Chronic pain of multiple joints 04/20/2018 Seasonal allergies History of blood transfusion Overview: 09/23/2019 documented as of this encounter (statuses as of 01/08/2020) Resolved Problems Problem Noted Date Resolved Date [...] as of this encounter (statuses as of 01/08/2020) Immunizations Name Administration Dates Next Due Influenza [...] Description 01/10/2020 Laboratory Only Clinical Medical Only, [facility] Test Laboratory 01/11/2020 Hospital Encounter Surgery Nohelia Guerra MD Intramural [address] [place] [address] [place] [phone] 15 01/11/2020 Anesthesia Event Surgery Jn Linares, HEIDI [address] [place] [phone] 01/11/2020 Surgery Surgery Nohelia Guerra M D EXPLORATORY [address] [place] [address] Olivares [place] [phone] 15 01/21/2020 Nurse Visit Obstetrics & Nurse, [facility] 02/07/2020 Office Visit Obstetrics & Nohelia Guerra M D Gynecology [address] [place] [address] [address]. Olivares [place], [place] [address] 05/08/2020 Office Visit Obstetrics & Nohelia Guerra M D Gynecology [address] [place] [address] DR. Olivares [place], [place] [address] [phone] Health Maintenance Due Date Last Done Comments [...] Dates Phone Address Type CORINE POOL II [id number] 2019-Present H MO/PPO/POS documented as of this encounter
--- OUTSIDE RECORDS SUMMARY | 2020-03-22 18:14 | XMS REPORT | Summary of Care ---
:1985 Author Organization [facility] Address [address] [place] [address] Care Team Providers Name Role Phone Josh Smith MD Primary Care Provider Reason for Visit Auth/Cert Status Reason Specialty Diagnoses / Referred By Referred To Procedures Contact Contact Clinical Medical Diagnoses Abnormal uterine and vaginal bleeding, unspecified Abnormal uterine and vaginal bleeding, unspecified [N93.9] [facility] Laboratory Procedures COVID-19 (ID NOW RAPID TESTING) COVID [address] [place] [address] Encounter Details Date Type Department Care Team Description 01/10/2020 Laboratory Only [facility] Nohelia Guerra M D [address] [facility] [facility] [place] [address] Pre-operative anxiety (Primary Dx); Phlebotomy Only, [facility] Test Retained products of conception after mi scarriage [facility] [address] [place] [phone] Allergies No Known Allergiesdocumented as of this encounter (statuses as of 01/11/2020) Medications Medication Sig Dispensed Refills Start Date End Date Status Ascorbic Acid (VITAMIN Take 1 TAB-CAP/M2 30 tablet 3 0 Active C) 500 mg by mouth daily. [...] Pain (scale 4-6). norgestimate-ethinyl Take 2 tablets by 2 Package 0 11/16/2019 Active estradiol 0.25-35 mouth daily. mg-mcg per tabletIndications: Iron deficiency anemia due to chronic blood loss, Abnormal uterine bleeding proMETHazine 12.5 mg Take 2 tablets by 30 tablet 1 11/16/2019 Active tabletIndications: mouth every 6 Abnormal uterine (six) hours as bleeding needed for Nausea and Vomiting (N/V). foLIC acid 1 mg Take 1 tablet by 30 tablet 3 11/16/2019 Active tabletIndications: mouth daily. Retained products of conception after miscarriage, S/P D&C (status post dilation and curettage) ergocalciferol, vitamin Take by mouth. 0 Active D2, (VITAMIN D ORAL) LEVOCETIRIZINE 5 mg TAKE 1 TABLET BY 30 tablet 5 01/10/2020 Active tabletIndications: MOUTH ONCE DAILY Acute allergic rhinitis IN THE EVENING MONTELUKAST 10 mg TAKE 1 TABLET BY 30 tablet 5 01/10/2020 Active tabletIndications: MOUTH ONCE DAILY Acute allergic rhinitis IN THE EVENING documented as of this encounter (statuses as of 01/11/2020) Active Problems Problem Noted Date Abnormal uterine bleeding 01/05/2020 Overview: Added automatically from request for jeannette kelly [id number] New onset of headaches 09/26/2019 Encounter for [...] 01/21/2020 Nurse Visit Obstetrics & Gynecology Nurse, [facility] Women' s Health 02/07/2020 Office Visit Obstetrics & Gynecology Caren Guerra MD [address] [place] [address] DR[address]um [address] [place] [address] 15 [phone] 05/08/2020 Office Visit Obstetrics & Gynecology Caren Guerra MD [address] [facility] [address] [place], [place] [address] Health Maintenance Due Date [...] Name Priority Date/Time Associated Diagnosis Comme nts TOTAL BETA HCG Routine 01/10/2020 9:43 AM Retained products o f Results for this ASSAY CDT conception after procedure a re in miscarriage the results section. COVID-19 (ID NOW Routine 01/10/2020 9:42 AM Pre-operative Res ults for this RAPID TESTING) CDT anxiety procedure are in the results section. documented in this encounter Results HCG, QUANTITATIVE, (01/10/2020 9:43 AM CDT) Pathologist Sig nature BETA HCG <2.39 Non- female [facility] and male patients: <5 LABORATORY mIU/mL Specimen Blood Narrative Performed At [facility] LABORATORY Gestational Age Range (mIU/mL) 1-10 Weeks [id number] 11-15 Weeks [id number] 16-22 Weeks [id number] 23-40 Weeks 1531-894338 Biotin has been reported to cause a negative bias, interpret results relative to patient's use of biotin. Performing Organization Address City/State/Zipcode Phone Number [facility] CLIA: [id number], [address] [place], [place] [address] COVID-19 (ID NOW RAPID TESTING) (01/10/2020 9:42 AM CDT) SARS-CoV-2 Rapid ID Not Detected Not Detected [facility] LABORATORY Specimen Swab - NASOPHARYNGEAL SWAB Narrative Performed At ID NOW COVID-19 Assay is an isothermal nucleic [facility] LAB[facility]ORY acid amplification test intended for the qualitative detection of nucleic acid from SARS-CoV-2 viral RNA in nasopharyngeal (GRIZZLY WORKER) specimens. It is used under Emergency Use Authorization (EUA) by FDA. The limit of detection (LOD) of the assay is 125 Genome Equivalents/mL. A positive result is indicative of the presence of SARS-CoV-2 RNA. Clinical correlation with patient history and other diagnostic information is necessary to determine patient infection status. A negative (Not Detected) result does not preclude SARS-CoV-2 infection. In patients with clinical symptoms and other tests that are consistent with SARS-CoV-2 infection, negative results should be treated as presumptive negative and a new specimen should be tested with alternative PCR molecular test. Invalid: Please collect a new specimen for repeat patient testing if clinically indicated. Performing Organization Address City/State/Zipcode Phone Number [facility] CLIA: [id number], [address] [place], [place] [address] documented in this encounter Visit Diagnoses Diagnosis Pre-operative anxiety - Primary Retained products of conception after mi scarriage documented in this encounter documented as of this encounter
--- OUTSIDE RECORDS SUMMARY | 2020-03-22 18:15 | XMS REPORT | Summary of Care ---
:1985 Author Organization [facility] - [address] [address] Care Team Providers Name Role Phone Josh Smith MD Primary Care Provider Reason for Visit Reason Comments Transition Of Care Encounter Details Date Type Department Care Team Description 01/14/2020 Transition of Care [facility] Birdie [place] [facility]- RN [address] [address] Allergies No Known Allergiesdocumented as of this encounter (statuses as of 01/14/2020) Medications Medication Sig Dispensed Refills Start Date End Date Status Ascorbic Acid (VITAMIN Take 1 30 tablet 3 08/06/2019 Active C) 500 mg TAB-CAP/M2 by ChewIndications: mouth daily. Retained products of conception after miscarriage, S/P D&C (status post dilation and curettage) norgestimate-ethinyl Take 1 tablet 4 Package 3 09/06/2019 Active estradiol 0.25-35 by mouth daily. mg-mcg per tabletIndications: Encounter for BCP ( control pills) initial prescription ibuprofen 600 mg Take 1 tablet 30 tablet 1 10/28/2019 Active tabletIndications: by mouth every Dysmenorrhea 6 (six) hours as needed for Pain (scale 1-3) or Pain (scale 4-6). proMETHazine 12.5 mg Take 2 tablets 30 tablet 1 11/16/2019 Active tabletIndications: by mouth every Abnormal uterine 6 (six) hours bleeding as needed for Nausea and Vomiting (N/V). foLIC acid 1 mg Take 1 tablet 30 tablet 3 11/16/2019 Active tabletIndications: by mouth daily. Retained products of conception after miscarriage, S/P D&C (status post dilation and curettage) ergocalciferol, Take by mouth. 0 Active vitamin D2, (VITAMIN D ORAL) LEVOCETIRIZINE 5 mg TAKE 1 TABLET 30 tablet 5 01/10/2020 Active tabletIndications: BY MOUTH ONCE Acute allergic DAILY IN THE rhinitis EVENING MONTELUKAST 10 mg TAKE 1 TABLET 30 tablet 5 01/10/2020 Active tabletIndications: BY MOUTH ONCE Acute allergic DAILY IN THE rhinitis EVENING docusate 100 mg Take 1 capsule 60 capsule 1 01/13/2020 Active capsuleIndications: by mouth 2 Acute on chronic blood (two) times loss anemia, daily as needed Intramural leiomyoma for of uterus, Constipation. Dysmenorrhea, History of recent blood transfusion, Abnormal uterine bleeding, S/P exploratory laparotomy, Obesity (BMI 30-39.9), S/P myomectomy ferrous sulfate 325 mg Take 1 tablet 60 tablet 3 01/13/2020 Active (65 mg iron) by mouth 2 tabletIndications: (two) times Acute on chronic blood daily. loss anemia, Intramural leiomyoma of uterus, Dysmenorrhea, History of recent blood transfusion, Abnormal uterine bleeding, S/P exploratory laparotomy, Obesity (BMI 30-39.9), S/P myomectomy gabapentin 300 mg Take 1 capsule 15 capsule 0 01/13/202001/17 Active capsuleIndications: by mouth 3 Acute on chronic blood (three) times loss anemia, daily for 5 Intramural leiomyoma days. of uterus, Dysmenorrhea, History of recent blood transfusion, Abnormal uterine bleeding, S/P exploratory laparotomy, Obesity (BMI 30-39.9), S/P myomectomy HYDROcodone-acetaminop Take 1 tablet 15 tablet 0 01/13/2020 Active hen 5-325 mg by mouth every tabletIndications: 6 (six) hours Acute on chronic blood as needed for loss anemia, Pain (scale Intramural leiomyoma 7-10). of uterus, Dysmenorrhea, History of recent blood transfusion, Abnormal uterine bleeding, S/P exploratory laparotomy, Obesity (BMI 30-39.9), S/P myomectomy acetaminophen Take 2 tablets 30 tablet 1 01/13/2020 01/12/2021 Active (TYLENOL) 325 mg by mouth every tabletIndications: 6 (six) hours Acute on chronic blood as needed for loss anemia, Pain (scale Intramural leiomyoma 1-3) or Pain of uterus, (scale 4-6). Dysmenorrhea, History of recent blood transfusion, Abnormal uterine bleeding, S/P exploratory laparotomy, Obesity (BMI 30-39.9), S/P myomectomy simethicone 80 mg Take 1 tablet 60 tablet 1 01/13/2020 Active chewable by mouth 2 tabletIndications: (two) times Acute on chronic blood daily as needed loss anemia, for Gas. Intramural leiomyoma of uterus, Dysmenorrhea, History of recent blood transfusion, Abnormal uterine bleeding, S/P exploratory laparotomy, Obesity (BMI 30-39.9), S/P myomectomy documented as of this encounter (statuses as of 01/14/2020) Active Problems Problem Noted Date Obesity (BMI 30-39.9) 01/12/2020 S/P myomectomy 01/12/2020 S/P exploratory laparotomy 01/11/2020 Abnormal uterine bleeding 01/05/2020 Overview: Added automatically from request for jeannette leticia [id number] New onset of headaches 09/26/2019 Encounter for BCP ( control pills) initial prescr iption 09/06/2019 Dysmenorrhea 09/06/2019 Intramural leiomyoma of uterus 08/07/2019 Acute on chronic blood loss anemia 08/06/2019 Chronic pain of multiple joints 04/20/2018 Seasonal allergies History of recent blood transfusion Overview: 09/23/2019 documented as of this encounter (statuses as of 01/14/2020) Resolved Problems Problem Noted Date Resolved Date Postoperative anemia due to acute blood loss 08/07/2019 01/06/2020 Retained products of conception after miscarriage 07/26/2019 01/06/2020 13 weeks gestation of 07/07/2019 07/26/20 19 Abdominal cramping affecting 07/07/2019 1 09/07/2018 Threatened , antepartum 07/07/2019 07/26/20 19 Abnormal maternal glucose tolerance, antepartum 07/07/2019 08/23/2019 Iron deficiency anemia 04/20/2018 07/07/2019 documented as of this encounter (statuses as of 01/14/2020) Immunizations Name Administration Dates Next Due Influenza Virus Vaccine Quad .5 mL IM 6+ MO 06/09/2019 documented as of this encounter Social History Tobacco Use Types Packs/Day Years Used Date Never Smoker Smokeless Tobacco: Never Used Alcohol Use Drinks/Week oz/Week Comments No Education Answer Date Recorded What is the highest level of school you have completed or 12 th grade 01/11/2020 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 [place] [id number] 15 05/08/2020 Office Visit Obstetrics & Gynecology Caren Guerra MD [address] [facility] [facility] [address] [place], [place] [address] [phone] Health Maintenance Due Date Last Done Comments VARICELLA VACCINES (1 of 2 - 1985 2-dose childhood series) DTaP,Tdap,and Td Vaccines ( - 11/28/1995 Tdap) Depression Screening 01/10/2021 01/11/2020 PAP SMEAR 05/19/2022 05/19/2019 INFLUENZA VACCINE Completed 06/09/2019 PNEUMOCOCCAL 0-64 YEARS COMBINED Aged Out No longer eligible based on SERIES patient's age to complete this topic documented as of this encounter Results Not on filedocumented in this encounter Insurance Payer Benefit Plan / Group Subscriber ID Effective Dates Phone Address Type [place] II [id number] 2019-Present H MO/PPO/POS documented as of this encounter
--- OUTSIDE RECORDS SUMMARY | 2020-03-22 18:15 | XMS REPORT | Summary of Care ---
:1985 Author Organization [facility] - [facility] Address [address] [place] [id number] Care Team Providers Name Role Phone Josh Smith MD Primary Care Provider Reason for Referral (Routine) Status Reason Specialty Diagnoses / Referred By Referred To Procedures Contact Contact New Request Diagnoses Acute on chronic blood loss anemia Intramural leiomyoma of uterus Dysmenorrhea History of recent blood transfusion Abnormal uterine bleeding S/P exploratory laparotomy Obesity (BMI 30-39.9) S/P myomectomy Raisa Richard MD Lam, Vien Cam, MD Procedures DISCHARGE FOLLOW-UP: [facility] [address] SOLORZANO [address] [place], [place] [address] [place], [place] Phone: [phone] Phone: Fax: Reason for Visit Auth/Cert Status Reason Specialty Diagnoses / Procedures Referred By C ontact Referred To Contact Diagnoses Abnormal uterine and vaginal bleeding, unspecified Intramural leiomyoma of uterus N93.9 (ICD-10-CM) - Abnormal uterine and vaginal bleeding, unspecified D25.1 (ICD-10-CM) - Intramural leiomyoma of uterus Procedures [place] MYOMECTOMY 1-4,W/TOT 250GMS/<,ABD APPRCH [place] MYOMECTOMY 5/>,TOT>250 GMS,ABD APPRCH [id number] - [place] MYOMECTOMY 1-4,W/TOT 250GMS/<,ABD APPRCH [id number] - [place] MYOMECTOMY 5/>,TOT>250 [facility] Encounter Details Date Type Department Care Team Description 01/11/2020 - Hospital Encounter [facility] Medicine Surgery Caren Richard MD S/P myomectomy 01/13/2020 [address] [facility] [address] [place] [address] [facility] [address] [place] [address] [phone] Allergies No Known Allergiesdocumented as of this encounter (statuses as of 01/13/2020) Medications Medication Sig Dispensed Refills Start Date [...] ve vitamin D2, (VITAMIN mouth. D ORAL) docusate 100 mg Take 1 capsule 60 capsule 1 01/13/2020 Active capsuleIndications: by mouth 2 Acute on chronic (two) times blood loss anemia, daily as Intramural leiomyoma needed for of uterus, Constipation. Dysmenorrhea, History of recent blood transfusion, Abnormal uterine bleeding, S/P exploratory laparotomy, Obesity (BMI 30-39.9), S/P myomectomy ferrous sulfate 325 Take 1 tablet 60 tablet 3 01/13/2020 Active mg (65 mg iron) by mouth 2 tabletIndications: (two) times Acute on chronic daily. blood loss anemia, Intramural leiomyoma of uterus, Dysmenorrhea, History of recent blood transfusion, Abnormal uterine bleeding, S/P exploratory laparotomy, Obesity (BMI 30-39.9), S/P myomectomy gabapentin 300 mg Take 1 capsule 15 capsule 0 01/13/202001/17 Active capsuleIndications: by mouth 3 0 Acute on chronic (three) times blood loss anemia, daily for 5 Intramural leiomyoma days. of uterus, Dysmenorrhea, History of recent blood transfusion, Abnormal uterine bleeding, S/P exploratory laparotomy, Obesity (BMI 30-39.9), S/P myomectomy HYDROcodone-acetamin Take 1 tablet 15 tablet 0 01/13/2020 Active ophen 5-325 mg by mouth every tabletIndications: 6 (six) hours Acute on chronic as needed for blood loss anemia, Pain (scale Intramural leiomyoma 7-10). of uterus, Dysmenorrhea, History of recent blood transfusion, Abnormal uterine bleeding, S/P exploratory laparotomy, Obesity (BMI 30-39.9), S/P myomectomy acetaminophen Take 2 tablets 30 tablet 1 01/13/2020 Active (TYLENOL) 325 mg by mouth every 1 tabletIndications: 6 (six) hours Acute on chronic as needed for blood loss anemia, Pain (scale Intramural leiomyoma 1-3) or Pain of uterus, (scale 4-6). Dysmenorrhea, History of recent blood transfusion, Abnormal uterine bleeding, S/P exploratory laparotomy, Obesity (BMI 30-39.9), S/P myomectomy simethicone 80 mg Take 1 tablet 60 tablet 1 01/13/2020 Active chewable by mouth 2 tabletIndications: (two) times Acute on chronic daily as blood loss anemia, needed for Intramural leiomyoma Gas. of uterus, Dysmenorrhea, History of recent blood transfusion, Abnormal uterine bleeding, S/P exploratory laparotomy, Obesity (BMI 30-39.9), S/P myomectomy levocetirizine 5 mg 0 Discontinued tablet 0 montelukast 10 mg TAKE 1 TABLET 0 07/30/2019 02 Discontinued tablet BY MOUTH ONCE 0 DAILY IN THE EVENING ferrous sulfate 325 Take 1 capsule 60 capsule 3 09/28/2019 Discontinued mg (65 mg iron) SR by mouth 3 0 capsule (three) times daily. norgestimate-ethinyl Take 2 tablets 2 Package 0 11/16/2019 Discontinued estradiol 0.25-35 by mouth 0 mg-mcg per daily. tabletIndications: Iron deficiency anemia due to chronic blood loss, Abnormal uterine bleeding documented as of this encounter (statuses as of 01/13/2020) Active Problems Problem Noted Date Obesity (BMI 30-39.9) 01/12/2020 S/P myomectomy 01/12/2020 S/P exploratory laparotomy 01/11/2020 Abnormal uterine bleeding 01/05/2020 Overview: Added automatically from request for jeannette kelly [id number] New onset of headaches 09/26/2019 Encounter for BCP ( control pills) initial prescr iption 09/06/2019 Dysmenorrhea 09/06/2019 Intramural leiomyoma of uterus 08/07/2019 Acute on chronic blood loss anemia 08/06/2019 Chronic pain of multiple joints 04/20/2018 Seasonal allergies History of recent blood transfusion Overview: 09/23/2019 documented as of this encounter (statuses as of 01/13/2020) Resolved Problems Problem Noted Date Resolved Date Postoperative anemia due to acute blood loss 08/07/2019 01/06/2020 Retained products of conception after miscarriage 07/26/2019 01/06/2020 13 weeks gestation of 07/07/2019 07/26/20 19 Abdominal cramping affecting 07/07/2019 1 09/07/2018 Threatened , antepartum 07/07/2019 07/26/20 19 Abnormal maternal glucose tolerance, antepartum 07/07/2019 08/23/2019 Iron deficiency anemia 04/20/2018 07/07/2019 documented as of this encounter (statuses as of 01/13/2020) Immunizations Name Administration Dates Next Due Influenza Virus Vaccine Quad .5 mL IM 6+ MO 06/09/2019 documented as of this encounter Social History Tobacco Use Types Packs/Day Years Used Date Never Smoker Smokeless Tobacco: Never Used Tobacco Cessation: Counseling Given: No Alcohol Use Drinks/Week oz/Week Comments No Education [...] Sign Reading Time Taken Comments Blood Pressure 98/59 01/13/2020 7:00 AM CDT Pulse 80 01/13/2020 7:00 AM CDT Temperature 36.8 C (98.2 F) 01/13/2020 7:00 AM CDT Respiratory Rate 16 01/13/2020 7:00 AM CDT Oxygen Saturation 97% 01/13/2020 7:00 AM CDT Inhaled Oxygen Concentration - - Weight 69.5 kg (153 lb 3.2 oz) 01/12/2020 4:37 AM CDT Height 149.9 cm (4' 11") 01/11/2020 4:20 PM CDT Body Mass Index 30.94 01/11/2020 4:20 PM CDT documented in this encounter Discharge Summaries Raisa Richard MD - 01/13/2020 8:44 AM CDT [employer] DISCHARGE SUMMARY NOTE Date of Service: 01/13/2020 Admit Date: 01/11/2020 Discharge Date: 01/13/2020 Attending MD: Raisa Richard MD Reffering MD: [facility] PCP: Josh Smith Reason for Admission: Scheduled ex-lap and myomectomy Final Diagnosis: (the reason, after study, for admitting the patient to the hospital) S/P myomectomy Acute on chronic anemia secondary to blood loss Principle Procedure: Procedure(s): EXPLORATORY LAPAROTOMY MYOMECTOMY Additional Procedures: 3 units of PRBCs transfusion Significant Lab/X-rays: Ref. Range 01/11/2020 08:10 01/11/2020 12:06 01/11/2020 13:25 01/12/2020 06:05 01/12/2020 20:32 HGB Latest Ref Range: 11.6 - 15.0 g/dL 10.6 (L) 9.1 (L) 8.5 (L) 6.2 (L) 7.4 (L) HCT Latest Ref Range: 35.7 - 45.2 % 35.2 (L) 30.0 (L) 26.9 (L) 18.7 (L) 22.0 (L) Hospital Course: Length of stay: 2 Complications developed: none Lubna Joe is a 34 year old female with known history of 12.5 cm uterine fibroid, abnormal uterine bleeding with anemia required blood transfusion, and dysmenorrhea who have failed medical management, who desired to proceed with ex-lap and myomectomy. Patient s/p ex-lap and myomectomy. Patient had acute on chronic anemia secondary to acute blood loss and received 3 units of PRBCs duringthis admission. Post-op course was uncomplicated and patient met all post-op milestones on POD#2 and was stable for discharge home. Condition: good Diet: regular Activity: pelvic rest, no strenuous activity and no heavy lifting Discharge Medications: Current Discharge Medication List START taking these medications Details acetaminophen (TYLENOL) 650 mg Take 650 mg by mouth every 6 (six) hours as needed for Pain (scale 1-3) or Pain (scale 4-6). Qty: 30 tablet, Refills: 1 Start date: 01/13/2020, End date: 01/12/2021 Associated Diagnoses: Acute on chronic blood loss anemia; Intramural leiomyoma of uterus; Dysmenorrhea; History of recent blood transfusion; Abnormal uterine bleeding; S/P exploratory laparotomy; Obesity (BMI 30-39.9); S/P myomectomy docusate (COLACE) 100 mg Take 100 mg by mouth 2 (two) times daily as needed for Constipation. Qty: 60 capsule, Refills: 1 Start date: 01/13/2020 Associated Diagnoses: Acute on chronic blood loss anemia; Intramural leiomyoma of uterus; Dysmenorrhea; History of recent blood transfusion; Abnormal uterine bleeding; S/P exploratory laparotomy; Obesity (BMI 30-39.9); S/P myomectomy ferrous sulfate 325 mg Take 325 mg by mouth 2 (two) times daily. Qty: 60 tablet, Refills: 3 Start date: 01/13/2020 Associated Diagnoses: Acute on chronic blood loss anemia; Intramural leiomyoma of uterus; Dysmenorrhea; History of recent blood transfusion; Abnormal uterine bleeding; S/P exploratory laparotomy; Obesity (BMI 30-39.9); S/P myomectomy gabapentin (NEURONTIN) 300 mg Take 300 mg by mouth 3 (three) times daily. Qty: 15 capsule, Refills: 0 Start date: 01/13/2020, End date: 01/18/2020 Associated Diagnoses: Acute on chronic blood loss anemia; Intramural leiomyoma of uterus; Dysmenorrhea; History of recent blood transfusion; Abnormal uterine bleeding; S/P exploratory laparotomy; Obesity (BMI 30-39.9); S/P myomectomy HYDROcodone-acetaminophen (NORCO 5) 1 tablet Take 1 tablet by mouth every 6 (six) hours as needed for Pain (scale 7-10). Qty: 15 tablet, Refills: 0 Start date: 01/13/2020 Associated Diagnoses: Acute on chronic blood loss anemia; Intramural leiomyoma of uterus; Dysmenorrhea; History of recent blood transfusion; Abnormal uterine bleeding; S/P exploratory laparotomy; Obesity (BMI 30-39.9); S/P myomectomy simethicone (GAS RELIEF (SIMETHICONE)) 80 mg Take 80 mg by mouth 2 (two) times daily as needed for Gas. Qty: 60 tablet, Refills: 1 Start date: 01/13/2020 Associated Diagnoses: Acute on chronic blood loss anemia; Intramural leiomyoma of uterus; Dysmenorrhea; History of recent blood transfusion; Abnormal uterine bleeding; S/P exploratory laparotomy; Obesity (BMI 30-39.9); S/P myomectomy CONTINUE these medications which have NOT CHANGED Details LEVOCETIRIZINE 5 mg tablet TAKE 1 TABLET BY MOUTH ONCE DAILY IN THE EVENING Qty: 30 tablet, Refills: 5 Associated Diagnoses: Acute allergic rhinitis MONTELUKAST 10 mg tablet TAKE 1 TABLET BY MOUTH ONCE DAILY IN THE EVENING Qty: 30 tablet, Refills: 5 Associated Diagnoses: Acute allergic rhinitis ergocalciferol, vitamin D2, (VITAMIN D ORAL) Take by mouth. foLIC acid (FOLATE) 1 mg Take 1 mg by mouth daily. Qty: 30 tablet, Refills: 3 Associated Diagnoses: Retained products of conception after miscarriage; S/P D&C (status post dilation and curettage) proMETHazine (PHENERGAN) 25 mg Take 25 mg by mouth every 6 (six) hours as needed for Nausea and Vomiting (N/V). Qty: 30 tablet, Refills: 1 Associated Diagnoses: Abnormal uterine bleeding ibuprofen (IBU) 600 mg Take 600 mg by mouth every 6 (six) hours as needed for Pain (scale 1-3) or Pain (scale 4-6). Qty: 30 tablet, Refills: 1 Associated Diagnoses: Dysmenorrhea norgestimate-ethinyl estradiol (SPRINTEC) 1 tablet Take 1 tablet by mouth daily. Qty: 4 Package, Refills: 3 Comments: Take 1 active pill daily for the first 3 packs; take 1 pill daily on the 4th pack to havea period Associated Diagnoses: Encounter for BCP ( control pills) initial prescription ascorbic acid (vitamin C) (VITAMIN C) 1 TAB-CAP/M2 Take 1 TAB-CAP/M2 by mouth daily. Qty: 30 tablet, Refills: 3 Associated Diagnoses: Retained products of conception after miscarriage; S/P D&C (status post dilation and curettage) ANTIBIOTICS: Did this patient receive antibiotics during this admission, or is he/sh being discharged with antibiotics? No Was the patient given education on antibiotic indication, duration, and adverse effects? Wound Care: as directed Discharge: Discharged: Home Follow-up Appointment: Return to [facility] in 1 week Raisa Richard MD 01/13/2020 8:48 AM documented in this encounter Discharge Instructions AttachmentsThe following attachments cannot be sent through Care Everywhere. Myomectomy ([place])Simethicone oral tablets or capsules ([place])Acetaminophen tablets or caplets ([place])Ibuprofen tablets and capsules ([place])Docusate capsules ([place] Island[place])Gabapentin capsules or tablets ([place])Acetaminophen; Hydrocodone tablets or capsules ([place])documented in this encounter Progress Notes Hemalatha Alejandro, OCTAVIANO - 01/12/2020 8:46 AM CDTSubjective Patient ID: Lubna Joe is a 34 year old female. Care Management Social Functional Assessment Patient Name: Lubna Joe Age: [age] year old Sex: female Previous admit date: N/A Current diagnosis and co-morbidities: Abnormal uterine bleeding (N93.9);Intramural leiomyoma of uterus (D25.1) Readmission Questions: Was patient discharged from any acute care hospital within the last 30 days: No Social Functional Assessment: Primary language spoken/preferred: [place] Mental Status: Alert & Oriented to Person,Place & Time Information given by: Self Patient's support system: Spouse;Other Name and number of support system: Chava Eli, and Maryuri Joe, sister [phone] Primary Staff Command And Control Officer: Self MPOA: No Living Arrangement: Home Address of living arrangement : [address] [place] [id number] Persons living in home: Self;Spouse Barriers to returning home: None Baseline functional status- ambulation: Independent Functional status-baseline personal care: Independent Baseline functional status- driving: Independent Baseline functional status- grocery shopping: Independent Functional status-baseline housekeeping: Independent Functional status-baseline meal prep: Independent Current functional status same as prior: Yes Do you have a PCP?: Yes Name of PCP: Dr. Smith Home Health Care Agency: No Provider Services: No DME Company: No Equipment: None Hemodialysis: No Community resources utilized: None Funding Resources: Commercial Prescription coverage plan: Commercial Pharmacy where meds are filled: Other Other pharmacy: [facility] Anticipated services prior to disharge: Continue Medical Eval Expected mode of discharge transportation: Same as support system Additional Recommendations for DC: Medical clearance Additional info required for discharge planning: Pending medical evaluation Recommended discharge plan: Home SFA Complete: Social Functional Assessment complete: Yes Alcohol Use Screening (AUDIT-C) How often do you have a drink containing alcohol?: Never SCORE: 0 Did patient elect to have resources provided: No Role of Care Management explained. Any issues or concerns with obtaining/affording your medications at home: no. 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 Review of Systems Objective Physical Exam Assessment/Plan Home with family. No needs to report. JYOTI Rich Technical Support Agent - Care Management [facility] [phone] [email or web address] Bernardo, Raisa Amato MD - 01/12/2020 6:44 AM CDT POST-OP PROGRESS NOTE Date of Service: 01/12/2020 Post-Op Day # 1 Day Post-Op Subjective: Patient is a 34 year old female without complaints. Pain is controlled. Denies ambulation or flatus. Kulkarni in placed. S/P: Procedure(s): EXPLORATORY LAPAROTOMY MYOMECTOMY Objective: Vital Signs: Patient Vitals for the past 24 hrs: Weight Actual or estimated Height Actual or estimated BMI (calculated) BP BP source Pulse Pulse source Resp Temp Temp src SpO2 01/12/20 0600 92/55 01/12/20 0437 69.5 kg (153 lb 3.2 oz) 30.94 (!) 87/50 83 16 36.4 C (97.6 F) TEMPORAL ART 97 % 01/12/20 0002 95/69 79 16 36.1 C (97 F) TEMPORAL ART 99 % 01/11/202009 90/65 96 16 36.2 C (97.2 F) TEMPORAL ART 99 % 01/11/20 1711 92/66 107 16 36.4 C (97.6 F) TEMPORAL ART 99 % 01/11/20 1620 65.3 kg (143 lb 15.4 oz) Actual 1.499 m (4' 11") Estimated by patient/family 29.08 01/11/20 1600 114 16 36.8 C (98.2 F) 100 % 01/11/20 1545 98/66 90 13 96 % 01/11/20 1530 100/66 112 19 36.8 C (98.2 F) 100 % 01/11/20 1521 107/68 104 17 100 % 01/11/20 1516 98/59 91 9 100 % 01/11/20 1511 107/67 96 10 100 % 01/11/20 1510 76 8 100 % 01/11/20 1509 74 10 100 % 01/11/20 1506 101/61 115 10 100 % 01/11/20 1505 88 8 100 % 01/11/20 1504 98 8 94 % 01/11/20 1503 77 8 100 % 01/11/20 1502 103 10 100 % 01/11/20 1501 95/60 112 11 100 % 01/11/20 1459 99 8 100 % 01/11/20 1456 107/73 105 11 98 % 01/11/20 1451 109/70 98 10 100 % 01/11/20 1447 97 10 100 % 01/11/20 1446 109/69 96 9 100 % 01/11/20 1445 96 11 100 % 01/11/20 1444 98 13 100 % 01/11/20 1443 91 15 100 % 01/11/20 1442 113 10 98 % 01/11/20 1441 110/76 94 9 100 % 01/11/20 1438 99 13 100 % 01/11/20 1436 114/70 102 11 100 % 01/11/20 1431 110/67 97 12 100 % 01/11/20 1426 108/65 115 12 100 % 01/11/20 1422 106/60 115 12 100 % 01/11/20 1421 36.9 C (98.4 F) TEMPORAL ART 01/11/20 1152 65.3 kg (143 lb 15.4 oz) 0 01/11/20 0759 108/79 Right arm 77 Monitor 18 36.9 C (98.4 F) TEMPORAL ART 99% Physical Exam General: Alert, oriented times three, no apparent distress Heart: RRR Lung; CTAB Abdomen: Soft, nondistended, bowel sounds present Incision/Wound: bandage clean, dry, intact : Used 2 pads overnight (on her period) Extremities: No calf tenderness or pedal edema. Skin dry and warm. Pulses 2 + bilaterally. Labs: CBC BMP WBC (10*3/L) Date Value 01/12/2020 10.69 NA (mmol/L) Date Value 09/23/2019 139 RBC (10*6/L) Date Value 01/12/2020 2.24 (L) K (mmol/L) Date Value 09/23/2019 4.3 PLT (10*3/L) Date Value 01/12/2020 133 (L) CALCIUM (mg/dL) Date Value 09/23/2019 9.2 HGB (g/dL) Date Value 01/12/2020 6.2 (L) CL (mmol/L) Date Value 09/23/2019 101 HCT (%) Date Value 01/12/2020 18.7 (L) BUN (mg/dL) Date Value 09/23/2019 8 CREATININE (mg/dL) Date Value 09/23/2019 0.54 Medications: Current Facility-Administered Medications Medication Dose Route Frequency Last Rate Last Dose ascorbic acid (vitamin C) (VITAMIN C) chewable tablet 500 mg 500 mg Oral DAILY diphenhydrAMINE (BENADRYL) injection 25 mg 25 mg Slow IV Push ONCE ferrous sulfate tablet 325 mg 325 mg Oral BID foLIC acid (FOLATE) tablet 1 mg 1 mg Oral DAILY furosemide (LASIX) injection 20 mg 20 mg Slow IV Push ONCE HYDROcodone-acetaminophen (NORCO 5) 5-325 mg tablet 1 tablet 1 tablet Oral Q6HPRN HYDROcodone-acetaminophen (NORCO) 10-325 mg tablet 1 tablet 1 tablet Oral Q6HPRN acetaminophen (TYLENOL) tablet 650 mg 650 mg Oral Q6H ABX 650 mg at 01/12/20 0558 [id number] IV infusion 1,000 mL 1,000 mL IV Infusion CONTINUOUS 125 mL/hr at 01/12/20 0023 1,000 mLat 01/12/20 0023 docusate (COLACE) capsule 100 mg 100 mg Oral Q12H 100 mg at 01/11/209 gabapentin (NEURONTIN) capsule 300 mg 300 mg Oral TID 300 mg at 01/11/20 2149 [START ON 01/13/2020] ibuprofen (IBU) tablet 600 mg 600 mg Oral Q6H ABX ketorolac (TORADOL) injection 30 mg 30 mg Slow IV Push Q6H ABX 30 mg at 01/12/20 0558 lactated ringers IV infusion 500 mL 500 mL IV Infusion CONTINUOUS 42 mL/hr at 01/11/20 1500 1,000 mL at 01/11/20 1500 montelukast (SINGULAIR) tablet 10 mg 10 mg Oral QHS 10 mg at 01/11/202255 morpHINE 2 mg/mL LOAD & RESCUE INJECTION SYRG Slow IV Push SEE-INSTRUCTIONS naloxone (NARCAN) injection 0.1 mg 0.1 mg Slow IV Push SEE-INSTRUCTIONS proMETHazine (PHENERGAN) 25 mg in NaCl 0.9% (NS) 50 mL IV piggyback 25 mg IV Piggyback [id number] mg at 01/11/20 2256 sennosides (SENOKOT) tablet 8.6 mg 8.6 mg Oral DAILY simethicone (GAS RELIEF (SIMETHICONE)) chewable tablet 160 mg 160 mg Oral PC+HS 160 mg at 01/11/209 Assessment/Plan: Lubna Joe is experiencing adequate urine output, using kulkarni, tolerating PO diet, not ambulating and experiencing controlled pain. POD#1 - continue with routine post-op care - Acute on chronic anemia due to blood loss: S/p 2 units of PRBCs. H/H this am 6.2/18.7. UOP adequate. Will transfuse 1 more unit of PRBCs - Dispo: Anticipate discharge home tomorrow if remains stable Raisa Richard MD 01/12/2020 5:38 PM documented in this encounter Plan of Treatment Date Type Specialty Care Team Description 01/21/2020 Nurse Visit Obstetrics & Gynecology Nurse, [facility] 02/07/2020 Office Visit Obstetrics & Gynecology Caren Richard MD [address] [place] [address] 15 [phone] 05/08/2020 Office Visit Obstetrics & Gynecology Caren Richard MD [address] [facility] [address] [place] [address] 15 [phone] Name Type Priority Associated Diagnoses Date/Ti nc SURGICAL PATHOLOGY EXAM LAB STAT 12/26 12:49 PM CDT Name Type Priority Associated Diagnoses Order S chedule SURGICAL PATHOLOGY EXAM LAB Routine ONCE for 1 Occurrences starting 2019, 1 completed Health Maintenance Due Date Last Done Comments [...] Procedure Name Priority Date/Time Associated Comments Diagnosis PROFILE / HEMOGRAM Routine 01/12/2020 8:32 Resul ts for this PM CDT procedure are i n the results section. TRANSFUSE PACKED RBC Routine 01/12/2020 3:03 PM CDT PREPARE PACKED RBC Routine 01/12/2020 11:14 Resul ts for this AM CDT procedure are i n the results section. CBC WITH Routine 01/12/2020 6:05 Results for this DIFFERENTIAL AM CDT procedure are i n the results section. CBC WITH Routine 01/12/2020 6:05 Results for this DIFFERENTIAL AM CDT procedure are i n the results section. CBC WITH STAT 01/11/2020 1:25 Results for this DIFFERENTIAL PM CDT procedure are i n the results section. CBC WITH STAT 01/11/2020 1:25 Results for this DIFFERENTIAL PM CDT procedure are i n the results section. TRANSFUSE PACKED RBC DANYA 01/11/2020 12:53 (IN ML) PM CDT PREPARE PACKED RBC STAT 01/11/2020 12:48 Resul ts for this PM CDT procedure are i n the results section. TRANSFUSE PACKED RBC Routine 01/11/2020 12:41 PM CDT PREPARE PACKED RBC STAT 01/11/2020 12:31 Resul ts for this PM CDT procedure are i n the results section. CBC WITH STAT 01/11/2020 12:06 Results for this DIFFERENTIAL PM CDT procedure are i n the results section. CBC WITH STAT 01/11/2020 12:06 Results for this DIFFERENTIAL PM CDT procedure are i n the results section. MYOMECTOMY Level 5 (greater 01/11/2020 9:24 Abnormal uterine than 5 days) AM CDT bleeding Intramural leiomyoma of uterus Special Needs To follow EXPLORATORY Level 5 (greater 01/11/2020 9:24 Abnormal uteri ne bleeding LAPAROTOMY than 5 days) AM CDT Intramural leiomyoma of uterus Special Needs To follow POCT TEST Routine 01/11/2020 8:27 AM CDT Results for this procedure are i n the results section . CBC WITH DIFFERENTIAL Routine 01/11/2020 8:10 AM CDT Results for this procedure are i n the results section . HB ABO GROUPING Routine 01/11/2020 8:10 AM CDT R esults for this procedure are i n the results section . CBC WITH DIFFERENTIAL Routine 01/11/2020 8:10 AM CDT Results for this procedure are i n the results section . CONSENT/REFUSAL FOR Routine 01/10/2020 9:22 AM CDT DIAGNOSIS AND TREATMENT ASSIGNMENT OF BENEFITS Routine 01/10/2020 9:22 AM CDT DSU PRE-OP Routine 01/04/2020 12:01 AM CDT DSU PRE-OP Routine 01/04/2020 12:01 AM CDT documented in this encounter Results PROFILE / HEMOGRAM (01/12/2020 8:32 PM CDT) Pathologist Sig nature WBC 14.01 (H) 4.30 - 11.10 [facility] 10*3/L [facility] RBC 2.60 (L) 3.93 - 5.25 [facility] 10*6/L [facility] HGB 7.4 (L) 11.6 - 15.0 g/dL [facility] HCT 22.0 (L) 35.7 - 45.2 % [facility] MCH 28.5 25.9 - 32.8 pg [facility] MCV 84.6 80.6 - 95.5 fL [facility] MCHC 33.6 31.6 - 35.1 g/dL [facility] PLT 139 (L) 166 - 358 10*3/L [facility] MPV 11.0 9.5 - 12.9 fL [facility] RDW-CV 15.7 (H) 12.0 - 15.5 % [facility] RDW-SD 47.7 39.0 - 49.9 fL [facility] NRBC x10^3 <0.01 10*3/L [facility] NRBC/100 WBC 0.0 0.0 - 10.0 /100 [facility] WBCs [facility] IPF % [facility] Specimen Blood - ARM, RIGHT Performing Organization Address City/State/Zipcode Phone Number [facility] CLIA: [id number], [address] [place], [place] [address] Prepare Packed RBC (in units), 1 Units (01/12/2020 11:14 AM CDT) Cross Match Result Compatible LAB ISBT Blood Type Code 5100 LAB Unit Blood Type O Pos LAB Unit Number [id number] LAB Blood Expiration Date & LAB Time Status Information Issued LAB Product Identification Red Blood Cells LAB Product Code [id number] LAB Comment: Performed at [facility] Laboratory Services - [facility] Blood Bank [address] [place], [place] [address] Toll Free: [phone] CLIA No. [id number] Specimen Performing Organization Address City/State/Zipcode Phone Number BLD LAB CBC WITH DIFFERENTIAL (01/12/2020 6:05 AM CDT) Pathologist Sig nature WBC 10.69 4.30 - 11.10 [facility] 10*3/L [facility] RBC 2.24 (L) 3.93 - 5.25 [facility] 10*6/L [facility] HGB 6.2 (L) 11.6 - 15.0 [facility] g/dL [facility] HCT 18.7 (L) 35.7 - 45.2 % [facility] MCV 83.5 80.6 - 95.5 fL [facility] MCH 27.7 25.9 - 32.8 pg [facility] MCHC 33.2 31.6 - 35.1 [facility] g/dL [facility] RDW-SD 49.1 39.0 - 49.9 fL [facility] RDW-CV 16.3 (H) 12.0 - 15.5 % [facility] PLT 133 (L) 166 - 358 [facility] 10*3/L [facility] MPV 11.4 9.5 - 12.9 fL [facility] NRBC/100 WBC 0.0 0.0 - 10.0 /100 [facility] WBCs [facility] NRBC x10^3 <0.01 10*3/L [facility] GRAN MAT (NEUT) % 77.2 % [facility] IMM GRAN % 0.40 % [facility] LYMPH % 13.4 % [facility] MONO % 8.9 % [facility] EOS % 0.0 % [facility] BASO % 0.1 % [facility] GRAN MAT x10^3(ANC) 8.26 (H) 1.88 - 7.09 [facility] 10*3/uL [facility] IMM GRAN x10^3 0.04 0.00 - 0.06 [facility] 10*3/uL [facility] LYMPH x10^3 1.43 1.32 - 3.29 [facility] 10*3/uL [facility] MONO x10^3 0.95 (H) 0.33 - 0.92 [facility] 10*3/uL [facility] EOS x10^3 <0.03 (L) 0.03 - 0.39 [facility] 10*3/uL [facility] BASO x10^3 <0.03 0.01 - 0.[address]uL [facility] Specimen Blood - VENOUS Performing Organization Address City/State/Zipcode Phone Number [facility] CLIA: [id number], [address] [place] [address] CBC WITH DIFFERENTIAL (01/11/2020 1:25 PM CDT) [facility] WBC 18.26 (H) 4.30 - 11.10 [facility] 10*3/L [facility] RBC 3.06 (L) 3.93 - 5.25 [facility] 10*6/L [facility] HGB 8.5 (L) 11.6 - 15.0 [facility] g/dL [facility] HCT 26.9 (L) 35.7 - 45.2 % [facility] MCV 87.9 80.6 - 95.5 fL [facility] MCH 27.8 25.9 - 32.8 pg [facility] MCHC 31.6 31.6 - 35.1 [facility] g/dL [facility] RDW-SD 52.9 (H) 39.0 - 49.9 fL [facility] RDW-CV 16.4 (H) 12.0 - 15.5 % [facility] PLT 202 166 - 358 [facility] 10*3/L HOSP[facility] MPV 10.8 9.5 - 12.9 fL [facility] NRBC/100 WBC 0.0 0.0 - 10.0 /100 [facility] WBCs [facility] NRBC x10^3 <0.01 10*3/L [facility] GRAN MAT (NEUT) % 91.6 % [facility] IMM GRAN % 0.70 % [facility] LYMPH % 5.5 % [facility] MONO % 2.0 % [facility] EOS % 0.0 % [facility] BASO % 0.2 % [facility] GRAN MAT x10^3(ANC) 16.74 (H) 1.88 - 7.09 [facility] 10*3/uL [facility] IMM GRAN x10^3 0.12 (H) 0.00 - 0.06 [facility] 10*3/uL [facility]OS[facility] LYMPH x10^3 1.00 (L) 1.32 - 3.29 [facility] 10*3/uL [facility] MONO x10^3 0.37 0.33 - 0.92 [facility] 10*3/uL [facility] EOS x10^3 <0.03 (L) 0.03 - 0.39 [facility] 10*3/uL [facility] BASO x10^3 0.03 0.01 - 0.07 [facility] 10*3/uL [facility] Specimen Blood - HAND, RIGHT Performing Organization Address City/State/Zipcode Phone Number [facility] CLIA: [id number], [address] [place] [address] [address] [facility] [address] Prepare Packed RBC (in units), 1 Units (01/11/2020 12:48 PM CDT) Cross Match Result Compatible LAB ISBT Blood Type Code 5100 LAB Unit Blood Type O Pos LAB Unit Number [id number] LAB Blood Expiration Date & LAB Time Status Information Issued LAB Product Identification Red Blood Cells LAB Product Code [id number] LAB Comment: Performed at [facility] Laboratory Services - [facility] Blood Bank [address] [place], [place] [address] Toll Free: [phone] CLIA No. [id number] Specimen Performing Organization Address City/State/Zipcode Phone Number BLD LAB Prepare Packed RBC (in units), 1 Units (01/11/2020 12:31 PM CDT) Cross Match Result Compatible LAB ISBT Blood Type Code 5100 LAB Unit Blood Type O Pos LAB Unit Number [id number] LAB Blood Expiration Date & LAB Time Status Information Issued LAB Product Identification Red Blood Cells LAB Product Code [id number] LAB Comment: Performed at [facility] Laboratory Services - [facility] Blood Bank [address] [place] [address] Toll Free: [phone] CLIA No. [id number] Specimen Performing Organization Address City/State/Zipcode Phone Number BLD LAB CBC WITH DIFFERENTIAL (01/11/2020 12:06 PM CDT) Pathologist Sig nature WBC 16.20 (H) 4.30 - 11.10 [facility] 10*3/L [facility] RBC 3.66 (L) 3.93 - 5.25 [facility] 10*6/L [facility] HGB 9.1 (L) 11.6 - 15.0 [facility] g/dL [facility] HCT 30.0 (L) 35.7 - 45.2 % [facility] MCV 82.0 80.6 - 95.5 fL [facility] MCH 24.9 (L) 25.9 - 32.8 pg [facility] MCHC 30.3 (L) 31.6 - 35.1 [facility] g/dL [facility] RDW-SD 57.3 (H) 39.0 - 49.9 fL [facility] RDW-CV 19.3 (H) 12.0 - 15.5 % [facility] PLT 371 (H) 166 - 358 [facility] 10*3/L [facility] MPV 10.6 9.5 - 12.9 fL [facility] NRBC/100 WBC 0.0 0.0 - 10.0 /100 [facility] WBCs [facility] NRBC x10^3 <0.01 10*3/L [facility] GRAN MAT (NEUT) % 87.8 % [facility] IMM GRAN % 0.60 % [facility] LYMPH % 9.6 % [facility] MONO % 1.7 % [facility] EOS % 0.1 % [facility] BASO % 0.2 % [facility] GRAN MAT x10^3(ANC) 14.23 (H) 1.88 - 7.09 [facility] 10*3/uL [facility] IMM GRAN x10^3 0.09 (H) 0.00 - 0.06 [facility] 10*3/uL [facility] LYMPH x10^3 1.55 1.32 - 3.29 [facility] 10*3/uL [facility] MONO x10^3 0.28 (L) 0.33 - 0.92 [facility] 10*3/uL [facility] EOS x10^3 <0.03 (L) 0.03 - 0.39 [facility] 10*3/uL [facility] BASO x10^3 0.03 0.01 - 0.07 [facility] 10*3/uL [facility] Specimen Blood - HAND, RIGHT Performing Organization Address City/State/Zipcode Phone Number [facility] CLIA: [id number], [address] [place] [phone] [address] POCT Test (01/11/2020 8:27 AM CDT) Pathologist Sig nature POCT PREG Negative On board controls acceptable Yes with C Line POCT PREG LOT # [id number] POCT PREG TEST DATE 2020-10-15 Specimen Urine - URINE, CLEAN CATCH CBC WITH DIFFERENTIAL (01/11/2020 8:10 AM CDT) Pathologist Sig nature WBC 8.88 4.30 - 11.10 [facility] 10*3/L HOSPITAL LAB[facility]ORY RBC 4.30 3.93 - 5.25 [facility] 10*6/L [facility] HGB 10.6 (L) 11.6 - 15.0 [facility] g/dL [facility] HCT 35.2 (L) 35.7 - 45.2 % [facility] MCV 81.9 80.6 - 95.5 fL [facility] MCH 24.7 (L) 25.9 - 32.8 pg [facility] MCHC 30.1 (L) 31.6 - 35.1 [facility] g/dL [facility] RDW-SD 57.2 (H) 39.0 - 49.9 fL [facility] RDW-CV 19.5 (H) 12.0 - 15.5 % [facility] PLT 341 166 - 358 [facility] 10*3/L [facility] MPV 10.6 9.5 - 12.9 fL [facility] NRBC/100 WBC 0.0 0.0 - 10.0 /100 [facility] WBCs [facility] NRBC x10^3 <0.01 10*3/L [facility] GRAN MAT (NEUT) % 73.4 % [facility] IMM GRAN % 0.30 % [facility] LYMPH % 18.6 % [facility] MONO % 6.6 % [facility] EOS % 0.9 % [facility] BASO % 0.2 % [facility] GRAN MAT x10^3(ANC) 6.51 1.88 - 7.09 [facility] 10*3/uL [facility] IMM GRAN x10^3 0.03 0.00 - 0.06 [facility] 10*3/uL [facility] LYMPH x10^3 1.65 1.32 - 3.29 [facility] 10*3/uL [facility] MONO x10^3 0.59 0.33 - 0.92 [facility] 10*3/uL [facility] EOS x10^3 0.08 0.03 - 0.39 [facility] 10*3/uL [facility] BASO x10^3 <0.03 0.01 - 0.07 [facility] 10*3/uL [facility] Specimen Blood - WRIST, LEFT Performing Organization Address City/State/Zipcode Phone Number [facility] CLIA: [id number], [address] [place], [place] [address] Type and Screen - The Type and Screen expires at midnight on the 3rd day after it was drawn. A current Type and Screen is required when RBCs are requested. For all other blood products, a Type and Screen performed during the current hospitalizati... (01/11/2020 8:10 AM CDT) Valencia escobedo ABO & RH O Positive LAB Comment: Performed at [facility] Laboratory Services - [facility] Blood Bank [address] [place] [address] Toll Free: [phone] CLIA No. [id number] IAT Negative LAB Comment: Performed at [facility] Laboratory Services - [facility] Blood Bank [address] [place] [phone] Toll Free: [phone] CLIA No. [id number] Specimen Blood - VENOUS Performing Organization Address City/State/Zipcode Phone Number BLD LAB documented in this encounter Visit Diagnoses Diagnosis S/P myomectomy - Primary Other postprocedural status Acute on chronic blood loss anemia Intramural leiomyoma of uterus Dysmenorrhea History of recent blood transfusion Abnormal uterine bleeding Unspecified disorder of menstruation and other abnormal bleeding from female genital tract S/P exploratory laparotomy Other postprocedural status Obesity (BMI 30-39.9) Obesity, unspecified documented in this encounter Administered Medications Medication Order MAR Action Action Date Dose Rate Site acetaminophen (TYLENOL) tablet Given 01/13/2020 5:36 AM CDT 650 mg 650 mg 650 mg, Oral, Q6H ABX, First dose on Fri01/11/20 at 1800, Until Discontinued, Routine Given 01/12/2020 11:36 PM CDT 650 mg Given 01/12/2020 6:42 PM CDT 650 mg ascorbic acid (vitamin C) (VITAMIN C) tablet Given 8:19 AM CDT 500 mg 500 mg 500 mg, Oral, DAILY, First dose on Fri01/12/20 at 0900, Until Discontinued, Routine Given 01/12/2020 8:28 AM CDT 500 mg D5W-LR IV infusion 1,000 mL New Bag 01/13/2020 1:39 AM CDT 1,000 mL 50 mL/hr at 50 mL/hr, IV Infusion, CONTINUOUS, Starting Fri01/12/20 at 0915, Until Discontinued, Routine Rate Change 01/12/2020 11:38 AM CDT 50 mL/hr docusate (COLACE) capsule 100 mg Given 01/13/2020 8:20 AM CDT 100 mg 100 mg, Oral, Q12H, First dose on Fri01/11/20 at 2000, Until Discontinued, Routine Given 01/12/2020 8:15 PM CDT 100 mg Given 01/12/2020 8:28 AM CDT 100 mg ferrous sulfate tablet 325 mg Given 01/13/2020 8:19 AM CDT 325 mg 325 mg, Oral, BID, First dose on Fri01/12/20 at 0800, Until Discontinued, Routine Given 01/12/2020 8:15 PM CDT 325 mg Given 01/12/2020 8:28 AM CDT 325 mg foLIC acid (FOLATE) tablet 1 mg Given 01/13/2020 8:19 AM CDT 1 mg 1 mg, Oral, DAILY, First dose on Fri01/12/20 at 0900, Until Discontinued, Routine Given 01/12/2020 8:27 AM CDT 1 mg gabapentin (NEURONTIN) capsule 300 mg Given 01/13/2020 8:19 AM CDT 300 mg 300 mg, Oral, TID, First dose on Fri01/11/20 at 2000, Until Discontinued, Routine Given 01/12/2020 8:15 PM CDT 300 mg Given 01/12/2020 2:47 PM CDT 300 mg HYDROcodone-acetaminophen (NORCO 5) 5-32 5 mg tablet 1 tablet 1 tablet, Oral, Q6HPRN, Starting 12/26 at 0600, Until Discontinued, Routine, Pain (scale 4-6) HYDROcodone-acetaminophen (NORCO) 10-325 Given 01/12/2020 2 :47 PM CDT 1 tablet mg tablet 1 tablet 1 tablet, Oral, Q6HPRN, Starting Fri01/12/20 at 0600, Until Discontinued, Routine, Pain (scale 7-10) ibuprofen (IBU) tablet 600 mg Given 01/13/2020 5:36 AM CDT 600 mg 600 mg, Oral, Q6H ABX, First dose on Fri01/13/20 at 0000, Until Discontinued, Routine Given 01/12/2020 11:37 PM CDT 600 mg lactated ringers IV infusion 500 New Bag 01/11/2020 3:00 PM C DT 1,000 mL 42 mL/hr mL at 42 mL/hr, 500 mL, IV Infusion, CONTINUOUS, Starting Fri01/11/20 at 1430, Until Discontinued, Routine, PACU montelukast (SINGULAIR) tablet 10 mg Given 01/12/2020 8:16 PM CDT 10 mg 10 mg, Oral, QHS, First dose on Fri01/12/20 at 2100, Until Discontinued, Routine Given 01/11/2020 10:56 PM CDT 10 mg morpHINE 2 mg/mL LOAD & RESCUE INJECTION SYRG Slow IV Push, Routine naloxone (NARCAN) injection 0.1 mg 0.1 mg, Slow IV Push, SEE-INSTRUCTIONS, Starting Fri at 1522, Until Discontinued, Routine proMETHazine (PHENERGAN) 25 mg in NaCl 0.9% Given 01/11/2020 10:56 PM CDT 25 mg (NS) 50 mL IV piggyback 25 mg, IV Piggyback, Q4HPRN, Starting Fri01/11/20 at 2227, Until Discontinued, Routine, Nausea and Vomiting (N/V) sennosides (SENOKOT) tablet 8.6 mg Given 01/13/2020 8:19 AM CDT 8.6 mg 8.6 mg, Oral, DAILY, First dose on Fri01/12/20 at 0900, Until Discontinued, Routine Given 01/12/2020 8:27 AM CDT 8.6 mg simethicone (GAS RELIEF (SIMETHICONE)) Given 01/13/2020 8:19 AM CDT 160 mg chewable tablet 160 mg 160 mg, Oral, PC+HS, First dose on Fri01/11/20 at 1800, Until Discontinued, Routine Given 01/12/2020 8:16 PM CDT 160 mg Given 01/12/2020 6:42 PM CDT 160 mg Medication Order MAR Action Action Date Dose Rate Site D5W-LR IV infusion 1,000 mL New Bag 01/12/2020 8:27 AM CDT 1,000 mL 125 mL/hr at 125 mL/hr, IV Infusion, CONTINUOUS, Starting Fri01/11/20 at 1630, Until Fri01/12/20 at 0906, Routine New Bag 01/12/2020 12:23 AM CDT 1,000 mL 125 mL/hr New Bag 01/11/2020 4:48 PM CDT 1,000 mL 125 mL/hr diphenhydrAMINE (BENADRYL) injection 25 mg Given 01/12/2020 8:27 AM CDT 25 mg 25 mg, Slow IV Push, ONCE, 1 dose, Fri01/12/20 at 0645, Routine HYDROmorphone (DILAUDID) injection 0.2 m g Given 01/11/2020 2:49 PM CDT 0.2 mg 0.2 mg, Slow IV Push, Q5MIN PRN, 10 doses, Starting Fri01/11/20 at 1419, Until Fri01/11/20 at 1624, Routine, Pain (scale 7-10), PACU, Use approved by (Faculty): PACU USE -ANESTHESIA SERVICE-HYDROMORPHONE INJECTIONS Given 01/11/2020 2:43 PM CDT 0.2 mg Given 01/11/2020 2:38 PM CDT 0.2 mg ketorolac (TORADOL) injection 30 mg Given 01/12/2020 6:42 PM CDT 30 mg 30 mg, Slow IV Push, Q6H ABX, 4 doses, First dose on Fri01/12/20 at 0000, Last dose on Fri01/12/20 at 1800, Routine, direct support staff member approving Restricted medication: RAISA RICHARD CAM Given 01/12/2020 12:07 PM CDT 30 mg Given 01/12/2020 5:58 AM CDT 30 mg lactated ringers IV infusion New Bag 01/11/2020 8:09 AM CDT 1,000 mL 20 mL/hr 1,000 mL at 20 mL/hr, 1,000 mL, IV Infusion, ONCE, 1 dose, Fri01/11/20 at 0800, Routine, DSU Pre-op morpHINE 30 mg/30 mL (fixed dose) [employer] New Bag 01/11/2020 4:47 PM CDT 30 mg injection documented in this encounter documented as of this encounter
--- OUTSIDE RECORDS SUMMARY | 2020-03-22 18:15 | XMS REPORT | Summary of Care ---
:1985 Author Organization [facility] - [facility] Address [address] [place] [id number] Care Team Providers Name Role Phone Josh Smith MD Primary Care Provider Reason for Visit Reason Comments Wound Check (Routine) Status Reason Specialty Diagnoses / Referred By Referred To Procedures Contact Contact Closed Obstetrics & Diagnoses Acute on chronic blood loss anemia Intramural leiomyoma of uterus Dysmenorrhea History of recent blood transfusion Abnormal uterine bleeding S/P exploratory laparotomy Obesity (BMI 30-39.9) S/P myomectomy Nohelia Guerra, Nohelia Guerra, Gynecology Procedures DISCHARGE FOLLOW-UP: TEST [facility] MD EDMONDSON [address] [place] [address] [address] [place] [phone] Phone: Fax: Encounter Details Date Type Department Care Team Description 01/21/2020 Nurse Visit [facility] Nohelia Guerra MD [address] [place] [address] [address] [place] [address] [phone] Encounter for post Healthcare- Claude Nurse, [facility] surgical wound check [address] [place] [address] ([address] D x) Drive, [address] [place] [address] Allergies No Known Allergiesdocumented as of this encounter (statuses as of 01/21/2020) Medications Medication Sig Dispensed Refills Start Date [...] as of this encounter (statuses as of 01/21/2020) Active Problems Problem Noted Date Obesity (BMI 30-39.9) 01/12/2020 S/P myomectomy 01/12/2020 S/P exploratory laparotomy 01/11/2020 Abnormal uterine bleeding 01/05/2020 Overview: Added automatically from request for jeannette kelly [id number] New onset of headaches 09/26/2019 Encounter for BCP ( control pills) initial prescr iption 09/06/2019 Dysmenorrhea 09/06/2019 Intramural leiomyoma of uterus 08/07/2019 Acute on chronic blood loss anemia 08/06/2019 Chronic pain of multiple joints 04/20/2018 Seasonal allergies History of recent blood transfusion Overview: 09/23/2019 documented as of this encounter (statuses as of 01/21/2020) Resolved Problems Problem Noted Date Resolved Date Postoperative anemia due to acute blood loss 08/07/2019 01/06/2020 Retained products of conception after miscarriage 07/26/2019 01/06/2020 13 weeks gestation of 07/07/2019 07/26/20 19 Abdominal cramping affecting 07/07/2019 1 09/07/2018 Threatened , antepartum 07/07/2019 07/26/20 19 Abnormal maternal glucose tolerance, antepartum 07/07/2019 08/23/2019 Iron deficiency anemia 04/20/2018 07/07/2019 documented as of this encounter (statuses as of 01/21/2020) Immunizations Name Administration Dates Next Due Influenza [...] been in contact with No / Unsure 01/21/2020 2:34 PM CDT someone who was confirmed or suspected to have Coronavirus / COVID-19? documented as of this encounter Last Filed Vital Signs Vital Sign Reading Time Taken Comments Blood Pressure 109/77 01/21/2020 2:35 PM CDT Pulse 86 01/21/2020 2:35 PM CDT Temperature 36.9 C (98.4 F) 01/21/2020 2:35 PM CDT Respiratory Rate 16 01/21/2020 2:35 PM CDT Oxygen Saturation - - Inhaled Oxygen Concentration - - Weight 64 kg (141 lb) 01/21/2020 2:35 PM CDT Height 149.9 cm (4' 11") 01/21/2020 2:35 PM CDT Body Mass Index 28.48 01/21/2020 2:35 PM CDT documented in this encounter Patient Instructions Patient InstructionsMeenakshi Melvin MA - 01/21/2020 2:30 PM CDT Patient Education After a It can take time to recover fully after a . Its important to take care of yourselfbothfor your own sake and because your new baby needs you. Incision care Tips for taking care of your incision include: You will probably be able to shower and pat the incision dry. Watch your incision for signs of infection. These include redness that gets worse or fluid draining from it. Hold a pillow against the incision when you get up from a lying or sitting position. Also do thiswhen you laugh or cough. Avoid heavy lifting. Dont lift anything heavier than your baby until your healthcare provider tells you otherwise. When to call your healthcare provider Call your healthcare provider if you have: A fever of 100.4F(38.0C) or higher Redness, pain, or discharge at the incision site that gets worse Vaginal bleeding that soaks through a pad per hour or large blood clots Severe pain in your stomach No bowel movement within 1 week after the of your baby Vaginal discharge that has a foul odor Swollen, red, and painful area in the leg Burning when urinatingor blood in the urine A rash or hives Sore, red, painful area on the breasts(may also have flu-like symptoms) Feelings of anxiety, panic, anddepression, or difficulty bonding with your baby [employer] last reviewed this educational content on 06/27/201719999172-1179 The [employer]. [address] [place] [address], [place] [address]. All rights reserved. This information is not intended as a substitute for professional medical care. Always follow your healthcare professional's instructions. documented in this encounter Progress Notes Nimo Trinidad RN - 01/21/2020 2:30 PM CDTDressing CDI, scant old drainage noted. Dressing removed. Incision CDI, edges well approximated, no s/s of infection noted. Incision cleaned with alcohol swab and covered with ABD pad. RN educated patient on wound care and when to call or go to ER for concerns. Patient verbalized understanding and agrees to plan of care. Nimo Trinidad RN 01/21/2020 2:51 PM documented in this encounter Plan of Treatment Date Type Specialty Care Team Description 02/07/2020 Office Visit Obstetrics & Gynecology Caren Guerra MD [address] [facility] [address] [place] [id number] 05/08/2020 Office Visit Obstetrics & Gynecology Caren Guerra MD [address] [facility] [address] [place] [id number] 15 Health Maintenance Due Date Last Done [...] filedocumented in this encounter Visit Diagnoses Diagnosis Encounter for post surgical wound check - Primary documented in this encounter documented as of this encounter
--- OUTSIDE RECORDS SUMMARY | 2020-03-22 18:16 | XMS REPORT | Summary of Care ---
:1985 Author Organization [facility] - [facility] Address [address] [place] [address] Care Team Providers Name Role Phone Josh Smith MD Primary Care Provider Encounter Details Date Type Department Care Team Description 12/28/2019 Patient Secure Msg [facility] Women's GuerraNohelia MD [facility]- [address], [address] [place] [address] 112 [place] [address] [phone] Allergies No Known Allergiesdocumented as of this encounter (statuses as of 01/29/2020) Medications Medication Sig Dispensed Refills Start Date [...] 1-3) or Pain (scale 4-6). proMETHazine 12.5 Take 2 30 tablet 1 11/16/2019 A ctive mg tablets by tabletIndications: mouth every 6 Abnormal uterine (six) hours bleeding as needed for Nausea and Vomiting (N/V). foLIC acid 1 mg Take 1 tablet 30 tablet 3 11/16/2019 Active tabletIndications: by mouth Retained products daily. of conception after miscarriage, S/P D&C (status post dilation and curettage) levocetirizine 5 mg 0 01/10/20 Discontinued tablet 20 montelukast 10 mg TAKE 1 TABLET 0 [...] norgestimate-ethiny Take 2 2 Package 0 11/16/2019 01/13/20 Discontinued l estradiol 0.25-35 tablets by 20 mg-mcg per mouth daily. tabletIndications: Iron deficiency anemia due to chronic blood loss, Abnormal uterine bleeding documented as of this encounter (statuses as of 01/29/2020) Active Problems Problem Noted Date Obesity (BMI 30-39.9) 01/12/2020 S/P myomectomy 01/12/2020 S/P exploratory laparotomy 01/11/2020 Abnormal uterine bleeding 01/05/2020 Overview: Added automatically from request for jeannette leticia [id number] New onset of headaches 09/26/2019 Encounter for BCP ( control pills) initial prescr iption 09/06/2019 Dysmenorrhea 09/06/2019 Intramural leiomyoma of uterus 08/07/2019 Acute on chronic blood loss anemia 08/06/2019 Chronic pain of multiple joints 04/20/2018 Seasonal allergies History of recent blood transfusion Overview: 09/23/2019 documented as of this encounter (statuses as of 01/29/2020) Resolved Problems Problem Noted Date Resolved Date Postoperative anemia due to acute blood loss 08/07/2019 01/06/2020 Retained products of conception after miscarriage 07/26/2019 01/06/2020 13 weeks gestation of 07/07/2019 07/26/20 19 Abdominal cramping affecting 07/07/2019 1 09/07/2018 Threatened , antepartum 07/07/2019 07/26/20 19 Abnormal maternal glucose tolerance, antepartum 07/07/2019 08/23/2019 Iron deficiency anemia 04/20/2018 07/07/2019 documented as of this encounter (statuses as of 01/29/2020) Immunizations Name Administration Dates Next Due Influenza [...] Obstetrics & Gynecology Caren Guerra MD [address] [facility] [address] [place] [address] [phone] 05/08/2020 Office Visit Obstetrics & Gynecology Caren Guerra MD [address] [facility] [address] [place] [address] [phone] Health Maintenance Due Date Last Done Comments VARICELLA VACCINES (1 of 2 - 1985 2-dose childhood series) DTaP,Tdap,and Td Vaccines (1 - 11/28/1995 Tdap) INFLUENZA VACCINE (#1) 2020 06/09/2019 Depression Screening 01/10/2021 01/11/2020 PAP SMEAR 05/19/2022 05/19/2019 PNEUMOCOCCAL 0-64 YEARS COMBINED Aged Out No longer eligible based on SERIES patient's age to complete this topic documented as of this encounter Results Not on filedocumented in this encounter Insurance Payer Benefit Plan / Group Subscriber ID Effective Dates Phone Address Type CORINE POOL II [id number] 2019-Present H MO/PPO/POS documented as of this encounter
--- OUTSIDE RECORDS SUMMARY | 2020-03-22 18:16 | XMS REPORT | Summary of Care ---
:1985 Author Organization [facility] - [facility] Address [address] [place] [address] Care Team Providers Name Role Phone Josh Smith MD Primary Care Provider Encounter Details Date Type Department Care Team Description 01/18/2020 Patient Secure Msg [facility] Women's GuerraNohelia MD [facility]- [address], [address] [place] [address] 112 [place] [address] [phone] Allergies No Known Allergiesdocumented as of this encounter (statuses as of 02/19/2020) Medications Medication Sig Dispensed Refills Start Date [...] as of this encounter (statuses as of 02/19/2020) Active Problems Problem Noted Date Obesity (BMI 30-39.9) 01/12/2020 S/P myomectomy 01/12/2020 S/P exploratory laparotomy 01/11/2020 New onset of headaches 09/26/2019 Encounter for BCP ( control pills) initial prescr iption 09/06/2019 Acute on chronic blood loss anemia 08/06/2019 Chronic pain of multiple joints 04/20/2018 Seasonal allergies History of recent blood transfusion Overview: 09/23/2019 documented as of this encounter (statuses as of 02/19/2020) Resolved Problems Problem Noted Date Resolved Date Abnormal uterine bleeding 01/05/2020 02/11/2020 Overview: Added automatically from request for jeannette leticia [id number] Dysmenorrhea 09/06/2019 02/11/2020 Postoperative anemia due to acute blood loss 08/07/2019 01/06/2020 Intramural leiomyoma of uterus 08/07/2019 0 Retained products of conception after miscarriage 07/26/2019 01/06/2020 13 weeks gestation of 07/07/2019 07/26/20 19 Abdominal cramping affecting 07/07/2019 1 09/07/2018 Threatened , antepartum 07/07/2019 07/26/20 19 Abnormal maternal glucose tolerance, antepartum 07/07/2019 08/23/2019 Iron deficiency anemia 04/20/2018 07/07/2019 documented as of this encounter (statuses as of 02/19/2020) Immunizations Name Administration Dates Next Due Influenza [...] been in contact with No / Unsure 02/07/2020 9:10 AM CDT someone who was confirmed or suspected to have Coronavirus / COVID-19? documented as of this encounter Last Filed Vital Signs Not on filedocumented in this encounter Plan of Treatment Date Type Specialty Care Team Description 02/13/2021 Office Visit Obstetrics & Gynecology Caren Guerra MD [address] [place] [address] [place] [address] [phone] Health Maintenance Due Date Last Done Comments VARICELLA VACCINES (1 of 2 - 1985 2-dose childhood series) DTaP,Tdap,and Td Vaccines ( - 11/28/1995 Tdap) INFLUENZA VACCINE (#1) 2020 06/09/2019 Depression Screening 01/10/2021 01/11/2020 PAP SMEAR 05/19/2022 05/19/2019 PNEUMOCOCCAL 0-64 YEARS COMBINED Aged Out No longer eligible based on SERIES patient's age to complete this topic documented as of this encounter Results Not on filedocumented in this encounter Insurance Payer Benefit Plan / Group Subscriber ID Effective Dates Phone Address Type CORINE POOL II [id number] 2019-Present H MO/PPO/POS documented as of this encounter
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
--- OUTSIDE RECORDS SUMMARY | 2020-03-22 18:16 | XMS REPORT | Summary of Care ---
:1984 Author Organization [facility] - [facility] Address [address] [place] [address] Care Team Providers Name Role Phone Josh Smith MD Primary Care Provider Encounter Details Date Type Department Care Team Description 01/18/2020 Patient Secure Msg [facility] Women's GuerraNohelia MD [facility]- [address], [address] [place] [address] 112 [place] [address] [phone] Allergies No Known Allergiesdocumented as of this [...] Added automatically from request for jeannette leticia [id number] Dysmenorrhea 09/06/2019 02/11/2020 Postoperative anemia due to [...] Visit Obstetrics & Gynecology Caren Guerra MD [address] [place] [address] [place] [address] [phone] Health Maintenance Due Date Last Done Comments [...] Dates Phone Address Type CORINE POOL II [id number] 2019-Present H MO/PPO/POS documented as of this encounter
--- OUTSIDE RECORDS SUMMARY | 2020-03-22 18:17 | XMS REPORT | Summary of Care ---
:1984 Author Organization [facility] - [facility] Address [address] [place] [address] Care Team Providers Name Role Phone Josh Smith MD Primary Care Provider Encounter Details Date Type Department Care Team Description 01/16/2020 Patient Secure [facility] Family Estela Smith, [facility] - Román EDMONDSON [address] [place] [address] [address] [place] [address] [place] [address] [place] [address] [phone] Allergies No Known Allergiesdocumented as of [...] S/P myomectomy gabapentin 300 mg Take 1 15 capsule 0 01/13/2020 01/18/20 capsuleIndications: capsule by 20 Acute on chronic mouth 3 blood loss anemia, (three) times Intramural daily for 5 leiomyoma of days. uterus, Dysmenorrhea, History of recent blood transfusion, [...] Added automatically from request for jeannette kelly [id number] Dysmenorrhea 09/06/2019 02/11/2020 Postoperative anemia due to [...] Obstetrics & Gynecology Caren Guerra MD [address] [place] [address] DR. [place] [place], [place] [address] [phone] Health Maintenance Due Date Last Done Comments [...] Phone Address Type MARY ANNBORIS CORINE II [id number] 2019-Present H MO/PPO/POS documented as of this encounter
[2020-03-22 19:00] LABS: Urine Blood NEGATIVE (NEG); Urine Glucose NEGATIVE (NEG); Urine Protein NEGATIVE (NEG); Urine Specific Gravity 1.025 (1.005-1.030)
[2020-03-22 19:00] LABS: Urine Bacteria NONE SEEN /HPF (<20); Urine RBC NONE SEEN /HPF (NONE SEEN)
[2020-03-22 19:01] LABS: Urine Culture Reflex Order NOT NEEDED
--- NOTE | 2020-03-22 20:15 | RAD REPORT ---
EXAM DESCRIPTION: US - Pelvis Complete - 03/22/2020 7:51 pm CLINICAL HISTORY: Pelvic pain FINDINGS: The uterus measures 8 x 4 x 5 centimeters. The endometrial stripe measures 15 millimeters. A fibroid is not visualized. A 2.7 centimeter right ovarian cyst. Left ovary normal size and echotexture. The right and left adnexal unremarkable No significant free fluid IMPRESSION: Borderline prominence of the endometrial stripe. Follow-up endovaginal sonogram is recom mended in approximately 6 weeks for re-evaluation 2.7 centimeter right ovarian cyst without significant free fluid
--- NOTE | 2020-03-22 20:54 | ER ---
Nurse's Notes [facility] Name: Lubna Joe Age: 34 yrs Sex: Female : 1985 Arrival Date: 03/22/2020 Time: 18:13 Bed 6 Private MD: Diagnosis: Lower abdominal pain, unspecified;Other and unspecified ovarian cysts-right Presentation: 03/22 18:32 Chief complaint: Patient states: Myomectomy on January 10, reports incision pain started jl7 today about 1430. Coronavirus screen: Client denies travel out of the [place] in the last 14 days. At this time, the client does not indicate any symptoms associated with coronavirus-19. Ebola Screen: No symptoms or risks identified at this time. Initial Sepsis Screen: Does the patient meet any 2 criteria? No. Patient's initial sepsis screen is negative. Does the patient have a suspected source of infection? No. Patient's initial sepsis screen is negative. Risk Assessment: Do you want to hurt yourself or someone else? Patient reports no desire to harm self or others. Onset of symptoms was March 22, 2020 at 14:30. Care prior to arrival: None. Transition of care: patient was not received from another setting of care. 18:32 Method Of Arrival: Ambulatory jl7 18:32 Acuity: LEONEL 3 jl7 Triage Assessment: 18:36 General: Appears in no apparent distress. uncomfortable, Behavior is calm, cooperative, jl7 appropriate for age. Pain: Complains of pain in abdomen Pain currently is 8 out of 10 on a pain scale. NEONATAL INTENSIVE CARE UNIT NURSE: 18:36 LMP N/A - Irregular menses jl7 Historical: - Allergies: 18:36 No Known Allergies; jl7 - Home Meds: 18:36 ferrous sulfate 324 mg (65 mg iron) Oral TbEC [Active]; levocetirizine 5 mg Oral tab 1 jl7 tab once daily [Active]; Sprintec (28) 0.25-35 mg-mcg Oral tab 1 tab once daily [Active]; Vitamin Oral tab 1 tab once daily [Active]; montelukast Oral [Active]; - PMHx: 18:36 Miscarriage on 07/12; uterine fibroids; jl7 - PSHx: 18:36 Myomectomy; jl7 - Immunization history:: Adult Immunizations up to date. - Social history:: Smoking status: Patient denies any tobacco usage or history of. Screenin:36 Abuse screen: Denies threats or abuse. Denies injuries from another. Nutritional bp screening: No deficits noted. Tuberculosis screening: No symptoms or risk factors identified. Fall Risk None identified. Assessment: 18:35 General: SEE TRIAGE NOTE. bp 19:05 General: Appears comfortable, Behavior is appropriate for age. Pain: Complains of pain ea in left lower quadrant Pain does not radiate. Pain at worst was 10 out of 10 on a pain scale. Quality of pain is described as burning, Aggravated by increased activity. Neuro: Level of Consciousness is awake, alert, obeys commands, Oriented to person, place, time. Respiratory: Airway is patent Respiratory effort is even, unlabored, Respiratory pattern is regular, symmetrical. Derm: Skin is pink, warm \T\ dry. Musculoskeletal: Circulation, motion, and sensation intact. 20:27 Reassessment: Patient and/or family updated on plan of care and expected duration. Pain mt2 level reassessed. Patient is alert, oriented x 3, equal unlabored respirations, skin warm/dry/pink. General: Appears comfortable, Behavior is cooperative. 21:06 Reassessment: Patient and/or family updated on plan of care and expected duration. Pain mt2 level reassessed. Patient is alert, oriented x 3, equal unlabored respirations, skin warm/dry/pink. General: Appears comfortable, Behavior is cooperative. Pain: Complains of pain in pelvis Pain currently is 5 out of 10 on a pain scale. Vital Signs: 18:32 BP 124 / 74; Pulse 72; Resp 16; Temp 98.1; Pulse Ox 100% ; Weight 64.41 kg; Pain 8/10; jl7 19:24 BP 97 / 72; Pulse 70; Resp 18; Pulse Ox 100% ; ea 20:27 BP 109 / 76; Pulse 74; Resp 16; Pulse Ox 100% ; Pain 0/10; mt2 21:06 BP 110 / 74; Pulse 75; Resp 16; Pulse Ox 99% ; Pain 5/10; mt2 ED Course: 18:13 Patient arrived in ED. ag5 18:13 Enrico Rodriguez MD is Private Physician. ag5 18:32 Ney Mena, JAZMINE is Primary Nurse. bp 18:34 Terri Hill F[facility]-C [facility]. snw 18:34 Chon Hou MD is Attending Physician. snw 18:34 Triage completed. jl7 18:36 Arm band placed on right wrist. Patient placed in an exam room, on a stretcher. jl7 18:36 Patient has correct armband on for positive identification. Bed in low position. Call bp light in reach. Side rails up X2. 19:51 US Pelvis Complete In Process Unspecified. EDMS 21:07 No provider procedures requiring assistance completed. Patient did not have IV access mt2 during this emergency room visit. Administered Medications: 21:06 Drug: TORadol 30 mg Route: IM; Site: right deltoid; mt2 21:07 Follow up: Response: Medication administered at discharge. mt2 Outcome: 20:54 Discharge ordered by . snw 21:07 Discharged to home ambulatory. mt2 21:07 Condition: good 21:07 Discharge instructions given to patient, Instructed on discharge instructions, follow up and referral plans. medication usage, Demonstrated understanding of instructions, follow-up care, medications, Prescriptions given X 1. 21:08 Patient left the ED. mt2 Signatures: Dispatcher [employer] EDND Terri Hill FNP-C NURSERYPERSON-Csnw Jerry Almaraz RN RN jl7 Antunez, Elena RN Ney Johnson ea, RN RN Raman Hall ag5 Maryuri Pompa RN RN mt2 Corrections: (The following items were deleted from the chart) 20:37 20:27 BP 109 / 76; Pulse 74bpm; Resp 16bpm; Pulse Ox 100%; mt2 mt2
--- NOTE | 2020-03-22 20:54 | EDPHYS ---
Physician Documentation [facility] Name: Lubna Joe Age: 34 yrs Sex: Female : 1985 Arrival Date: 03/22/2020 Time: 18:13 Bed 6 Private MD: ED Physician Chon Hou HPI: 03/22 20:52 This 34 yrs old Female presents to ER via Ambulatory with complaints of Side snw Pain. 20:52 Onset: The symptoms/episode began/occurred suddenly. Associated signs and symptoms: The snw patient has no apparent associated signs or symptoms. The patient has not experienced similar symptoms in the past. as noted. 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 - Social history:: Smoking status: Patient denies any tobacco usage or history of. ROS: 20:51 Constitutional: Negative for fever, chills, and weight loss, Eyes: Negative for injury, snw pain, redness, and discharge, ENT: Negative for injury, pain, and discharge, Neck: Negative for injury, pain, and swelling, Cardiovascular: Negative for chest pain, palpitations, and edema, Respiratory: Negative for shortness of breath, cough, wheezing, and pleuritic chest pain, Back: Negative for injury and pain, : Negative for injury, bleeding, discharge, and swelling, MS/Extremity: Negative for injury and deformity, Skin: Negative for injury, rash, and discoloration, Neuro: Negative for headache, weakness, numbness, tingling, and seizure, Psych: Negative for depression, anxiety, suicide ideation, homicidal ideation, and hallucinations. 20:51 Abdomen/GI: Positive for abdominal pain, at incision scar. Exam: 20:49 Constitutional: This is a well developed, well nourished patient who is awake, alert, snw and in no acute distress. Head/Face: Normocephalic, atraumatic. Eyes: Pupils equal round and reactive to light, extra-ocular motions intact. Lids and lashes normal. Conjunctiva and sclera are non-icteric and not injected. Cornea within normal limits. Periorbital areas with no swelling, redness, or edema. ENT: Nares patent. No nasal discharge, no septal abnormalities noted. Tympanic membranes are normal and external auditory canals are clear. Oropharynx with no redness, swelling, or masses, exudates, or evidence of obstruction, uvula midline. Mucous membranes moist. Neck: Trachea midline, no thyromegaly or masses palpated, and no cervical lymphadenopathy. Supple, full range of motion without nuchal rigidity, or vertebral point tenderness. No Meningismus. Chest/axilla: Normal chest wall appearance and motion. Nontender with no deformity. No lesions are appreciated. Cardiovascular: Regular rate and rhythm with a normal S1 and S2. No gallops, murmurs, or rubs. Normal PMI, no JVD. No pulse deficits. Respiratory: Lungs have equal breath sounds bilaterally, clear to auscultation and percussion. No rales, rhonchi or wheezes noted. No increased work of breathing, no retractions or nasal flaring. Back: No spinal tenderness. No costovertebral tenderness. Full range of motion. Skin: Warm, dry with normal turgor. Normal color with no rashes, no lesions, and no evidence of cellulitis. MS/ Extremity: Pulses equal, no cyanosis. Neurovascular intact. Full, normal range of motion. Neuro: Awake and alert, GCS 15, oriented to person, place, time, and situation. Cranial nerves II-XII grossly intact. Motor strength 5/5 in all extremities. Sensory grossly intact. Cerebellar exam normal. Normal gait. Psych: Awake, alert, with orientation to person, place and time. Behavior, mood, and affect are within normal limits. 20:49 Abdomen/GI: Inspection: scar(s), are noted in the suprapubic area, Myomectomy in December, pt states left side of incision with tenderness, pulling sensation. Mild tenderness to palpation., Palpation: mild abdominal tenderness, in the suprapubic area. Vital Signs: 18:32 BP 124 / 74; Pulse 72; Resp 16; Temp 98.1; Pulse Ox 100% ; Weight 64.41 kg; Pain 8/10; jl7 19:24 BP 97 / 72; Pulse 70; Resp 18; Pulse Ox 100% ; ea 20:27 BP 109 / 76; Pulse 74; Resp 16; Pulse Ox 100% ; Pain 0/10; mt2 21:06 BP 110 / 74; Pulse 75; Resp 16; Pulse Ox 99% ; Pain 5/10; mt2 MDM: 18:49 Patient medically screened. snw 21:05 Data reviewed: vital signs, nurses notes. Data interpreted: Pulse oximetry: on room air snw is 100 %. Interpretation: normal. Counseling: I had a detailed discussion with the patient and/or guardian regarding: the historical points, exam findings, and any diagnostic results supporting the discharge/admit diagnosis, lab results, radiology results, the need for outpatient follow up, to return to the emergency department if symptoms worsen or persist or if there are any questions or concerns that arise at home. Special discussion: Based on the patient's Hx, exam, and Dx evaluation, there is no indication for emergent surgery or inpatient Tx. It is understood by the patient/guardian that if the Sx's persist or worsen they need to return immediately for re-evaluation. Based on the history and exam findings, there is no indication for further emergent testing or inpatient evaluation. I discussed with the patient/guardian the need to see the OB Gyne specialist for further evaluation of the symptoms. I discussed with the patient/guardian the need to see the primary care provider for further evaluation of the symptoms. 03/22 18:35 Order name: Urine Culture snw 03/22 18:35 Order name: Urine Microscopic Only; Complete Time: 19:07 snw 03/22 18:46 Order name: Urine Dipstick--Ancillary (enter results); Complete Time: 19: bd 03/22 18:46 Order name: Urine --Ancillary (enter results); Complete Time: 19: bd 03/22 19:20 Order name: US Pelvis Complete; Complete Time: 20:21 snw 03/22 18:35 Order name: Urine Test (obtain specimen); Complete Time: 18:46 snw 03/22 18:35 Order name: Urine Dipstick-Ancillary (obtain specimen); Complete Time: 18:46 snw Administered Medications: 21:06 Drug: TORadol 30 mg Route: IM; Site: right deltoid; mt2 21:07 Follow up: Response: Medication administered at discharge. mt2 Disposition: 03/23 06:57 Co-signature as Attending Physician, Chon Hou MD. rn Disposition: 03/22/20 20:54 Discharged to Home. Impression: Lower abdominal pain, unspecified, Other and unspecified ovarian cysts - right. - Condition is Stable. - Discharge Instructions: Abdominal Pain, Adult, Ovarian Cyst. - Prescriptions for Mobic 7.5 mg Oral Tablet - take 1 tablet by ORAL route once daily take with food; 20 tablet. - Medication Reconciliation Form, Thank You Letter, Antibiotic Education, Prescription Opioid Use form. - Follow up: Emergency Department; When: As needed; Reason: Worsening of condition. Follow up: Private Physician; When: 1 week; Reason: Recheck today's complaints, Continuance of care, Re-evaluation by your physician. Signatures: Dispatcher [employer] EDMS Terri Hill, MOLDED GRID AND PARTS INSPECTOR-C MOLDED GRID AND PARTS INSPECTOR-Csnw Chon Hou MD MD rn Leal, Jahala, RN RN jl7 Maryuri Pompa RN RN mt2 Corrections: (The following items were deleted from the chart) 03/22 21:08 20:54 03/22/2020 20:54 Discharged to Home. Impression: Lower abdominal pain, mt2 unspecified; Other and unspecified ovarian cysts - right. Condition is Stable. Forms are Medication Reconciliation Form, Thank You Letter, Antibiotic Education, Prescription Opioid Use. Follow up: Emergency Department; When: As needed; Reason: Worsening of condition. Follow up: Private Physician; When: 1 week; Reason: Recheck today's complaints, Continuance of care, Re-evaluation by your physician. snw
[2020-03-22] MEDS ORDERED: KETOROLAC 30 MG/ML INJ ONE (21:08)
== END 2020-03-22 21:08 | disposition home or self-care (01) ==
LOC: ER 18:11
DX: N83.291 Other ovarian cyst, right side (principal)
CPT/HCPCS: 76856; 81003; 81015; 81025; 87086; 87088; 96372; 99283